=== PATIENT | male | born 1940 | race Caucasian/White ===

== ENCOUNTER 2018-10-10 13:58 | Inpatient (IN) ==
[2018-10-10] MEDS ORDERED: RAPID SEQUENCE INDUCTION BAG ONE (14:04)
[2018-10-10] MEDS ORDERED: PIPERACILLIN/TAZOBACTAM 4.5 GM/120 ML BAG IV ONE (14:21)
[2018-10-10] MEDS ORDERED: PIPERACILL/TAZOBAC CONSULT ACTIVE PRN (14:21)
--- NOTE | 2018-10-10 14:31 | XRay Report ---
XR chest 1V portable HISTORY: Sepsis COMPARISON: None. FINDINGS: No pneumothorax. Partially loculated small left pleural effusion. Right lung is essentially clear. The heart is normal in size. Left upper lobe and basilar densities are noted. IMPRESSION: 1. Partially loculated small left pleural effusion. 2. Left lung densities which may represent atelectasis or pneumonia. Electronically signed by: Devante Jorge M.D. 10/10/2018 2:30 PM
[2018-10-10 14:46] LABS: iSTAT Creatinine 2.9 mg/dl (0.6-1.3); iSTAT Hemoglobin 17.3 g/dl (14.0-18.0); iSTAT Ionized Calcium 1.2 mmol/l (1.12-1.32)
[2018-10-10 14:49] LABS: INR 1.3 (0.9-1.1); Partial Thromboplastin Time 26.3 Seconds (21.0-31.0); Prothrombin Time 12.9 Seconds (9.0-12.0)
[2018-10-10 14:49] LABS: Base Excess VBG -3.4 mEq/L; Oxygen Saturation VBG 62.4 %; pH VBG 7.31 (7.36-7.41)
--- NOTE | 2018-10-10 14:58 | Emergency Department Note ---
Entered by Gillian Purvis acting as a scribe for History of Present Illness General Chief complaint: Fall Source: EMS History of Present Illness Onset (ago): day(s) 5 Pain Consistency: + now resolved and + other (episode ) Quality: + other (fall) Associated symptoms: + other (negative leg pain) Treatments prior to arrival: other (Albuterol ) The patient is a 77 year old male who presents to the Emergency Room with complaints of an episode of a fall that occurred 5 days prior to arrival. Per EMS, the patient fell in his apartment and was unable to get up. Per EMS, the patient was on the floor until his neighbors heard him yelling just prior to arrival and called for help. The patient denies hurting himself. The patient denies leg pain. He denies previous surgeries. Per EMS, the patient received albuterol just prior to arrival. Home Medications Home Medications Medication Instructions Recorded Confirmed Type No Known Home Medications 10/10/18 10/10/18 History Allergies Allergy/AdvReac Type Severity Reaction Status Date / Time No Known Allergies Allergy Unverified 10/10/18 14:52 Past Med/Surg History Medical History Diabetes mellitus (Chronic) Family History Mother Heart attack Social History Feels Safe at Home: Yes Smoking Status: Unknown if ever smoked Hx Alcohol Use: No Hx Substance Use: No Review of Systems See HPI for pertinent positives & negatives. and A total of 10 systems reviewed and were otherwise negative Physical Exam Vital Signs Vital Signs - 24 hr 10/10/18 14:02 10/10/18 14:19 10/10/18 14:30 Temperature Temperature Source Sepsis Recent Fever Within 48 Hours Sepsis Action Taken by Nursing Pulse Rate 105 H 106 H 102 H Pulse Rhythm Pulse Strength Respiratory Rate Respiratory Effort / Characteristics Respiratory Depth Respiratory Pattern Blood Pressure 175/106 H Blood Pressure Mean 129 Blood Pressure Position Pulse Oximetry 100 89 L 96 Oxygen Delivery Method Fraction of Inspired Oxygen 10/10/18 14:33 10/10/18 15:01 10/10/18 15:02 Temperature Temperature Source Sepsis Recent Fever Within 48 Hours Sepsis Action Taken by Nursing Pulse Rate 104 H 101 H 99 H Pulse Rhythm Pulse Strength Respiratory Rate 29 H Respiratory Effort / Characteristics Spontaneous Accessory Muscle Use Labored Short of Breath Respiratory Depth Deep Respiratory Pattern Rapid/Deep Tachypnea Blood Pressure 144/103 H Blood Pressure Mean 116 Blood Pressure Position Pulse Oximetry 100 Oxygen Delivery Method Fraction of Inspired Oxygen 60 10/10/18 15:03 10/10/18 15:15 10/10/18 15:30 Temperature 36.8 C Temperature Source Oral Sepsis Recent Fever Within 48 Hours No Sepsis Action Taken by Nursing No Action Required Pulse Rate 104 H 104 H 99 H Pulse Rhythm Regular Pulse Strength Normal Respiratory Rate 30 H Respiratory Effort / Characteristics Non-Labored Spontaneous Respiratory Depth Normal Respiratory Pattern Regular Blood Pressure 175/106 H 164/131 H Blood Pressure Mean 129 142 Blood Pressure Position Sitting Pulse Oximetry 85 L 99 100 Oxygen Delivery Method BiPAP Fraction of Inspired Oxygen 60 10/10/18 15:31 10/10/18 16:35 Temperature Temperature Source Sepsis Recent Fever Within 48 Hours Sepsis Action Taken by Nursing Pulse Rate 99 H 96 H Pulse Rhythm Pulse Strength Respiratory Rate 26 H Respiratory Effort / Characteristics Respiratory Depth Respiratory Pattern Blood Pressure 122/105 H 162/100 H Blood Pressure Mean 110 Blood Pressure Position Pulse Oximetry 97 94 Oxygen Delivery Method BiPAP Fraction of Inspired Oxygen 60 GENERAL: Patient is awake but slow to answer questions. He appears to be in significant distress. EYES: Pupils are equal round and reactive to light. There is significant ecchymosis in both eyes. ENT: Mucous members are dry. NECK: The neck is nontender and supple. RESPIRATORY: Shallow and ineffective respirations are noted. There are diminished breath sounds noted throughout left greater than right. Scattered rales are noted in all lung [place]. CARDIOVASCULAR: Diminished heart tones are noted. Heart is regular rate and rhythm. There is no definite murmur noted. GASTROINTESTINAL: The abdomen is soft. Bowel sounds are present in all quadrants. Abdomen is nontender MUSCULOSKELETAL/EXTREMITIES: There is no evidence of gross deformity full range of motion is noted in the hips and shoulders SKIN: There is severe edema over all extremities left side greater than right. There is significant venous stasis changes in both lower extremities. Pedal edema was noted bilaterally. NEUROLOGIC: Patient is oriented to person place and time. Strength is symmetric but diminished. Course 1359: Past medical records reviewed. The patient was evaluated in room B1, and a complete history and physical examination were performed. 1525: [facility]. Consultations Consultation #1: [facility] will further evaluate the patient. Time: 15:25 Administered Medications Sodium Chloride (Nss 1000ml) 1,000 mls @ 80 mls/hr IV .[id number] MEMO Stop: 11/09/18 16:50 Last Admin: 10/10/18 17:31 Dose: 80 mls/hr Ampicillin Sodium/Sulbactam Sodium 3,000 mg/ Sodium Chloride 108 mls @ 200 mls/ hr IV Q12H MEMO Stop: 10/17/18 16:59 Last Infusion: 10/10/18 18:21 Dose: 0 mls/hr Admin: 10/10/18 17:31 Dose: 200 mls/hr Discontinued Medications Aspirin (Aspirin Chew) 324 mg PO NOW STA Stop: 10/10/18 18:01 Last Admin: 10/10/18 18:17 Dose: 324 mg Piperacillin Sod/Tazobactam Sod (Zosyn) 4.5 gm in 120 mls @ 240 mls/hr IV NOW ONE Stop: 10/10/18 14:50 Last Admin: 10/10/18 15:20 Dose: 240 mls/hr Sodium Chloride (Nss 1000ml) 1,000 mls @ 999 mls/hr IV .[id number] ONE Stop: 10/10/18 16:11 Last Infusion: 10/10/18 15:20 Dose: 0 mls/hr Admin: 10/10/18 14:15 Dose: 999 mls/hr Furosemide 20 mg/ Syringe 2 mls @ 4 mls/min IV ONE ONE Stop: 10/10/18 17:51 Last Admin: 10/10/18 18:13 Dose: 4 mls/min Miscellaneous () Confirm Administered Dose 1 ea .ROUTE .STK-MED ONE Stop: 10/10/18 14:05 Last Admin: 10/10/18 15:39 Dose: Not Given Medical Decision Making Differential Diagnosis Differential includes acute coronary syndrome, myocardial infarction, CVA, TIA , anemia, infection, pneumonia, UTI, pyelonephritis, poor nutrition, dehydration , electrolyte disturbance,hypoglycemia. Medical Records Attestation: I reviewed the patient's medical records. Home Medications Current Medication List: was personally reviewed by me Laboratory Data Attestation: I reviewed the patient's lab results. Result diagrams: 10/10/18 14:25 10/10/18 14:25 Lab Results 10/10/18 10/10/18 10/10/18 Range/Units 14:25 14:25 14:25 WBC 12.49 H (4.8-10.8) K/uL RBC 5.62 (4.7-6.1) M/uL Hgb 17.5 (14.0-18.0) g/dL POC Hgb (14.0-18.0) g/dl Hct 50.3 (42-52) % POC Hct (42-52) % MCV 89.5 (80-100) fL MCH 31.1 (25-34) pg MCHC 34.8 (32-36) g/dL RDW Std Deviation 51.4 H (36.4-46.3) fL RDW Coeff of Jumana 15.9 H (11.5-14.5) % Plt Count 96 L (130-400) K/uL MPV 12.0 H (7.4-10.4) fL Immature Gran % (Auto) 0.5 % Neut % (Auto) 96.4 % Lymph % (Auto) 1.3 % Piatt % (Auto) 1.8 % Eos % (Auto) 0.0 % Baso % (Auto) 0.0 % Immature Gran # (Auto) 0.06 H (0.00-0.02) K/uL Neut # (Auto) 12.05 H (1.4-6.5) K/uL Lymph # (Auto) 0.16 L (1.2-3.4) K/uL Piatt # (Auto) 0.22 (0.11-0.59) K/uL Eos # (Auto) 0.00 (0-0.5) K/uL Baso # (Auto) 0.00 (0-0.2) K/uL Platelet Estimate Decreased (Normal) ESR (0-14) mm/hr PT 12.9 H (9.0-12.0) Seconds INR 1.3 H (0.9-1.1) APTT 26.3 (21.0-31.0) Seconds PTT Ratio 1.0 VBG pH (7.36-7.41) VBG pCO2 (38-50) mmHg VBG pO2 mmHg VBG HCO3 mmol/L VBG O2 Saturation % VBG Base Excess mEq/L Barometric Pressure mm/Hg POC Sodium (135-144) mEq/L Sodium 144 (136-145) mmol/L POC Potassium (3.3-5.0) mEq/L Potassium 4.1 (3.5-5.1) mmol/L POC Chloride (101-112) mEq/L Chloride 110 H (98-107) mmol/L Carbon Dioxide 22 (21-32) mmol/L POC Total CO2 (24-31) mEq/l Anion Gap 12.0 H (3-11) POC Anion Gap (16-25) mmol/L POC BUN (7-18) mg/dl BUN 60 H (7-18) mg/dl Creatinine 3.23 H (0.6-1.4) mg/dl POC Creatinine (0.6-1.3) mg/dl Est Cr Clr Drug Dosing 22.5 ml/min Est GFR ( Amer) 20.6 Est GFR (Non-Af Amer) 17.8 BUN/Creatinine Ratio 18.6 (10-20) Glucose 109 H (70-99) mg/dl POC Glucose (other) (70-99) mg/dl POC Lactic Acid Nito (0.90-1.70) mmol/L Calcium 8.9 (8.5-10.1) mg/dl POC Ioniz Calcium Doris (1.12-1.32) mmol/l Magnesium 2.3 (1.8-2.4) mg/dl Total Bilirubin 1.2 H (0.2-1) mg/dl AST 98 H (15-37) U/L ALT 52 (12-78) U/L Alkaline Phosphatase 106 (45-117) U/L Total Creatine Kinase 1530 H (39-308) U/L CK-MB (CK-2) 19.7 H (0.5-3.6) ng/ml CK/CKMB % Calc 1.3 (0-3.0) Troponin I 1.110 H* (0-0.045) ng/ml C-Reactive Protein 39.30 H (0-0.29) mg/dl NT-Pro-B Natriuret Pep > 41454 H (0-900) pg/ml Total Protein 7.0 (6.4-8.2) gm/dl Albumin 2.4 L (3.4-5.0) gm/dl Globulin 4.6 H (2.5-4.0) gm/dl Albumin/Globulin Ratio 0.5 L (0.9-2) Amylase 26 (25-115) U/L Lipase 85 (73-393) U/L Procalcitonin (0-0.5) ng/ml Urine Color Urine Appearance (Clear) Urine pH (4.5-7.5) Ur Specific [place] (1.000-1.030) Urine Protein (Negative) Urine Glucose (UA) (Negative) Urine Ketones (Negative) Urine Blood (Negative) Urine Nitrite (Negative) Urine Bilirubin (Negative) Urine Urobilinogen (Negative) Ur Leukocyte Esterase (Negative) Urine WBC (Auto) (0-5) /hpf Urine RBC (Auto) (0-4) /hpf U Hyaline Cast (Auto) (0-5) /lpf U Epithel Cells (Auto) (0-5) /lpf Urine Bacteria (Auto) (Negative) Urine Yeast 10/10/18 10/10/18 10/10/18 Range/Units 14:25 14:25 14:25 WBC (4.8-10.8) K/uL RBC (4.7-6.1) M/uL Hgb (14.0-18.0) g/dL POC Hgb (14.0-18.0) g/dl Hct (42-52) % POC Hct (42-52) % MCV (80-100) fL MCH (25-34) pg MCHC (32-36) g/dL RDW Std Deviation (36.4-46.3) fL RDW Coeff of Jumana (11.5-14.5) % Plt Count (130-400) K/uL MPV (7.4-10.4) fL Immature Gran % (Auto) % Neut % (Auto) % Lymph % (Auto) % Piatt % (Auto) % Eos % (Auto) % Baso % (Auto) % Immature Gran # (Auto) (0.00-0.02) K/uL Neut # (Auto) (1.4-6.5) K/uL Lymph # (Auto) (1.2-3.4) K/uL Piatt # (Auto) (0.11-0.59) K/uL Eos # (Auto) (0-0.5) K/uL Baso # (Auto) (0-0.2) K/uL Platelet Estimate (Normal) ESR 35 H (0-14) mm/hr PT (9.0-12.0) Seconds INR (0.9-1.1) APTT (21.0-31.0) Seconds PTT Ratio VBG pH (7.36-7.41) VBG pCO2 (38-50) mmHg VBG pO2 mmHg VBG HCO3 mmol/L VBG O2 Saturation % VBG Base Excess mEq/L Barometric Pressure mm/Hg POC Sodium (135-144) mEq/L Sodium (136-145) mmol/L POC Potassium (3.3-5.0) mEq/L Potassium (3.5-5.1) mmol/L POC Chloride (101-112) mEq/L Chloride (98-107) mmol/L Carbon Dioxide (21-32) mmol/L POC Total CO2 (24-31) mEq/l Anion Gap (3-11) POC Anion Gap (16-25) mmol/L POC BUN (7-18) mg/dl BUN (7-18) mg/dl Creatinine (0.6-1.4) mg/dl POC Creatinine (0.6-1.3) mg/dl Est Cr Clr Drug Dosing ml/min Est GFR ( Amer) Est GFR (Non-Af Amer) BUN/Creatinine Ratio (10-20) Glucose (70-99) mg/dl POC Glucose (other) (70-99) mg/dl POC Lactic Acid Nito (0.90-1.70) mmol/L Calcium (8.5-10.1) mg/dl POC Ioniz Calcium Doris (1.12-1.32) mmol/l Magnesium Cancelled (1.8-2.4) mg/dl Total Bilirubin (0.2-1) mg/dl AST (15-37) U/L ALT (12-78) U/L Alkaline Phosphatase (45-117) U/L Total Creatine Kinase (39-308) U/L CK-MB (CK-2) Cancelled (0.5-3.6) ng/ml CK/CKMB % Calc Cancelled (0-3.0) Troponin I Cancelled (0-0.045) ng/ml C-Reactive Protein Cancelled (0-0.29) mg/dl NT-Pro-B Natriuret Pep Cancelled (0-900) pg/ml Total Protein (6.4-8.2) gm/dl Albumin (3.4-5.0) gm/dl Globulin (2.5-4.0) gm/dl Albumin/Globulin Ratio (0.9-2) Amylase Cancelled (25-115) U/L Lipase Cancelled (73-393) U/L Procalcitonin 14.92 H (0-0.5) ng/ml Urine Color Urine Appearance (Clear) Urine pH (4.5-7.5) Ur Specific [place] (1.000-1.030) Urine Protein (Negative) Urine Glucose (UA) (Negative) Urine Ketones (Negative) Urine Blood (Negative) Urine Nitrite (Negative) Urine Bilirubin (Negative) Urine Urobilinogen (Negative) Ur Leukocyte Esterase (Negative) Urine WBC (Auto) (0-5) /hpf Urine RBC (Auto) (0-4) /hpf U Hyaline Cast (Auto) (0-5) /lpf U Epithel Cells (Auto) (0-5) /lpf Urine Bacteria (Auto) (Negative) Urine Yeast 10/10/18 10/10/18 10/10/18 Range/Units 14:25 14:25 14:33 WBC (4.8-10.8) K/uL RBC (4.7-6.1) M/uL Hgb (14.0-18.0) g/dL POC Hgb 17.3 (14.0-18.0) g/dl Hct (42-52) % POC Hct 51 (42-52) % MCV (80-100) fL MCH (25-34) pg MCHC (32-36) g/dL RDW Std Deviation (36.4-46.3) fL RDW Coeff of Jumana (11.5-14.5) % Plt Count (130-400) K/uL MPV (7.4-10.4) fL Immature Gran % (Auto) % Neut % (Auto) % Lymph % (Auto) % Piatt % (Auto) % Eos % (Auto) % Baso % (Auto) % Immature Gran # (Auto) (0.00-0.02) K/uL Neut # (Auto) (1.4-6.5) K/uL Lymph # (Auto) (1.2-3.4) K/uL Piatt # (Auto) (0.11-0.59) K/uL Eos # (Auto) (0-0.5) K/uL Baso # (Auto) (0-0.2) K/uL Platelet Estimate (Normal) ESR (0-14) mm/hr PT (9.0-12.0) Seconds INR (0.9-1.1) APTT (21.0-31.0) Seconds PTT Ratio VBG pH (7.36-7.41) VBG pCO2 (38-50) mmHg VBG pO2 mmHg VBG HCO3 mmol/L VBG O2 Saturation % VBG Base Excess mEq/L Barometric Pressure mm/Hg POC Sodium 147 H (135-144) mEq/L Sodium (136-145) mmol/L POC Potassium 4.0 (3.3-5.0) mEq/L Potassium (3.5-5.1) mmol/L POC Chloride 107 (101-112) mEq/L Chloride (98-107) mmol/L Carbon Dioxide (21-32) mmol/L POC Total CO2 22 L (24-31) mEq/l Anion Gap (3-11) POC Anion Gap 23.0 (16-25) mmol/L POC BUN 56 H (7-18) mg/dl BUN (7-18) mg/dl Creatinine (0.6-1.4) mg/dl POC Creatinine 2.9 H (0.6-1.3) mg/dl Est Cr Clr Drug Dosing ml/min Est GFR ( Amer) Est GFR (Non-Af Amer) BUN/Creatinine Ratio (10-20) Glucose (70-99) mg/dl POC Glucose (other) 114 H (70-99) mg/dl POC Lactic Acid Nito 3.75 H (0.90-1.70) mmol/L Calcium (8.5-10.1) mg/dl POC Ioniz Calcium Doris 1.20 (1.12-1.32) mmol/l Magnesium (1.8-2.4) mg/dl Total Bilirubin (0.2-1) mg/dl AST (15-37) U/L ALT (12-78) U/L Alkaline Phosphatase (45-117) U/L Total Creatine Kinase Cancelled (39-308) U/L CK-MB (CK-2) (0.5-3.6) ng/ml CK/CKMB % Calc (0-3.0) Troponin I (0-0.045) ng/ml C-Reactive Protein (0-0.29) mg/dl NT-Pro-B Natriuret Pep (0-900) pg/ml Total Protein (6.4-8.2) gm/dl Albumin (3.4-5.0) gm/dl Globulin (2.5-4.0) gm/dl Albumin/Globulin Ratio (0.9-2) Amylase (25-115) U/L Lipase (73-393) U/L Procalcitonin (0-0.5) ng/ml Urine Color Urine Appearance (Clear) Urine pH (4.5-7.5) Ur Specific [place] (1.000-1.030) Urine Protein (Negative) Urine Glucose (UA) (Negative) Urine Ketones (Negative) Urine Blood (Negative) Urine Nitrite (Negative) Urine Bilirubin (Negative) Urine Urobilinogen (Negative) Ur Leukocyte Esterase (Negative) Urine WBC (Auto) (0-5) /hpf Urine RBC (Auto) (0-4) /hpf U Hyaline Cast (Auto) (0-5) /lpf U Epithel Cells (Auto) (0-5) /lpf Urine Bacteria (Auto) (Negative) Urine Yeast 10/10/18 10/10/18 Range/Units 14:37 14:40 WBC (4.8-10.8) K/uL RBC (4.7-6.1) M/uL Hgb (14.0-18.0) g/dL POC Hgb (14.0-18.0) g/dl Hct (42-52) % POC Hct (42-52) % MCV (80-100) fL MCH (25-34) pg MCHC (32-36) g/dL RDW Std Deviation (36.4-46.3) fL RDW Coeff of Jumana (11.5-14.5) % Plt Count (130-400) K/uL MPV (7.4-10.4) fL Immature Gran % (Auto) % Neut % (Auto) % Lymph % (Auto) % Piatt % (Auto) % Eos % (Auto) % Baso % (Auto) % Immature Gran # (Auto) (0.00-0.02) K/uL Neut # (Auto) (1.4-6.5) K/uL Lymph # (Auto) (1.2-3.4) K/uL Piatt # (Auto) (0.11-0.59) K/uL Eos # (Auto) (0-0.5) K/uL Baso # (Auto) (0-0.2) K/uL Platelet Estimate (Normal) ESR (0-14) mm/hr PT (9.0-12.0) Seconds INR (0.9-1.1) APTT (21.0-31.0) Seconds PTT Ratio VBG pH 7.31 L (7.36-7.41) VBG pCO2 47 (38-50) mmHg VBG pO2 34 mmHg VBG HCO3 23 mmol/L VBG O2 Saturation 62.4 % VBG Base Excess -3.4 mEq/L Barometric Pressure 741.9 mm/Hg POC Sodium (135-144) mEq/L Sodium (136-145) mmol/L POC Potassium (3.3-5.0) mEq/L Potassium (3.5-5.1) mmol/L POC Chloride (101-112) mEq/L Chloride (98-107) mmol/L Carbon Dioxide (21-32) mmol/L POC Total CO2 (24-31) mEq/l Anion Gap (3-11) POC Anion Gap (16-25) mmol/L POC BUN (7-18) mg/dl BUN (7-18) mg/dl Creatinine (0.6-1.4) mg/dl POC Creatinine (0.6-1.3) mg/dl Est Cr Clr Drug Dosing ml/min Est GFR ( Amer) Est GFR (Non-Af Amer) BUN/Creatinine Ratio (10-20) Glucose (70-99) mg/dl POC Glucose (other) (70-99) mg/dl POC Lactic Acid Nito (0.90-1.70) mmol/L Calcium (8.5-10.1) mg/dl POC Ioniz Calcium Doris (1.12-1.32) mmol/l Magnesium (1.8-2.4) mg/dl Total Bilirubin (0.2-1) mg/dl AST (15-37) U/L ALT (12-78) U/L Alkaline Phosphatase (45-117) U/L Total Creatine Kinase (39-308) U/L CK-MB (CK-2) (0.5-3.6) ng/ml CK/CKMB % Calc (0-3.0) Troponin I (0-0.045) ng/ml C-Reactive Protein (0-0.29) mg/dl NT-Pro-B Natriuret Pep (0-900) pg/ml Total Protein (6.4-8.2) gm/dl Albumin (3.4-5.0) gm/dl Globulin (2.5-4.0) gm/dl Albumin/Globulin Ratio (0.9-2) Amylase (25-115) U/L Lipase (73-393) U/L Procalcitonin (0-0.5) ng/ml Urine Color Dark Yellow Urine Appearance Turbid H (Clear) Urine pH 5.0 (4.5-7.5) Ur Specific [place] 1.017 (1.000-1.030) Urine Protein 3+ H (Negative) Urine Glucose (UA) Negative (Negative) Urine Ketones Negative (Negative) Urine Blood 3+ H (Negative) Urine Nitrite Negative (Negative) Urine Bilirubin Negative (Negative) Urine Urobilinogen Negative (Negative) Ur Leukocyte Esterase 3+ H (Negative) Urine WBC (Auto) >30 H (0-5) /hpf Urine RBC (Auto) 5-10 H (0-4) /hpf U Hyaline Cast (Auto) 1-5 (0-5) /lpf U Epithel Cells (Auto) 5-10 H (0-5) /lpf Urine Bacteria (Auto) 3+ H (Negative) Urine Yeast Not Reportable Imaging Data Radiologist's Impression: Radiology results as stated below per my review and the radiologist's interpretation: CT OF THE ABDOMEN AND PELVIS WITHOUT CONTRAST CLINICAL HISTORY: found on floor COMPARISON STUDY: No previous studies for comparison. TECHNIQUE: Axial images of the abdomen and pelvis were obtained without IV contrast. Images were reviewed in the axial, sagittal, and coronal planes. Automated exposure control was utilized for the study. A dose lowering technique was utilized adhering to the principles of ALARA. FINDINGS: Please note that the chest will be reported separately. Evaluation of the abdomen and pelvis is suboptimal on this unenhanced exam. Bilateral pleural effusions are noted with bibasilar opacities. There is left-sided gynecomastia. There is body wall edema, greater on the left. A small amount of ascites is noted. There is a gallstone within the gallbladder. Unenhanced images of the liver, spleen, adrenal glands, right kidney and pancreas are normal. There is moderate left hydroureteronephrosis with dilatation of the left ureter to the level the bladder. A Moreno balloon is present within the bladder which is collapsed. Bladder wall thickening and marked enlargement of the prostate. Moderate left renal atrophy is noted. Exam is compromised by motion artifact. There is no evidence for a bowel obstruction. There is no pneumatosis, free air or portal venous gas. No acute lumbar spine or pelvic fracture is identified. Prominent rectal peritoneal lymph nodes are normal in size. IMPRESSION: 1. Evidence for volume overload with bilateral pleural effusions, body wall edema and small ascites. 2. Suboptimal evaluation of the abdomen and pelvis given the lack of IV contrast. 3. Cholelithiasis. 4. Moderate left hydroureteronephrosis with dilatation of the left ureter to the level of the bladder. Etiology for dilatation not clear on this exam although this may be chronic given moderate left renal atrophy. No ureteral calculi. 5. Moderate nonspecific bladder wall thickening with marked enlargement of the prostate. Electronically signed by: Noe Malik M.D. 10/10/2018 3:[address] OF THE CERVICAL SPINE WITHOUT CONTRAST CLINICAL HISTORY: fall COMPARISON STUDY: Cervical spine CT June 11, 2015. TECHNIQUE: Helical axial images of the cervical spine were obtained without IV contrast. Sagittal and coronal reconstructions were viewed. Automated exposure control was utilized for the study. A dose lowering technique was utilized adhering to the principles of ALARA. FINDINGS: Alignment of the cervical spine is anatomic. Craniocervical junction is intact. There is no acute cervical spine fracture. Facet joints are intact. There is moderate multilevel degenerative disc disease and facet arthrosis. There is anasarca. There is prevertebral edema. Left mastoid air cells are partially opacified. IMPRESSION: 1. No acute cervical spine fracture or subluxation. 2. Prevertebral edema, a nonspecific finding in the setting of anasarca/volume overload. 3. Partially opacified left mastoid air cells. Electronically signed by: Noe Malik M.D. 10/10/2018 3:11 PM XR chest 1V portable HISTORY: Sepsis COMPARISON: None. FINDINGS: No pneumothorax. Partially loculated small left pleural effusion. Right lung is essentially clear. The heart is normal in size. Left upper lobe and basilar densities are noted. IMPRESSION: 1. Partially loculated small left pleural effusion. 2. Left lung densities which may represent atelectasis or pneumonia. Electronically signed by: Devante Jorge M.D. 10/10/2018 2:[address] OF THE HEAD WITHOUT CONTRAST CLINICAL HISTORY: Fall. COMPARISON STUDY: Head CT June 11, 2015. TECHNIQUE: Helical axial images of the head were obtained without IV contrast. Automated exposure control was utilized for the study. A dose lowering technique was utilized adhering to the principles of ALARA. FINDINGS: No acute intracranial hemorrhage, midline shift or mass effect is present. Ventricular system is stable. Basilar cisterns are patent. There are no extra-axial collections. White matter hypodensity suggests small vessel disease. Exam is mildly compromised by artifact. Left scalp edema is noted. There is no calvarial fracture. IMPRESSION: 1. No acute intracranial findings. 2. No calvarial fracture. Electronically signed by: Noe Malik M.D. 10/10/2018 3:[address] chest wo con CT DOSE: 3182.82 mGy.cm HISTORY: Abnormal chest x-ray. TECHNIQUE: Multiaxial CT images of the chest were performed without contrast. A dose lowering technique was utilized adhering to the principles of ALARA. COMPARISON: Chest 10/10/2018. FINDINGS: Small amount of mucoid material within the trachea. A few opacified left lower lobe bronchi. No pneumothorax. Mild emphysema. Linear densities within the left upper lobe as well as bilateral lower lobe consolidation, left greater than right. Moderate to severe body wall edema. Cholelithiasis. Ascites is partially identified. This is better appreciated on the same day chest CT. The heart is mildly enlarged. Small pericardial effusion and moderate bilateral pleural effusions are noted. Normal caliber thoracic aorta. No mediastinal hilar lymphadenopathy. There is a focal 1 cm groundglass nodule within the left upper lobe on image 115. IMPRESSION: 1. Moderate bilateral pleural effusions and a small pericardial effusion. 2. Mild cardiomegaly. 3. Mild emphysema. 4. Bilateral airspace opacities as described above. This favors atelectasis. However, a superimposed left lower lobe pneumonia could also have a similar appearance. 5. Cholelithiasis. 6. Ascites. 7. A 1 cm groundglass nodule within the left upper lobe. Six-month chest CT follow-up is recommended to ensure stability. Electronically signed by: Devante Jorge M.D. 10/10/2018 3:14 PM ECG Data Attestation: I personally reviewed and interpreted this ECG as follows: Indication: weakness Rate (beats per minute): 107 Rhythm: sinus tachycardia Findings: + other (Poor R wave progression); no nonspecific-ST abn and no ectopy Comparison ECG Date: no prior available Blood Pressure Blood Pressure Findings: Elevated blood pressure Blood Pressure Disposition: further management by hospitalist MDM Narrative The patient is a 77-year-old male who presented to the emergency department for an evaluation. The patient was found on his floor in his apartment. Reportedly he was there for approximately 4-5 days. The patient states that he fell backwards and was unable to stand. He had no specific traumatic injury but because of the time spent on the floor had significant dependent edema as well as rhabdomyolysis. The patient was also found to have respiratory distress. This appears to be more consistent with pneumonia as well as pulmonary edema. A Moreno catheter was placed and the patient was found to be in urinary retention. He was treated with IV fluids and IV antibiotics. He was reevaluated multiple times. He was placed on BiPAP because of his respiratory distress. He tolerated this quite well. I discussed the patient's laboratory and radiographic studies with him as well as his family members. His brother came to the emergency department to be with him. Because of his symptoms and his findings I discussed his case with the on-call [facility] hospitalist. They have agreed to evaluate the patient in the emergency department for further management and disposition. Impression & Plan Pulmonary edema, Pneumonia, Urinary retention, Acute pyelonephritis, Acute renal failure, Rhabdomyolysis, Anasarca Critical Care Time I have personally spent greater than 90 minutes of critical care time in the direct management of this patient. This includes bedside care, interpretation of diagnostic studies, and testing, discussion with consultants, patient, and family members, and other required patient management activities. This 90 minutes is in excess of all separately billable procedures. Critical Care Time: Yes Total Critical Care Time: 90 Discharge Plan Visit Data *Final* Discharge Date/Time: 10/10/18 16:35 Chief Complaint: Fall Other Complaint: Hypertension Shortness of Breath/Dyspnea ED Provider: Santiago Hoang Discharge Problem: Pulmonary edema, Pneumonia, Urinary retention, Acute pyelonephritis, Acute renal failure, Rhabdomyolysis, Anasarca Patient Disposition: Admitted As Inpatient Discharge Instructions Interventions: ED Discharge Assessment Last Done: 10/10/18 16:35 The scribe's documentation has been prepared under my direction and personally reviewed by me in its entirety. I confirm that the note above accurately reflects all work, treatment, procedures, and medical decision making performed by me.
[2018-10-10 15:01] LABS: Alanine Aminotransferase 52 U/L (12-78); Albumin Level 2.4 gm/dl (3.4-5.0); Amylase 26 U/L (25-115); Aspartate Aminotransferase 98 U/L (15-37); BUN Creatinine Ratio 18.6 (10-20); Blood Urea Nitrogen 60 mg/dl (7-18); Calcium 8.9 mg/dl (8.5-10.1); Carbon Dioxide 22 mmol/L (21-32); Chloride 110 mmol/L (98-107); Creatinine Clr Calc Pharmacy 22.5 ml/min; Est GFR (African American) 20.6; Est GFR (Non-African American) 17.8; Glucose 109 mg/dl (70-99); Magnesium 2.3 mg/dl (1.8-2.4); Potassium 4.1 mmol/L (3.5-5.1); Sodium 144 mmol/L (136-145)
[2018-10-10 15:01] LABS: Appearance Urine Turbid (Clear); Bacteria Urine Automated 3+ (Negative); Bilirubin Urine Negative (Negative); Blood Urine 3+ (Negative); Color Urine Dark Yellow; Glucose Urine UA Negative (Negative); Ketones Urine Negative (Negative); Leukocyte Esterase Urine 3+ (Negative); Nitrite Urine Negative (Negative); Protein Urine 3+ (Negative); Specific Gravity Urine 1.017 (1.000-1.030); Urobilinogen Urine Negative (Negative); WBC Urine Automated >30 /hpf (0-5)
[2018-10-10 15:03] LABS: Hematocrit (blood only) 50.3 % (42-52); Hemoglobin 17.5 g/dL (14.0-18.0); Immature Granulocytes # (auto) 0.06 K/uL (0.00-0.02); Immature Granulocytes % (auto) 0.5 %; Lymphocytes # (auto) 0.16 K/uL (1.2-3.4); Lymphocytes % (auto) 1.3 %; Mean Corpuscular Hgb Conc 34.8 g/dL (32-36); Mean Corpuscular Volume 89.5 fL (80-100); Monocytes # (auto) 0.22 K/uL (0.11-0.59); Monocytes % (auto) 1.8 %; Neutrophils # (auto) 12.05 K/uL (1.4-6.5); Neutrophils % (auto) 96.4 %; Platelet Count 96 K/uL (130-400); Platelet Estimate Decreased (Normal); RDW Coefficient of Variation 15.9 % (11.5-14.5); RDW Standard Deviation 51.4 fL (36.4-46.3); Red Blood Count 5.62 M/uL (4.7-6.1); White Blood Count 12.49 K/uL (4.8-10.8)
--- NOTE | 2018-10-10 15:06 | CT Scan Report ---
CT OF THE HEAD WITHOUT CONTRAST CLINICAL HISTORY: Fall. COMPARISON STUDY: Head CT June 11, 2015. TECHNIQUE: Helical axial images of the head were obtained without IV contrast. Automated exposure con trol was utilized for the study. A dose lowering technique was utilized adhering to the principles o f ALARA. FINDINGS: No acute intracranial hemorrhage, midline shift or mass effect is present. Ventricular syst em is stable. Basilar cisterns are patent. There are no extra-axial collections. White matter hypoden sity suggests small vessel disease. Exam is mildly compromised by artifact. Left scalp edema is noted . There is no calvarial fracture. IMPRESSION: 1. No acute intracranial findings. 2. No calvarial fracture. Electronically signed by: Noe Malik M.D. 10/10/2018 3:05 PM
[2018-10-10] MEDS ORDERED: SODIUM CHLORIDE 0.9% 1000ML 1,000 ML IV ONE (15:11)
--- NOTE | 2018-10-10 15:12 | CT Scan Report ---
CT OF THE CERVICAL SPINE WITHOUT CONTRAST CLINICAL HISTORY: fall COMPARISON STUDY: Cervical spine CT June 11, 2015. TECHNIQUE: Helical axial images of the cervical spine were obtained without IV contrast. Sagittal a nd coronal reconstructions were viewed. Automated exposure control was utilized for the study. A do se lowering technique was utilized adhering to the principles of ALARA. FINDINGS: Alignment of the cervical spine is anatomic. Craniocervical junction is intact. There is no acute cervical spine fracture. Facet joints are intact. There is moderate multilevel degenerative di sc disease and facet arthrosis. There is anasarca. There is prevertebral edema. Left mastoid air cell s are partially opacified. IMPRESSION: 1. No acute cervical spine fracture or subluxation. 2. Prevertebral edema, a nonspecific finding in the setting of anasarca/volume overload. 3. Partially opacified left mastoid air cells. Electronically signed by: Noe Malik M.D. 10/10/2018 3:11 PM
--- NOTE | 2018-10-10 15:15 | CT Scan Report ---
CT chest wo con CT DOSE: 3182.82 mGy.cm HISTORY: Abnormal chest x-ray. TECHNIQUE: Multiaxial CT images of the chest were performed without contrast. A dose lowering techni que was utilized adhering to the principles of ALARA. COMPARISON: Chest 10/10/2018. FINDINGS: Small amount of mucoid material within the trachea. A few opacified left lower lobe bronchi . No pneumothorax. Mild emphysema. Linear densities within the left upper lobe as well as bilateral l ower lobe consolidation, left greater than right. Moderate to severe body wall edema. Cholelithiasis. Ascites is partially identified. This is better appreciated on the same day chest CT. The heart is m ildly enlarged. Small pericardial effusion and moderate bilateral pleural effusions are noted. Normal caliber thoracic aorta. No mediastinal hilar lymphadenopathy. There is a focal 1 cm groundglass nodu le within the left upper lobe on image 115. IMPRESSION: 1. Moderate bilateral pleural effusions and a small pericardial effusion. 2. Mild cardiomegaly. 3. Mild emphysema. 4. Bilateral airspace opacities as described above. This favors atelectasis. However, a superimposed left lower lobe pneumonia could also have a similar appearance. 5. Cholelithiasis. 6. Ascites. 7. A 1 cm groundglass nodule within the left upper lobe. Six-month chest CT follow-up is recommended to ensure stability. Electronically signed by: Devante Jorge M.D. 10/10/2018 3:14 PM
[2018-10-10 15:16] LABS: Albumin Globulin Ratio 0.5 (0.9-2); Alkaline Phosphatase 106 U/L (45-117); Bilirubin,Total 1.2 mg/dl (0.2-1); Creatine Kinase MB 19.7 ng/ml (0.5-3.6); Globulin 4.6 gm/dl (2.5-4.0); NT Pro B Type Natriuretic Pept > 35000 pg/ml (0-900)
--- NOTE | 2018-10-10 15:20 | CT Scan Report ---
CT OF THE ABDOMEN AND PELVIS WITHOUT CONTRAST CLINICAL HISTORY: found on floor COMPARISON STUDY: No previous studies for comparison. TECHNIQUE: Axial images of the abdomen and pelvis were obtained without IV contrast. Images were revi ewed in the axial, sagittal, and coronal planes. Automated exposure control was utilized for the norma dy. A dose lowering technique was utilized adhering to the principles of ALARA. FINDINGS: Please note that the chest will be reported separately. Evaluation of the abdomen and pelvi s is suboptimal on this unenhanced exam. Bilateral pleural effusions are noted with bibasilar opaciti es. There is left-sided gynecomastia. There is body wall edema, greater on the left. A small amount o f ascites is noted. There is a gallstone within the gallbladder. Unenhanced images of the liver, sple en, adrenal glands, right kidney and pancreas are normal. There is moderate left hydroureteronephrosi s with dilatation of the left ureter to the level the bladder. A Moreno balloon is present within the bladder which is collapsed. Bladder wall thickening and marked enlargement of the prostate. Moderate left renal atrophy is noted. Exam is compromised by motion artifact. There is no evidence for a bowel obstruction. There is no pneumatosis, free air or portal venous gas. No acute lumbar spine or pelvic fracture is identified. Prominent rectal peritoneal lymph nodes are normal in size. IMPRESSION: 1. Evidence for volume overload with bilateral pleural effusions, body wall edema and small ascites. 2. Suboptimal evaluation of the abdomen and pelvis given the lack of IV contrast. 3. Cholelithiasis. 4. Moderate left hydroureteronephrosis with dilatation of the left ureter to the level of the bladder . Etiology for dilatation not clear on this exam although this may be chronic given moderate left leonid al atrophy. No ureteral calculi. 5. Moderate nonspecific bladder wall thickening with marked enlargement of the prostate. Electronically signed by: Noe Malik M.D. 10/10/2018 3:18 PM
[2018-10-10 15:32] LABS: Creatine Kinase 1530 U/L (39-308)
[2018-10-10] MEDS ORDERED: ACETAMINOPHEN 325 MG TAB PO PRN (16:51)
--- NOTE | 2018-10-10 16:52 | History & Physical Report ---
Date of Service October 10, 2018 Assessment & Plan (1) TERE (acute kidney injury): Possibly due to hydronephrosis (see below) vs. pre-renal from no PO intake while he was down. - Gentle IV fluids - Monitor Cr - If Cr improving now that he has a Moreno in and is being moved, no need for nephrology consult (2) Hydronephrosis: CT a/p on 10/10 showed moderate left hydroureteronephrosis with dilatation of the left ureter to the level of the bladder. Unclear cause, though possibly due to being down on the left side? - Urology consult (3) Fall: Patient seems very casual about falling and not being able to get up for 5 days. Prior to the fall, he tells me that he did fine on his own and had no issues with mobility. - PT/OT consults - CM for hopeful placement (4) Pulmonary edema: Imaging (CT chest and CT a/p on 10/10) shows signs of volume overload. BNP is off chart. Patient was in respiratory distress on admission, but did well on BiPap. Patient denies any history of heart disease, CHF, or other heart issues. - Echo - Gentle diuresis (giving with some gentle IV fluids to help flush kidney even though rhabdo is mild) - I&Os, weights - Monitor volume status (5) Elevated troponin: Initial troponin of 1.1 without patient endorsing any chest pain. No EKG on our system. - Stat EKG - Trend troponins & EKGs - Start ASA 81mg - Echo as above (6) Pneumonia: CT chest on 10/10 showed extensive, bilateral pneumonia. Procalcitonin was elevated to 15 on admission. Patient choked on water with the RN, making aspiration a concern. - Unasyn with renal-dosing - Low concern for atypicals, so will hold off on azithromycin - Aspiration precautions - SACK REPAIRER evaluation on Thursday (7) UTI (urinary tract infection): UA on 10/10 showed evidence of infection. - Unasyn as above for pneumonia - Follow up urine culture (8) Dystrophic nail: Toes on both legs are overgrown, and there is keratinization advancing up the dorsum of the foot. - Podiatry consult on Thursday (9) DVT prophylaxis: Heparin BID History of Present Illness Primary Care Provider: NO PCP 77yo M w/ hx of possible DM who presents after being found down after 5 days per patient. Per patient, he fell 5 days ago due to a mechanical fall where he just couldn't stay up. He says he fell backwards, but then denies he struck his head or lost consciousness. He reports that he was able to "wiggle around," but was not able to get up off the ground because he was too weak. As such, he lay there for 5 days. His brother is in the room and agrees with this report. At this time, he is on BiPap and denies any major concerns. Denies any pain anywhere, denies any chest pain, denies nausea, vomiting. Reports he is hungry. Allergies Allergy/AdvReac Type Severity Reaction Status Date / Time No Known Allergies Allergy Unverified 10/10/18 14:52 Home Medications Home Medications Medication Instructions Recorded Confirmed Type No Known Home Medications 10/10/18 10/10/18 History Past Med/Surg History Medical History Diabetes mellitus (Chronic) Family History Mother Heart attack Social History Feels Safe at Home: Yes Smoking Status: Unknown if ever smoked Hx Alcohol Use: No Hx Substance Use: No Review of Systems Constitutional: no fever, no chills and no sweats Eyes: no diplopia Ear, Nose, Mouth, Throat: no ear trauma, no nasal discharge and no dental pain Respiratory: no cough, no chest congestion and no dyspnea Cardiovascular: no chest pain, no dyspnea on exertion, no palpitations and no syncope Gastrointestinal: no abdominal pain, no belching, no constipation, no diarrhea/ loose stools, no blood in stools and no melena Musculoskeletal: no back pain, no joint pain and no muscle weakness Integumentary: no rash, no skin ulcer and no erythema Neurologic: no generalized weakness, no loss of sensation, no numbness and no paresthesia Psychiatric: no depression and no anxiety Endocrine: no fatigue, no polydipsia and no polyphagia Physical Exam 2 Vital Signs (Past 24 Hours): Last Vital Signs Temp 36.8 C 10/10/18 15:03 Pulse 96 H 10/10/18 16:35 Resp 26 H 10/10/18 16:35 BP 162/100 H 10/10/18 16:35 Pulse Ox 94 10/10/18 16:35 Constitutional: WD/WN, vitals as above Eyes: EOM intact bilaterally; no conjunctival abnormality ENMT: external ear and nose normal, oropharynx normal Neck: trachea midline, no thyromegaly normal visual inspection Respiratory: normal respiratory effort, lungs clear to auscultation no respiratory distress Cardiovascular: RRR, no murmur, no edema Gastrointestinal (Abdomen): Inspection/Auscultation: abdomen normal to inspection; abdomen not distended Musculoskeletal: no cyanosis or clubbing, extremities motor strength 5/5 Skin: + erythema (Along much of his left side), + nails discolored and + nails dystrophic (With keratanization up to mid dorsum of foot) Neurologic: moves all extremities and awake Psychiatric: Orientation: alert, oriented to person and cooperative
[2018-10-10] MEDS: AMPICILLIN/SULBACTAM SOD 3,000 MG in 0.9 % SODIUM CHLORIDE 100 ML IV SCH (17:31)
[2018-10-10] MEDS: SODIUM CHLORIDE 0.9% 1000ML 1,000 ML IV SCH (17:31)
[2018-10-10] MEDS ORDERED: FUROSEMIDE 20 MG in SYRINGE 0 ML IV ONE (17:50)
[2018-10-10] MEDS ORDERED: ASPIRIN 81 MG CHEW PO STA (18:00)
[2018-10-10] MEDS ORDERED: ALBUT/IPRATROP 3MG/0.5MG NEB 3 ML VIAL NEB PRN (19:30)
[2018-10-10] MEDS ORDERED: ALBUT/IPRATROP 3MG/0.5MG NEB 3 ML VIAL NEB STA (19:30)
[2018-10-10] MEDS ORDERED: HEPARIN SOD 5,000 UNIT/0.5 ML VIAL SQ SCH (21:00)
[2018-10-10] MEDS: HEPARIN STANDARD DEXTROSE 25,000 UNITS/500 ML IV SCH (21:50)
[2018-10-10] MEDS ORDERED: HEPARIN IV BOLUS 6,000 UNITS in SYRINGE 0 ML IV ONE (22:00)
[2018-10-11] MEDS ORDERED: VANCOMYCIN CONSULT ACTIVE PRN (01:54)
[2018-10-11] MEDS ORDERED: VANCOMYCIN HCL 1,000 MG in SODIUM CHLORIDE 0.9% 250 ML IV SCH (02:00)
[2018-10-11] MEDS ORDERED: VANCOMYCIN HCL 1,750 MG in SODIUM CHLORIDE 0.9% 500 ML IV SCH (02:15)
[2018-10-11 04:26] LABS: Partial Thromboplastin Time 129.8 Seconds (21.0-31.0)
[2018-10-11 04:27] LABS: BUN Creatinine Ratio 21.8 (10-20); Calcium 8.1 mg/dl (8.5-10.1); Est GFR (African American) 23.2; Magnesium 2.1 mg/dl (1.8-2.4); Potassium 3.7 mmol/L (3.5-5.1)
[2018-10-11 04:43] LABS: Hematocrit (blood only) 41.1 % (42-52); Mean Corpuscular Hgb Conc 34.1 g/dL (32-36); Mean Platelet Volume 12.3 fL (7.4-10.4); Platelet Count 82 K/uL (130-400); RDW Coefficient of Variation 15.6 % (11.5-14.5); RDW Standard Deviation 49.5 fL (36.4-46.3); Red Blood Count 4.67 M/uL (4.7-6.1); White Blood Count 12.97 K/uL (4.8-10.8)
[2018-10-11] MEDS: AMPICILLIN/SULBACTAM SOD 3,000 MG in 0.9 % SODIUM CHLORIDE 100 ML IV SCH ×2 (05:35→16:54)
[2018-10-11] MEDS ORDERED: PERFLUTREN LIPID MICROSPHERE (DEFINITY) IV ONE (07:10)
[2018-10-11] MEDS ORDERED: MENTHOL-ZINC OXIDE 360 APPLN/120 GM TUBE EXT PRN (09:02)
--- NOTE | 2018-10-11 09:24 | Urology Consultation ---
Date of Consultation October 11, 2018 Assessment & Plan (1) UTI (urinary tract infection): UA grossly abnormal, UC&S pending. BC prelim positive. Afebrile, some tachycardia. Profound leukocytosis. Continue broad spectrum abx while awaiting sensitivities. (2) Urinary retention: Maintain white catheter for at least 2-3 weeks for maximal drainage. UO adequate at this time, draining cloudy yellow urine. Has not required irrigation. Not a candidate for alpha blockers due to pt condition and risk for repeat falls. (3) Hydronephrosis: TERE with L atrophy kidney with associated L hydronephrosis with tortuous/ dilated L ureter. Related to very prostate and ALMONTE. Likely chronic in nature. Ureteral stenting is not indicated at this time. Concern for rhabdomyolysis also contributing. Agree with hospitalist team to focus on rehydration, and continue white catheter allow for maximal drainage and output monitoring. Kidney function beginning to improve. UO adequate. No surgical intervention required at this time. We will continue to monitor closely with primary service. Thank you for allowing us to participate in the acute care of Mr. Arana. Supervising Physician Co-Signing Physician Notes All the patient's imaging studies notes some labs were reviewed Agree with above assessment History of Present Illness Attending Physician: Mahendra Mckeon Ángel History of Present Illness 77 YO M presented to ED after being found down after 5 days per patient. Reportedly fell backward due to mechanical fall, unable to get up on his own due to weakness. Neighbors heard him calling for help. At time of evaluation, diagnosed with acute kidney failure, pulmonary edema, associated leukocytosis, positive UA for bacteria and RBC. CK also very elevated consistent with ?rhabdomylosis. CT imaging reveals atrophy L kidney with associated dilated/tortuous L ureter leading to thick bladder wall. Urinary catheter placed in ED. No family at bedside at time of evaluation. Alert and oriented to self. Answering some questions appropriately but unclear on details. Denies previous urologic evaluation or concerns. Has never been evaluated by our service before. He denies bother with catheter. Allergies Allergy/AdvReac Type Severity Reaction Status Date / Time No Known Allergies Allergy Unverified 10/10/18 14:52 Home Medications Home Medications Medication Instructions Recorded Confirmed Type No Known Home Medications 10/10/18 10/10/18 History Patient History Medical History Diabetes mellitus (Chronic) Family History Mother Heart attack Social History Current Living Situation: Alone Other Information That Helps Us Care for You: No Feels Safe at Home: Declines to Answer Safety Concerns: Feels Safe At This Time Smoking Status: Former smoker Hx Alcohol Use: No Hx Substance Use: No Beliefs That Will Affect Care: None Communication Ability: Effective Review of Systems Constitutional: no fever and no chills Eyes: no problem reported Ear, Nose, Mouth, Throat: no ear pain Respiratory: no problem reported Cardiovascular: no chest pain Gastrointestinal: no abdominal pain Genitourinary (Male): no dysuria, no urinary hesitancy, no hematuria, no flank pain and no urinary urgency Integumentary: no acne Neurologic: no problem reported Psychiatric: no behavioral changes Endocrine: no polyuria Physical Exam 2 Vital Signs (Past 24 Hours): Last Vital Signs Temp 36.5 C 10/11/18 08:37 Pulse 99 H 10/11/18 08:37 Resp 20 10/11/18 08:37 BP 151/92 H 10/11/18 08:37 Pulse Ox 96 10/11/18 08:37 Constitutional: + ill appearing and + disheveled; no acute distress Eyes: no nystagmus ENMT: Ears: + hearing impairment Neck: trachea midline Respiratory: no respiratory distress and does not use accessory muscles Nasal canula intact Cardiovascular: Vessels: no JVD Gastrointestinal (Abdomen): Percussion/Palpation: abdomen soft Skin: + crusts, + dry skin and + nails dystrophic Neurologic: awake Psychiatric: Affect: + flat affect Genitourinary: Bilateral, diffuse scrotal and perineal swelling/edema. Some creamy/white urethral discharge around white. No ecchymosis, erythema or induration. White cathere draining cloudy yellow urine with mild sediment. Results & Data Laboratory Results Laboratory Results - last 48 hr 10/10/18 10/10/18 10/10/18 14:25 14:25 14:25 WBC 12.49 H RBC 5.62 Hgb 17.5 POC Hgb Hct 50.3 POC Hct MCV 89.5 MCH 31.1 MCHC 34.8 RDW Std Deviation 51.4 H RDW Coeff of Jumana 15.9 H Plt Count 96 L MPV 12.0 H Immature Gran % (Auto) 0.5 Neut % (Auto) 96.4 Lymph % (Auto) 1.3 [place] % (Auto) 1.8 Eos % (Auto) 0.0 Baso % (Auto) 0.0 Immature Gran # (Auto) 0.06 H Neut # (Auto) 12.05 H Lymph # (Auto) 0.16 L [place] # (Auto) 0.22 Eos # (Auto) 0.00 Baso # (Auto) 0.00 Platelet Estimate Decreased ESR PT 12.9 H INR 1.3 H APTT 26.3 PTT Ratio 1.0 VBG pH VBG pCO2 VBG pO2 VBG HCO3 VBG O2 Saturation VBG Base Excess Barometric Pressure POC Sodium Sodium 144 POC Potassium Potassium 4.1 POC Chloride Chloride 110 H Carbon Dioxide 22 POC Total CO2 Anion Gap 12.0 H POC Anion Gap POC BUN BUN 60 H Creatinine 3.23 H POC Creatinine Est Cr Clr Drug Dosing 22.5 Est GFR ( Amer) 20.6 Est GFR (Non-Af Amer) 17.8 BUN/Creatinine Ratio 18.6 Glucose 109 H POC Glucose (other) POC Lactic Acid Nito Calcium 8.9 POC Ioniz Calcium Doris Magnesium 2.3 Total Bilirubin 1.2 H AST 98 H ALT 52 Alkaline Phosphatase 106 Total Creatine Kinase 1530 H CK-MB (CK-2) 19.7 H CK/CKMB % Calc 1.3 Troponin I 1.110 H* C-Reactive Protein 39.30 H NT-Pro-B Natriuret Pep > 96373 H Total Protein 7.0 Albumin 2.4 L Globulin 4.6 H Albumin/Globulin Ratio 0.5 L Amylase 26 Lipase 85 Procalcitonin Urine Color Urine Appearance Urine pH Ur Specific [place] Urine Protein Urine Glucose (UA) Urine Ketones Urine Blood Urine Nitrite Urine Bilirubin Urine Urobilinogen Ur Leukocyte Esterase Urine WBC (Auto) Urine RBC (Auto) U Hyaline Cast (Auto) U Epithel Cells (Auto) Urine Bacteria (Auto) Urine Yeast Stl C. diff Tox B Gene 10/10/18 10/10/18 10/10/18 14:25 14:25 14:25 WBC RBC Hgb POC Hgb Hct POC Hct MCV MCH MCHC RDW Std Deviation RDW Coeff of Jumana Plt Count MPV Immature Gran % (Auto) Neut % (Auto) Lymph % (Auto) [place] % (Auto) Eos % (Auto) Baso % (Auto) Immature Gran # (Auto) Neut # (Auto) Lymph # (Auto) [place] # (Auto) Eos # (Auto) Baso # (Auto) Platelet Estimate ESR 35 H PT INR APTT PTT Ratio VBG pH VBG pCO2 VBG pO2 VBG HCO3 VBG O2 Saturation VBG Base Excess Barometric Pressure POC Sodium Sodium POC Potassium Potassium POC Chloride Chloride Carbon Dioxide POC Total CO2 Anion Gap POC Anion Gap POC BUN BUN Creatinine POC Creatinine Est Cr Clr Drug Dosing Est GFR ( Amer) Est GFR (Non-Af Amer) BUN/Creatinine Ratio Glucose POC Glucose (other) POC Lactic Acid Nito Calcium POC Ioniz Calcium Doris Magnesium Cancelled Total Bilirubin AST ALT Alkaline Phosphatase Total Creatine Kinase CK-MB (CK-2) Cancelled CK/CKMB % Calc Cancelled Troponin I Cancelled C-Reactive Protein Cancelled NT-Pro-B Natriuret Pep Cancelled Total Protein Albumin Globulin Albumin/Globulin Ratio Amylase Cancelled Lipase Cancelled Procalcitonin 14.92 H Urine Color Urine Appearance Urine pH Ur Specific [place] Urine Protein Urine Glucose (UA) Urine Ketones Urine Blood Urine Nitrite Urine Bilirubin Urine Urobilinogen Ur Leukocyte Esterase Urine WBC (Auto) Urine RBC (Auto) U Hyaline Cast (Auto) U Epithel Cells (Auto) Urine Bacteria (Auto) Urine Yeast Stl C. diff Tox B Gene 10/10/18 10/10/18 10/10/18 14:25 14:25 14:33 WBC RBC Hgb POC Hgb 17.3 Hct POC Hct 51 MCV MCH MCHC RDW Std Deviation RDW Coeff of Jumana Plt Count MPV Immature Gran % (Auto) Neut % (Auto) Lymph % (Auto) [place] % (Auto) Eos % (Auto) Baso % (Auto) Immature Gran # (Auto) Neut # (Auto) Lymph # (Auto) [place] # (Auto) Eos # (Auto) Baso # (Auto) Platelet Estimate ESR PT INR APTT PTT Ratio VBG pH VBG pCO2 VBG pO2 VBG HCO3 VBG O2 Saturation VBG Base Excess Barometric Pressure POC Sodium 147 H Sodium POC Potassium 4.0 Potassium POC Chloride 107 Chloride Carbon Dioxide POC Total CO2 22 L Anion Gap POC Anion Gap 23.0 POC BUN 56 H BUN Creatinine POC Creatinine 2.9 H Est Cr Clr Drug Dosing Est GFR ( Amer) Est GFR (Non-Af Amer) BUN/Creatinine Ratio Glucose POC Glucose (other) 114 H POC Lactic Acid Nito 3.75 H Calcium POC Ioniz Calcium Doris 1.20 Magnesium Total Bilirubin AST ALT Alkaline Phosphatase Total Creatine Kinase Cancelled CK-MB (CK-2) CK/CKMB % Calc Troponin I C-Reactive Protein NT-Pro-B Natriuret Pep Total Protein Albumin Globulin Albumin/Globulin Ratio Amylase Lipase Procalcitonin Urine Color Urine Appearance Urine pH Ur Specific [place] Urine Protein Urine Glucose (UA) Urine Ketones Urine Blood Urine Nitrite Urine Bilirubin Urine Urobilinogen Ur Leukocyte Esterase Urine WBC (Auto) Urine RBC (Auto) U Hyaline Cast (Auto) U Epithel Cells (Auto) Urine Bacteria (Auto) Urine Yeast Stl C. diff Tox B Gene 10/10/18 10/10/18 10/10/18 14:37 14:40 19:12 WBC RBC Hgb POC Hgb Hct POC Hct MCV MCH MCHC RDW Std Deviation RDW Coeff of Jumana Plt Count MPV Immature Gran % (Auto) Neut % (Auto) Lymph % (Auto) [place] % (Auto) Eos % (Auto) Baso % (Auto) Immature Gran # (Auto) Neut # (Auto) Lymph # (Auto) [place] # (Auto) Eos # (Auto) Baso # (Auto) Platelet Estimate ESR PT INR APTT PTT Ratio VBG pH 7.31 L VBG pCO2 47 VBG pO2 34 VBG HCO3 23 VBG O2 Saturation 62.4 VBG Base Excess -3.4 Barometric Pressure 741.9 POC Sodium Sodium POC Potassium Potassium POC Chloride Chloride Carbon Dioxide POC Total CO2 Anion Gap POC Anion Gap POC BUN BUN Creatinine POC Creatinine Est Cr Clr Drug Dosing Est GFR ( Amer) Est GFR (Non-Af Amer) BUN/Creatinine Ratio Glucose POC Glucose (other) POC Lactic Acid Nito Calcium POC Ioniz Calcium Doris Magnesium Total Bilirubin AST ALT Alkaline Phosphatase Total Creatine Kinase CK-MB (CK-2) CK/CKMB % Calc Troponin I 2.360 H* C-Reactive Protein NT-Pro-B Natriuret Pep Total Protein Albumin Globulin Albumin/Globulin Ratio Amylase Lipase Procalcitonin Urine Color Dark Yellow Urine Appearance Turbid H Urine pH 5.0 Ur Specific [place] 1.017 Urine Protein 3+ H Urine Glucose (UA) Negative Urine Ketones Negative Urine Blood 3+ H Urine Nitrite Negative Urine Bilirubin Negative Urine Urobilinogen Negative Ur Leukocyte Esterase 3+ H Urine WBC (Auto) >30 H Urine RBC (Auto) 5-10 H U Hyaline Cast (Auto) 1-5 U Epithel Cells (Auto) 5-10 H Urine Bacteria (Auto) 3+ H Urine Yeast Not Reportable Stl C. diff Tox B Gene 10/11/18 10/11/18 10/11/18 01:04 01:25 03:53 WBC 12.97 H RBC 4.67 L Hgb 14.0 D POC Hgb Hct 41.1 L POC Hct MCV 88.0 MCH 30.0 MCHC 34.1 RDW Std Deviation 49.5 H RDW Coeff of Jumana 15.6 H Plt Count 82 L MPV 12.3 H Immature Gran % (Auto) Neut % (Auto) Lymph % (Auto) [place] % (Auto) Eos % (Auto) Baso % (Auto) Immature Gran # (Auto) Neut # (Auto) Lymph # (Auto) [place] # (Auto) Eos # (Auto) Baso # (Auto) Platelet Estimate ESR PT INR APTT PTT Ratio VBG pH VBG pCO2 VBG pO2 VBG HCO3 VBG O2 Saturation VBG Base Excess Barometric Pressure POC Sodium Sodium POC Potassium Potassium POC Chloride Chloride Carbon Dioxide POC Total CO2 Anion Gap POC Anion Gap POC BUN BUN Creatinine POC Creatinine Est Cr Clr Drug Dosing Est GFR ( Amer) Est GFR (Non-Af Amer) BUN/Creatinine Ratio Glucose POC Glucose (other) POC Lactic Acid Nito Calcium POC Ioniz Calcium Doris Magnesium Total Bilirubin AST ALT Alkaline Phosphatase Total Creatine Kinase CK-MB (CK-2) CK/CKMB % Calc Troponin I 3.970 H* C-Reactive Protein NT-Pro-B Natriuret Pep Total Protein Albumin Globulin Albumin/Globulin Ratio Amylase Lipase Procalcitonin Urine Color Urine Appearance Urine pH Ur Specific [place] Urine Protein Urine Glucose (UA) Urine Ketones Urine Blood Urine Nitrite Urine Bilirubin Urine Urobilinogen Ur Leukocyte Esterase Urine WBC (Auto) Urine RBC (Auto) U Hyaline Cast (Auto) U Epithel Cells (Auto) Urine Bacteria (Auto) Urine Yeast Stl C. diff Tox B Gene Neg C.diff Toxin B 10/11/18 10/11/18 03:53 03:53 WBC RBC Hgb POC Hgb Hct POC Hct MCV MCH MCHC RDW Std Deviation RDW Coeff of Jumana Plt Count MPV Immature Gran % (Auto) Neut % (Auto) Lymph % (Auto) [place] % (Auto) Eos % (Auto) Baso % (Auto) Immature Gran # (Auto) Neut # (Auto) Lymph # (Auto) [place] # (Auto) Eos # (Auto) Baso # (Auto) Platelet Estimate ESR PT INR APTT 129.8 H* PTT Ratio 5.0 VBG pH VBG pCO2 VBG pO2 VBG HCO3 VBG O2 Saturation VBG Base Excess Barometric Pressure POC Sodium Sodium 146 H POC Potassium Potassium 3.7 POC Chloride Chloride 115 H Carbon Dioxide 22 POC Total CO2 Anion Gap 9.0 POC Anion Gap POC BUN BUN 64 H Creatinine 2.93 H D POC Creatinine Est Cr Clr Drug Dosing 25.0 Est GFR ( Amer) 23.2 Est GFR (Non-Af Amer) 20.0 BUN/Creatinine Ratio 21.8 H Glucose 138 H POC Glucose (other) POC Lactic Acid Nito Calcium 8.1 L POC Ioniz Calcium Doris Magnesium 2.1 Total Bilirubin AST ALT Alkaline Phosphatase Total Creatine Kinase CK-MB (CK-2) CK/CKMB % Calc Troponin I C-Reactive Protein NT-Pro-B Natriuret Pep Total Protein Albumin Globulin Albumin/Globulin Ratio Amylase Lipase Procalcitonin Urine Color Urine Appearance Urine pH Ur Specific [place] Urine Protein Urine Glucose (UA) Urine Ketones Urine Blood Urine Nitrite Urine Bilirubin Urine Urobilinogen Ur Leukocyte Esterase Urine WBC (Auto) Urine RBC (Auto) U Hyaline Cast (Auto) U Epithel Cells (Auto) Urine Bacteria (Auto) Urine Yeast Stl C. diff Tox B Gene
[2018-10-11] MEDS ORDERED: MENTHOL-ZINC OXIDE 360 APPLN/120 GM TUBE EXT SCH (09:30)
[2018-10-11] MEDS ORDERED: MENTHOL-ZINC OXIDE 360 APPLN/120 GM TUBE EXT ONE (09:45)
[2018-10-11] MEDS: ASPIRIN 81 MG ECTAB PO SCH (11:50)
[2018-10-11 12:31] LABS: Partial Thromboplastin Ratio 2.2
--- NOTE | 2018-10-11 12:36 | Consultation Report ---
DATE OF CONSULTATION: 10/11/2018 HISTORY OF PRESENT ILLNESS: A 77-year-old male seen at bedside due to multiple hyperkeratosis dorsal feet and elongated nails. The patient notes he lives at home alone, was admitted for rehydration and followup as he fell and was unable to get up due to weakness 5 days ago, found to have acute kidney injury secondary to p.o. intake while he was unable to move. The patient notes he has difficulty getting to his feet and has been quite some time since he has had any type of foot care. He had no history of previous foot problems. PAST MEDICAL HISTORY: Diabetes mellitus, pulmonary edema, status post fall, pneumonia, UTI, recent acute kidney injury secondary to p.o. intake per chart. MEDICATIONS: Per chart. ALLERGIES: No known drug allergies. LOWER EXTREMITY VASCULAR: DP and PT nonpalpable secondary to pitting edema, bilateral lower extremities. Digital hair is absent. DERMATOLOGIC: Nails are gryphotic, circular and approximately 20 mm with curling and multiple layers of subungual debris throughout both feet 1 through 5 bilaterally. Dorsal aspect of the foot is a pre-ulcerative area with severe hyperkeratosis and fissuring pre-ulcerative secondary to the amount of keratin buildup dorsally. NEUROLOGIC: Epicritic sensation grossly absent. MUSCULOSKELETAL: Collapsing calcaneal valgus foot type bilaterally. IMPRESSION: 1. Diabetes mellitus 2. Fields grade 0 pre-ulcerative area, dorsal foot bilaterally secondary to severe hyperkeratosis. 3. Painful onychomycosis and onychogryphosis secondary to neglect. PLAN: 1. Debrided the pre-ulcerative area through #12 blade and tissue nippers to a level of partial thickness dorsal aspect of the foot. Recommended Neosporin ointment without dressing with dry sock twice daily. 2. Recommend heel precautions. 3. Debridement of mycotic nails through #12 blade and nail milk powder grinder to a level of tolerance. 4. Continued diabetic precautions. 5. Recommended sooner diabetic palliative footcare for the patient as needed every 2-3 months. Thank you for allowing me to participate in the care of this patient. Reconsult if needed.
[2018-10-11 12:44] LABS: Partial Thromboplastin Time 56.6 Seconds (21.0-31.0)
[2018-10-11] MEDS: NEOMYCIN/POLYMYX/BACITR OINT 15 GM TUBE EXT SCH ×2 (13:42→20:17)
--- NOTE | 2018-10-11 14:20 | Pharmacy Report ---
Pharmacy Abx Initial Consult - Date of Service October 11, 2018 - Pharmacy Dosing Scope Date of Consult: 10/11 Consultation requested by: Dr. Rock Pharmacy is consulted to initiate vancomycin IV dosing therapy, order appropriate labs and adjust drug dose/frequency. - Subjective The patient is a 77 year old M admitted on 10/10/18 15:59. - Objective Height: 5 ft 8 in Weight: 100 kg Vital Signs (Past 12hrs): Vital Signs Temp Pulse Pulse Resp BP BP Pulse Ox 10/11/18 11:48 37.1 C 101 H 18 173/84 H 96 10/11/18 08:37 36.5 C 99 H 20 151/92 H 96 10/11/18 03:33 37.2 C 100 H 16 148/78 H 98 Lab Results (24hrs): Laboratory Tests (24 Hours) 10/11/18 10/11/18 10/10/18 03:53 03:53 14:25 WBC 12.97 H Neut # (Auto) ESR Creatinine 2.93 H D Est Cr Clr Drug Dosing 25.0 Total Creatine Kinase Cancelled C-Reactive Protein Procalcitonin 10/10/18 10/10/18 10/10/18 14:25 14:25 14:25 WBC Neut # (Auto) ESR 35 H Creatinine Est Cr Clr Drug Dosing Total Creatine Kinase C-Reactive Protein Cancelled Procalcitonin 14.92 H 10/10/18 10/10/18 14:25 14:25 WBC 12.49 H Neut # (Auto) 12.05 H ESR Creatinine 3.23 H Est Cr Clr Drug Dosing 22.5 Total Creatine Kinase 1530 H C-Reactive Protein 39.30 H Procalcitonin Micro Results: Microbiology 10/10/18 14:40 Urine,Clean Catch Urine Culture - Preliminary Gram negative bacilli Gram negative bacilli#2 10/10/18 14:25 Blood Blood Culture - Preliminary Gram positive cocci 10/10/18 14:20 Blood Blood Culture - Preliminary Gram positive cocci - Assessment & Plan Assessment 77 year old M admitted after being down x 5 days s/p fall. Blood cultures are positive for gram positive cocci and there is concern for aspiration pneumonia as well as UTI. Vancomycin initiated for the positive blood cultures - of note , lab did not run a PRC since the GPC is in chains. Unasyn initiated for the aspiration pneumonia and possible UTI. Patient also with TERE and SCr has improved just slightly from admission (3.2 -> 2.9) so will need to be cautious with vancomycin dosing Plan Vancomycin IV * Estimated PK Parameters: Vd 0.65 L/kg, Yang 0.025 hr-1, t1/2 27.7 hr * Loading dose: 1750 mg (17.5 mg/kg) was given overnight * Maintenance dose: 1500 mg IV (15 mg/kg) every 30 hours - this will be started @ 1800 today b/c patient was not given a full loading dose * Goal trough level for bacteremia : 15 to 20 mcg/mL * Trough level will most likely be ordered prior to the 3rd dose but will evaluate SCr tomorrow prior to ordering this Unasyn * Not being dosed per pharmacy but dosing is appropriate * Since there is now GNB in the urine, may want to consider changing this to a more susceptible antibiotic or wait until cultures are resulted if patient clinically doing better Pharmacy will continue to follow and will adjust dose/frequency as necessary. Thank you.
[2018-10-11] MEDS: SODIUM CHLORIDE 0.9% 1000ML 1,000 ML IV SCH (14:22)
--- NOTE | 2018-10-11 16:19 | Cardiology Consultation ---
Date of Consultation October 11, 2018 Assessment & Plan (1) Elevated troponin: He has a troponin that is mildly elevated and rising, most recently just over 3. He does not complain of chest discomfort, his electrocardiogram does not show an acute cardiac event. An echocardiogram is pending, but I would be very reluctant to consider invasive evaluation anytime in the near future. We should continue to follow his troponin measurements, and his electrocardiograms and keep him on telemetry. (2) Pulmonary edema: He has evidence of pulmonary edema with a high proBNP, chest x-ray findings and exam findings as well as anasarca. His pulmonary edema may be a consequence of total volume overload, however will need to evaluate his left ventricular function which we can get from the echocardiogram. Further recommendations to follow, in the meantime we need to try to diuresis. History of Present Illness Attending Physician: Mahendra Neal History of Present Illness This is a 77-year-old male who was brought in from home after evidently laying on the floor for 5 days. He is not clear why that happened, apparently his neighbors heard him yelling and then he was brought into the emergency room. He tells me that he does not see physicians and we do not have records, he is very vague about his history. He seems to be unaware that he has significant edema, and he cannot describe why he fell or why he could not get up. He does not have any heart disease that he is aware of, was not taking any medications at home and tells me that he does not have any illnesses requiring him to see physicians. Here he was found to be in acute renal failure, he now has positive blood cultures at he has positive cardiac enzymes From the cardiovascular standpoint he denies loss of consciousness even though he was found on the floor, he denies lightheadedness or dizziness, denies chest discomfort or palpitations. Allergies Allergy/AdvReac Type Severity Reaction Status Date / Time No Known Allergies Allergy Unverified 10/10/18 14:52 Home Medications Home Medications Medication Instructions Recorded Confirmed Type No Known Home Medications 10/10/18 10/10/18 History Patient History Medical History Diabetes mellitus (Chronic) Family History Mother Heart attack Social History Current Living Situation: Alone Other Information That Helps Us Care for You: No Feels Safe at Home: Declines to Answer Safety Concerns: Feels Safe At This Time Smoking Status: Former smoker Hx Alcohol Use: No Hx Substance Use: No Beliefs That Will Affect Care: None Communication Ability: Effective Review of Systems Negative for lightheadedness, dizziness, palpitations, presyncope or syncope despite being found on the floor and unable to get up. No exertional symptoms, no dyspnea on exertion or exertional chest pain. No orthopnea or PND or peripheral edema. No GI complaints, no bleeding. No neurologic complaints such as TIA or stroke symptoms. Other systems negative. Physical Exam 2 Vital Signs (Past 24 Hours): Last Vital Signs Temp 36.9 C 10/11/18 15:29 Pulse 100 H 10/11/18 15:29 Resp 16 10/11/18 15:29 BP 157/83 H 10/11/18 15:29 Pulse Ox 90 10/11/18 15:29 Physical Exam: Constitutional: Alert, cooperative and in no distress. HEENT: Unremarkable Neck: No jugular venous distention, carotid pulses are normal and equal bilaterally without bruits. Pulmonary: Bilateral crackles on auscultation bilaterally. Cardiac: Regular rhythm with no murmur, gallop or rub. Abdomen: Soft, nontender with normal bowel sounds. Extremities: +2 bilateral pretibial edema, significant edema of the left arm. Distal pulses intact. Neurologic: No focal findings. Skin: He has a rash on his lower extremities and his left arm, no ecchymoses or petechiae. Results & Data Diagnostic Findings Telemetry: Sinus rhythm, no significant arrhythmia Electrocardiogram: Sinus rhythm, nonspecific ST-T abnormalities Echo: Pending
[2018-10-11] MEDS ORDERED: FUROSEMIDE 60 MG in SYRINGE 0 ML IV ONE (17:15)
[2018-10-11] MEDS: HEPARIN STANDARD DEXTROSE 25,000 UNITS/500 ML IV SCH (17:45)
[2018-10-11] MEDS ORDERED: VANCOMYCIN HCL 1,500 MG in SODIUM CHLORIDE 0.9% 500 ML IV SCH (18:00)
[2018-10-12] MEDS: SODIUM CHLORIDE 0.9% 1000ML 1,000 ML IV SCH (03:08)
[2018-10-12] MEDS: AMPICILLIN/SULBACTAM SOD 3,000 MG in 0.9 % SODIUM CHLORIDE 100 ML IV SCH ×2 (04:50→18:01)
[2018-10-12 05:07] LABS: Partial Thromboplastin Ratio 2.1
[2018-10-12 05:12] LABS: Creatinine Clr Calc Pharmacy 26.5 ml/min; Est GFR (African American) 26.3; Est GFR (Non-African American) 22.7
[2018-10-12 05:32] LABS: Partial Thromboplastin Time 54.1 Seconds (21.0-31.0)
[2018-10-12] MEDS: NEOMYCIN/POLYMYX/BACITR OINT 15 GM TUBE EXT SCH ×2 (07:48→20:36)
[2018-10-12] MEDS: ASPIRIN 81 MG ECTAB PO SCH (07:48)
--- NOTE | 2018-10-12 08:55 | Hospitalist Progress Note ---
Date of Service October 11, 2018 Assessment & Plan (1) TERE (acute kidney injury): Patient has hyronephrosis. Likely multifactorial with hydronephrosis and fluid overload with patient likely having component of CHF. Will place patient on diuretics. Awaiting echo cardiogram. - Gentle IV fluids for now. Will likely stop in AM. - If Cr improving now that he has a Moreno in and is being moved, no need for nephrology consult (2) Hydronephrosis: CT a/p on 10/10 showed moderate left hydroureteronephrosis with dilatation of the left ureter to the level of the bladder. Unclear cause, though possibly due to being down on the left side? - Urology consult Appreciate input. (3) Fall: Patient seems very casual about falling and not being able to get up for 5 days. Prior to the fall, he tells me that he did fine on his own and had no issues with mobility. - PT/OT consults - CM for hopeful placement (4) Pulmonary edema: Imaging (CT chest and CT a/p on 10/10) shows signs of volume overload. BNP is off chart. Patient was in respiratory distress on admission, but did well on BiPap. Patient denies any history of heart disease, CHF, or other heart issues. - Echo - Gentle diuresis (giving with some gentle IV fluids to help flush kidney even though rhabdo is mild) - I&Os, weights - Monitor volume status As stated above, will start IV diuretics and check his labs in the AM. (5) Elevated troponin: Initial troponin of 1.1 without patient endorsing any chest pain. No EKG on our system. - Stat EKG - troponin is elevated at 3. will continue to trend. Patient is on heparin drip. - Start ASA 81mg - Echo as above (6) Pneumonia: CT chest on 10/10 showed extensive, bilateral pneumonia. Procalcitonin was elevated to 15 on admission. Patient choked on water with the RN, making aspiration a concern. - Unasyn with renal-dosing - Low concern for atypicals, so will hold off on azithromycin - Aspiration precautions - [employer] evaluation ordered/ (7) UTI (urinary tract infection): UA on 10/10 showed evidence of infection. - Unasyn as above for pneumonia - Follow up urine culture (8) Dystrophic nail: Toes on both legs are overgrown, and there is keratinization advancing up the dorsum of the foot. - Podiatry consult completed. Appreciate input (9) DVT prophylaxis: Heparin BID Spent 35 minutes in management of patient. Subjective Patient reports feeling fatigued and weak. Patient appears distraught, however, he sttaes that he is fine. He understands he is in the hospital and is oriented 3. Patient reports that he continues to require oxygen today. He does not know why he fell. He reports being somewhat dehydrated. Constitutional: no sweats Eyes: no blind spots and no diplopia Ear, Nose, Mouth, Throat: no ear trauma Respiratory: + dyspnea; no change in sputum Cardiovascular: + dyspnea; no chest pain Musculoskeletal: no back pain Integumentary: no acne Neurologic: no falls Psychiatric: no hopelessness Endocrine: + fatigue Physical Exam 2 Vital Signs (Past 24 Hours): Last Vital Signs Temp 36.5 C 10/11/18 08:37 Pulse 99 H 10/11/18 08:37 Resp 20 10/11/18 08:37 BP 151/92 10/11/18 08:37 Pulse Ox 96 10/11/18 08:37 Physical Exam: Constitutional: WD/WN, vitals as above Eyes: EOM intact bilaterally; no conjunctival abnormality ENMT: external ear and nose normal, oropharynx normal Neck: trachea midline, no thyromegaly normal visual inspection Respiratory: normal respiratory effort, rales heard at bases, no respiratory distress Cardiovascular: RRR, no murmur, no edema Gastrointestinal (Abdomen): Inspection/Auscultation: abdomen normal to inspection; abdomen not distended Musculoskeletal: no cyanosis or clubbing, extremities motor strength 5/5 Skin: + erythema (Along much of his left side), + nails discolored and + nails dystrophic (With keratanization up to mid dorsum of foot) Neurologic: moves all extremities and awake Psychiatric: Orientation: alert, oriented to person and cooperative
--- NOTE | 2018-10-12 09:08 | Urology Progress Note ---
Date of Service October 12, 2018 Assessment & Plan (1) UTI (urinary tract infection): UC&S prelim +ecoli, sensitive to unasyn. Recommend conversion to PO, treat based upon sensitivities for 10-14d BC prelim positive. Significant pelvic/scrotal edema, elevation ordered. (2) Urinary retention: UO adequate at this time, draining clear yellow. (3) Hydronephrosis: Cr slowly improving. Denies renal colic, afebrile. No indication for ureteral stenting at this time. He will likely benefit from outpatient cystoscopy once recovered from acute illness. CT imaging reveals extremely enlarged prostate vs organized blood clot vs other abnormal bladder pathology. Thank you for allowing us to participate in the acute care of Mr. Arana. We will continue to monitor with primary service. Please seea additional comments per my attending physician, if indicated. Agree with above plan Subjective Pt reports feeling better today. More conversive and appropriate. Offers no new complaints or concerns from standpoint. Tolerating PO diet. Moreno catheter intact, draining well. Tolerating catheter well, denies suprapubic, abdominal or flank pain. Review of Systems All systems reviewed & are unremarkable except as noted in HPI & below Physical Exam 2 Vital Signs (Past 24 Hours): Last Vital Signs Temp 36.5 C 10/12/18 07:45 Pulse 99 H 10/12/18 07:45 Resp 20 10/12/18 07:45 BP 158/101 H 10/12/18 07:48 Pulse Ox 95 10/12/18 07:45 Physical Exam: Alert and oriented to self and place. RRR, NC intact. Abd soft, some edema. Moderate generalized, dependent pelvic and scrotal edema. Minimal weeping. : catheter draining clear yellow. Results & Data Laboratory Results Laboratory Results - last 48 hr 10/10/18 10/10/18 10/10/18 14:25 14:25 14:25 WBC 12.49 H RBC 5.62 Hgb 17.5 POC Hgb Hct 50.3 POC Hct MCV 89.5 MCH 31.1 MCHC 34.8 RDW Std Deviation 51.4 H RDW Coeff of Jumana 15.9 H Plt Count 96 L MPV 12.0 H Immature Gran % (Auto) 0.5 Neut % (Auto) 96.4 Lymph % (Auto) 1.3 [place] % (Auto) 1.8 Eos % (Auto) 0.0 Baso % (Auto) 0.0 Immature Gran # (Auto) 0.06 H Neut # (Auto) 12.05 H Lymph # (Auto) 0.16 L [place] # (Auto) 0.22 Eos # (Auto) 0.00 Baso # (Auto) 0.00 Platelet Estimate Decreased ESR PT 12.9 H INR 1.3 H APTT 26.3 PTT Ratio 1.0 VBG pH VBG pCO2 VBG pO2 VBG HCO3 VBG O2 Saturation VBG Base Excess Barometric Pressure POC Sodium Sodium 144 POC Potassium Potassium 4.1 POC Chloride Chloride 110 H Carbon Dioxide 22 POC Total CO2 Anion Gap 12.0 H POC Anion Gap POC BUN BUN 60 H Creatinine 3.23 H POC Creatinine Est Cr Clr Drug Dosing 22.5 Est GFR ( Amer) 20.6 Est GFR (Non-Af Amer) 17.8 BUN/Creatinine Ratio 18.6 Glucose 109 H POC Glucose (other) POC Lactic Acid Nito Calcium 8.9 POC Ioniz Calcium Doris Magnesium 2.3 Total Bilirubin 1.2 H AST 98 H ALT 52 Alkaline Phosphatase 106 Total Creatine Kinase 1530 H CK-MB (CK-2) 19.7 H CK/CKMB % Calc 1.3 Troponin I 1.110 H* C-Reactive Protein 39.30 H NT-Pro-B Natriuret Pep > 28857 H Total Protein 7.0 Albumin 2.4 L Globulin 4.6 H Albumin/Globulin Ratio 0.5 L Amylase 26 Lipase 85 Procalcitonin Urine Color Urine Appearance Urine pH Ur Specific [place] Urine Protein Urine Glucose (UA) Urine Ketones Urine Blood Urine Nitrite Urine Bilirubin Urine Urobilinogen Ur Leukocyte Esterase Urine WBC (Auto) Urine RBC (Auto) U Hyaline Cast (Auto) U Epithel Cells (Auto) Urine Bacteria (Auto) Urine Yeast Stl C. diff Tox B Gene 10/10/18 10/10/18 10/10/18 14:25 14:25 14:25 WBC RBC Hgb POC Hgb Hct POC Hct MCV MCH MCHC RDW Std Deviation RDW Coeff of Jumana Plt Count MPV Immature Gran % (Auto) Neut % (Auto) Lymph % (Auto) [place] % (Auto) Eos % (Auto) Baso % (Auto) Immature Gran # (Auto) Neut # (Auto) Lymph # (Auto) [place] # (Auto) Eos # (Auto) Baso # (Auto) Platelet Estimate ESR 35 H PT INR APTT PTT Ratio VBG pH VBG pCO2 VBG pO2 VBG HCO3 VBG O2 Saturation VBG Base Excess Barometric Pressure POC Sodium Sodium POC Potassium Potassium POC Chloride Chloride Carbon Dioxide POC Total CO2 Anion Gap POC Anion Gap POC BUN BUN Creatinine POC Creatinine Est Cr Clr Drug Dosing Est GFR ( Amer) Est GFR (Non-Af Amer) BUN/Creatinine Ratio Glucose POC Glucose (other) POC Lactic Acid Nito Calcium POC Ioniz Calcium Doris Magnesium Cancelled Total Bilirubin AST ALT Alkaline Phosphatase Total Creatine Kinase CK-MB (CK-2) Cancelled CK/CKMB % Calc Cancelled Troponin I Cancelled C-Reactive Protein Cancelled NT-Pro-B Natriuret Pep Cancelled Total Protein Albumin Globulin Albumin/Globulin Ratio Amylase Cancelled Lipase Cancelled Procalcitonin 14.92 H Urine Color Urine Appearance Urine pH Ur Specific [place] Urine Protein Urine Glucose (UA) Urine Ketones Urine Blood Urine Nitrite Urine Bilirubin Urine Urobilinogen Ur Leukocyte Esterase Urine WBC (Auto) Urine RBC (Auto) U Hyaline Cast (Auto) U Epithel Cells (Auto) Urine Bacteria (Auto) Urine Yeast Stl C. diff Tox B Gene 10/10/18 10/10/18 10/10/18 14:25 14:25 14:33 WBC RBC Hgb POC Hgb 17.3 Hct POC Hct 51 MCV MCH MCHC RDW Std Deviation RDW Coeff of Jumana Plt Count MPV Immature Gran % (Auto) Neut % (Auto) Lymph % (Auto) [place] % (Auto) Eos % (Auto) Baso % (Auto) Immature Gran # (Auto) Neut # (Auto) Lymph # (Auto) [place] # (Auto) Eos # (Auto) Baso # (Auto) Platelet Estimate ESR PT INR APTT PTT Ratio VBG pH VBG pCO2 VBG pO2 VBG HCO3 VBG O2 Saturation VBG Base Excess Barometric Pressure POC Sodium 147 H Sodium POC Potassium 4.0 Potassium POC Chloride 107 Chloride Carbon Dioxide POC Total CO2 22 L Anion Gap POC Anion Gap 23.0 POC BUN 56 H BUN Creatinine POC Creatinine 2.9 H Est Cr Clr Drug Dosing Est GFR ( Amer) Est GFR (Non-Af Amer) BUN/Creatinine Ratio Glucose POC Glucose (other) 114 H POC Lactic Acid Nito 3.75 H Calcium POC Ioniz Calcium Doris 1.20 Magnesium Total Bilirubin AST ALT Alkaline Phosphatase Total Creatine Kinase Cancelled CK-MB (CK-2) CK/CKMB % Calc Troponin I C-Reactive Protein NT-Pro-B Natriuret Pep Total Protein Albumin Globulin Albumin/Globulin Ratio Amylase Lipase Procalcitonin Urine Color Urine Appearance Urine pH Ur Specific [place] Urine Protein Urine Glucose (UA) Urine Ketones Urine Blood Urine Nitrite Urine Bilirubin Urine Urobilinogen Ur Leukocyte Esterase Urine WBC (Auto) Urine RBC (Auto) U Hyaline Cast (Auto) U Epithel Cells (Auto) Urine Bacteria (Auto) Urine Yeast Stl C. diff Tox B Gene 10/10/18 10/10/18 10/10/18 14:37 14:40 19:12 WBC RBC Hgb POC Hgb Hct POC Hct MCV MCH MCHC RDW Std Deviation RDW Coeff of Jumana Plt Count MPV Immature Gran % (Auto) Neut % (Auto) Lymph % (Auto) [place] % (Auto) Eos % (Auto) Baso % (Auto) Immature Gran # (Auto) Neut # (Auto) Lymph # (Auto) [place] # (Auto) Eos # (Auto) Baso # (Auto) Platelet Estimate ESR PT INR APTT PTT Ratio VBG pH 7.31 L VBG pCO2 47 VBG pO2 34 VBG HCO3 23 VBG O2 Saturation 62.4 VBG Base Excess -3.4 Barometric Pressure 741.9 POC Sodium Sodium POC Potassium Potassium POC Chloride Chloride Carbon Dioxide POC Total CO2 Anion Gap POC Anion Gap POC BUN BUN Creatinine POC Creatinine Est Cr Clr Drug Dosing Est GFR ( Amer) Est GFR (Non-Af Amer) BUN/Creatinine Ratio Glucose POC Glucose (other) POC Lactic Acid Nito Calcium POC Ioniz Calcium Doris Magnesium Total Bilirubin AST ALT Alkaline Phosphatase Total Creatine Kinase CK-MB (CK-2) CK/CKMB % Calc Troponin I 2.360 H* C-Reactive Protein NT-Pro-B Natriuret Pep Total Protein Albumin Globulin Albumin/Globulin Ratio Amylase Lipase Procalcitonin Urine Color Dark Yellow Urine Appearance Turbid H Urine pH 5.0 Ur Specific [place] 1.017 Urine Protein 3+ H Urine Glucose (UA) Negative Urine Ketones Negative Urine Blood 3+ H Urine Nitrite Negative Urine Bilirubin Negative Urine Urobilinogen Negative Ur Leukocyte Esterase 3+ H Urine WBC (Auto) >30 H Urine RBC (Auto) 5-10 H U Hyaline Cast (Auto) 1-5 U Epithel Cells (Auto) 5-10 H Urine Bacteria (Auto) 3+ H Urine Yeast Not Reportable Stl C. diff Tox B Gene 10/11/18 10/11/18 10/11/18 01:04 01:25 03:53 WBC 12.97 H RBC 4.67 L Hgb 14.0 D POC Hgb Hct 41.1 L POC Hct MCV 88.0 MCH 30.0 MCHC 34.1 RDW Std Deviation 49.5 H RDW Coeff of Jumana 15.6 H Plt Count 82 L MPV 12.3 H Immature Gran % (Auto) Neut % (Auto) Lymph % (Auto) [place] % (Auto) Eos % (Auto) Baso % (Auto) Immature Gran # (Auto) Neut # (Auto) Lymph # (Auto) [place] # (Auto) Eos # (Auto) Baso # (Auto) Platelet Estimate ESR PT INR APTT PTT Ratio VBG pH VBG pCO2 VBG pO2 VBG HCO3 VBG O2 Saturation VBG Base Excess Barometric Pressure POC Sodium Sodium POC Potassium Potassium POC Chloride Chloride Carbon Dioxide POC Total CO2 Anion Gap POC Anion Gap POC BUN BUN Creatinine POC Creatinine Est Cr Clr Drug Dosing Est GFR ( Amer) Est GFR (Non-Af Amer) BUN/Creatinine Ratio Glucose POC Glucose (other) POC Lactic Acid Nito Calcium POC Ioniz Calcium Doris Magnesium Total Bilirubin AST ALT Alkaline Phosphatase Total Creatine Kinase CK-MB (CK-2) CK/CKMB % Calc Troponin I 3.970 H* C-Reactive Protein NT-Pro-B Natriuret Pep Total Protein Albumin Globulin Albumin/Globulin Ratio Amylase Lipase Procalcitonin Urine Color Urine Appearance Urine pH Ur Specific [place] Urine Protein Urine Glucose (UA) Urine Ketones Urine Blood Urine Nitrite Urine Bilirubin Urine Urobilinogen Ur Leukocyte Esterase Urine WBC (Auto) Urine RBC (Auto) U Hyaline Cast (Auto) U Epithel Cells (Auto) Urine Bacteria (Auto) Urine Yeast Stl C. diff Tox B Gene Neg C.diff Toxin B 10/11/18 10/11/18 10/11/18 03:53 03:53 11:59 WBC RBC Hgb POC Hgb Hct POC Hct MCV MCH MCHC RDW Std Deviation RDW Coeff of Jumana Plt Count MPV Immature Gran % (Auto) Neut % (Auto) Lymph % (Auto) [place] % (Auto) Eos % (Auto) Baso % (Auto) Immature Gran # (Auto) Neut # (Auto) Lymph # (Auto) [place] # (Auto) Eos # (Auto) Baso # (Auto) Platelet Estimate ESR PT INR APTT 129.8 H* 56.6 H* PTT Ratio 5.0 2.2 VBG pH VBG pCO2 VBG pO2 VBG HCO3 VBG O2 Saturation VBG Base Excess Barometric Pressure POC Sodium Sodium 146 H POC Potassium Potassium 3.7 POC Chloride Chloride 115 H Carbon Dioxide 22 POC Total CO2 Anion Gap 9.0 POC Anion Gap POC BUN BUN 64 H Creatinine 2.93 H D POC Creatinine Est Cr Clr Drug Dosing 25.0 Est GFR ( Amer) 23.2 Est GFR (Non-Af Amer) 20.0 BUN/Creatinine Ratio 21.8 H Glucose 138 H POC Glucose (other) POC Lactic Acid Nito Calcium 8.1 L POC Ioniz Calcium Doris Magnesium 2.1 Total Bilirubin AST ALT Alkaline Phosphatase Total Creatine Kinase CK-MB (CK-2) CK/CKMB % Calc Troponin I C-Reactive Protein NT-Pro-B Natriuret Pep Total Protein Albumin Globulin Albumin/Globulin Ratio Amylase Lipase Procalcitonin Urine Color Urine Appearance Urine pH Ur Specific [place] Urine Protein Urine Glucose (UA) Urine Ketones Urine Blood Urine Nitrite Urine Bilirubin Urine Urobilinogen Ur Leukocyte Esterase Urine WBC (Auto) Urine RBC (Auto) U Hyaline Cast (Auto) U Epithel Cells (Auto) Urine Bacteria (Auto) Urine Yeast Stl C. diff Tox B Gene 10/12/18 10/12/18 04:35 04:35 WBC RBC Hgb POC Hgb Hct POC Hct MCV MCH MCHC RDW Std Deviation RDW Coeff of Jumana Plt Count MPV Immature Gran % (Auto) Neut % (Auto) Lymph % (Auto) [place] % (Auto) Eos % (Auto) Baso % (Auto) Immature Gran # (Auto) Neut # (Auto) Lymph # (Auto) [place] # (Auto) Eos # (Auto) Baso # (Auto) Platelet Estimate ESR PT INR APTT 54.1 H* PTT Ratio 2.1 VBG pH VBG pCO2 VBG pO2 VBG HCO3 VBG O2 Saturation VBG Base Excess Barometric Pressure POC Sodium Sodium POC Potassium Potassium POC Chloride Chloride Carbon Dioxide POC Total CO2 Anion Gap POC Anion Gap POC BUN BUN Creatinine 2.64 H POC Creatinine Est Cr Clr Drug Dosing 26.5 Est GFR ( Amer) 26.3 Est GFR (Non-Af Amer) 22.7 BUN/Creatinine Ratio Glucose POC Glucose (other) POC Lactic Acid Nito Calcium POC Ioniz Calcium Doris Magnesium Total Bilirubin AST ALT Alkaline Phosphatase Total Creatine Kinase CK-MB (CK-2) CK/CKMB % Calc Troponin I C-Reactive Protein NT-Pro-B Natriuret Pep Total Protein Albumin Globulin Albumin/Globulin Ratio Amylase Lipase Procalcitonin Urine Color Urine Appearance Urine pH Ur Specific [place] Urine Protein Urine Glucose (UA) Urine Ketones Urine Blood Urine Nitrite Urine Bilirubin Urine Urobilinogen Ur Leukocyte Esterase Urine WBC (Auto) Urine RBC (Auto) U Hyaline Cast (Auto) U Epithel Cells (Auto) Urine Bacteria (Auto) Urine Yeast Stl C. diff Tox B Gene
[2018-10-12] MEDS ORDERED: POTASSIUM CHLORIDE 10 MEQ TABCR PO STA (09:11)
[2018-10-12 10:20] LABS: BUN Creatinine Ratio 22.7 (10-20); Calcium 7.7 mg/dl (8.5-10.1); Creatinine Clr Calc Pharmacy 25.9 ml/min; Est GFR (African American) 25.6; Est GFR (Non-African American) 22.1; Potassium 3.1 mmol/L (3.5-5.1)
[2018-10-12 10:26] LABS: Phosphorus 3.3 mg/dl (2.5-4.9)
--- NOTE | 2018-10-12 12:58 | Cardiology Progress Note ---
Date of Service October 12, 2018 Assessment & Plan (1) Elevated troponin: He has a troponin that is mildly elevated and is now falling, peak just over 3. He does not complain of chest discomfort, his electrocardiogram does not show an acute cardiac event. An echocardiogram shows severe global hypokinesis consistent with a nonischemic cardiomyopathy not ischemic heart disease. (2) Pulmonary edema: He has evidence of pulmonary edema with a high proBNP, chest x-ray findings and exam findings as well as anasarca. His pulmonary edema may be a consequence of total volume overload, however he does have severe left ventricular dysfunction. Further recommendations to follow, in the meantime we need to try to diuresis. (3) Cardiomyopathy: He has severe left ventricular dysfunction, I do not know how long he has had this. It is conceivable that is related to his acute presentation and may correct quickly. He did make low-grade enzymes but does not have an acute infarction pattern. This may or may not indicate that he has coronary artery disease. We will need to figure out whether he has coronary artery disease or not (catheterization versus stress testing) at some point, but I would not do that this week as he has other issues. I would recommend adding a beta-rebekah , continuing diuresis and see if we can correct his other issues. I will add low-dose carvedilol as he is also hypertensive. Subjective He seems to be feeling well, he has no specific complaints Physical Exam 2 Vital Signs (Past 24 Hours): Last Vital Signs Temp 36.8 C 10/12/18 11:29 Pulse 102 H 10/12/18 11:29 Resp 20 10/12/18 11:29 BP 158/96 H 10/12/18 11:29 Pulse Ox 95 10/12/18 11:29 Physical Exam: Constitutional: Alert, cooperative and in no distress. HEENT: Unremarkable other than very poor dentition Neck: No jugular venous distention, carotid pulses are normal and equal bilaterally without bruits. Pulmonary: Bilateral crackles on auscultation. Cardiac: Regular rhythm with no murmur, gallop or rub. Abdomen: Soft, nontender with normal bowel sounds. Extremities: +2 bilateral pretibial edema, significant edema of the left arm. Distal pulses intact. Neurologic: No focal findings. Skin: He has a rash on his lower extremities and his left arm, no ecchymoses or petechiae. Results & Data Diagnostic Findings Echocardiography: Severe left ventricular dysfunction without wall motion abnormalities. Telemetry: Sinus rhythm, PAT and one 14 beat run of nonsustained ventricular tachycardia overnight
[2018-10-12] MEDS: HEPARIN STANDARD DEXTROSE 25,000 UNITS/500 ML IV SCH (14:47)
[2018-10-12] MEDS: CARVEDILOL 6.25 MG TAB PO SCH (20:36)
[2018-10-13] MEDS: AMPICILLIN/SULBACTAM SOD 3,000 MG in 0.9 % SODIUM CHLORIDE 100 ML IV SCH ×2 (04:58→17:14)
[2018-10-13 05:11] LABS: Partial Thromboplastin Ratio 2.1
[2018-10-13 05:16] LABS: Partial Thromboplastin Time 55.1 Seconds (21.0-31.0)
[2018-10-13 05:17] LABS: Creatinine Clr Calc Pharmacy 32.1 ml/min; Est GFR (African American) 33.1; Est GFR (Non-African American) 28.6
[2018-10-13 05:21] LABS: Prostate Specific Antigen 7.71 ng/ml (0-4)
[2018-10-13] MEDS: ASPIRIN 81 MG ECTAB PO SCH (08:40)
[2018-10-13] MEDS: CARVEDILOL 6.25 MG TAB PO SCH ×2 (08:40→21:18)
[2018-10-13] MEDS: NEOMYCIN/POLYMYX/BACITR OINT 15 GM TUBE EXT SCH ×2 (08:40→21:18)
--- NOTE | 2018-10-13 09:41 | Cardiology Progress Note ---
Date of Service October 13, 2018 Assessment & Plan (1) Elevated troponin: He has a troponin that was mildly elevated, peak just over 3. He does not complain of chest discomfort, his electrocardiogram does not show an acute cardiac event. An echocardiogram shows severe global hypokinesis consistent with a nonischemic cardiomyopathy not ischemic heart disease. (2) Pulmonary edema: He had evidence of pulmonary edema with a high proBNP, chest x-ray findings and exam findings as well as anasarca. His pulmonary edema may be a consequence of total volume overload, however he does have severe left ventricular dysfunction. His creatinine has improved substantially and I would minimize fluids as I believe you are. I would try to create a negative fluid balance as soon as possible, he has many liters of fluid in excess. (3) Cardiomyopathy: He had severe left ventricular dysfunction on echocardiography, I do not know how long he has had this. It is conceivable that is related to his acute presentation and may correct quickly. He did make low-grade enzymes but does not have an acute infarction pattern. This may or may not indicate that he has coronary artery disease. We will need to figure out whether he has coronary artery disease or not (catheterization versus stress testing) at some point, but I would not do that this week as he has other issues. I would recommend increasing his beta-rebekah (I started carvedilol yesterday and will increase today), diuresis and see if we can correct his other issues. I am going to repeat his echo as a limited to evaluate his left ventricular function in the near future but have not scheduled that as yet. Subjective He appears to be feeling well, he is resting in bed, he does not complain of shortness of breath or chest discomfort. He has not tried to get out of bed yet. Physical Exam 2 Vital Signs (Past 24 Hours): Last Vital Signs Temp 36.7 C 10/13/18 07:03 Pulse 77 10/13/18 08:00 Resp 19 10/13/18 07:03 BP 120/71 10/13/18 07:03 Pulse Ox 94 10/13/18 07:03 Physical Exam: Constitutional: Alert, cooperative and in no distress. Pulmonary: Decreased breath sounds at bases bilaterally. Cardiac: Regular rhythm with no murmur, gallop or rub. Abdomen: Soft, nontender with normal bowel sounds. Extremities: +3 bilateral pitting pretibial edema. Results & Data Diagnostic Findings Telemetry: Sinus rhythm, 70-80 bpm
--- NOTE | 2018-10-13 11:13 | Hospitalist Progress Note ---
Date of Service October 12, 2018 Assessment & Plan (1) TERE (acute kidney injury): Patient has hyronephrosis. Likely multifactorial with hydronephrosis and fluid overload with patient likely having component of CHF. Will place patient on diuretics. Echo cardiogram shows signifcant aucte on chronic heart failure. IVF are stopped, cr is improving on diuretcs. will continue. (2) Hydronephrosis: CT a/p on 10/10 showed moderate left hydroureteronephrosis with dilatation of the left ureter to the level of the bladder. Unclear cause, though possibly due to being down on the left side? - Urology consult Appreciate input. (3) Fall: Patient seems very casual about falling and not being able to get up for 5 days. Prior to the fall, he tells me that he did fine on his own and had no issues with mobility. - PT/OT consults - CM for hopeful placement (4) Pulmonary edema: Imaging (CT chest and CT a/p on 10/10) shows signs of volume overload. BNP is off chart. Patient was in respiratory distress on admission, but did well on BiPap. Patient denies any history of heart disease, CHF, or other heart issues. - Echo - Gentle diuresis (giving with some gentle IV fluids to help flush kidney even though rhabdo is mild) - I&Os, weights - Monitor volume status As stated above, will continue IV diuretics and check his labs in the AM. creat is 2.7 on 10/12 (5) Elevated troponin: Initial troponin of 1.1 without patient endorsing any chest pain. No EKG on our system. - Stat EKG - troponin is elevated at 3. will continue to trend. Patient is on heparin drip. Cardio does not believe this to be ischemic, will monitor - Start ASA 81mg - Echo as above (6) Pneumonia: CT chest on 10/10 showed extensive, bilateral pneumonia. Procalcitonin was elevated to 15 on admission. Patient choked on water with the RN, making aspiration a concern. - Unasyn with renal-dosing - Low concern for atypicals, so will hold off on azithromycin - Aspiration precautions - EMAIL MARKETER evaluation ordered/ (7) UTI (urinary tract infection): UA on 10/10 showed evidence of infection. - Unasyn as above for pneumonia - Follow up urine culture (8) Dystrophic nail: Toes on both legs are overgrown, and there is keratinization advancing up the dorsum of the foot. - Podiatry consult completed. Appreciate input (9) DVT prophylaxis: Heparin BID Spent 35 minutes in management of patient. Subjective Patient reports no new symptoms today. He continues to feel week He understands he is in the hospital and is oriented x3. Patient is now off oxygen. He does not know why he fell. Respiratory: + dyspnea; no change in sputum Cardiovascular: + dyspnea; no chest pain Endocrine: + fatigue Physical Exam 2 Vital Signs (Past 24 Hours): Last Vital Signs Temp 36.8 C L 10/12/18 11:29 Pulse 102 10/12/18 11:29 Resp 20 10/12/18 11:29 BP 158/96 H 10/12/18 11:29 Pulse Ox 95 10/12/18 11:29 Physical Exam: Constitutional: WD/WN, vitals as above Eyes: EOM intact bilaterally; no conjunctival abnormality ENMT: external ear and nose normal, oropharynx normal Neck: trachea midline, no thyromegaly normal visual inspection Respiratory: normal respiratory effort, rales heard at bases, no respiratory distress Cardiovascular: RRR, no murmur, no edema Gastrointestinal (Abdomen): Inspection/Auscultation: abdomen normal to inspection; abdomen not distended Musculoskeletal: no cyanosis or clubbing, extremities motor strength 5/5 Skin: + erythema (Along much of his left side), + nails discolored and + nails dystrophic (With keratanization up to mid dorsum of foot) Neurologic: moves all extremities and awake Psychiatric: Orientation: alert, oriented to person and cooperative
[2018-10-13] MEDS: CARVEDILOL 3.125 MG TAB PO SCH ×2 (12:59→21:17)
[2018-10-13] MEDS: HEPARIN STANDARD DEXTROSE 25,000 UNITS/500 ML IV SCH (13:02)
--- NOTE | 2018-10-13 15:57 | Urology Progress Note ---
Date of Service October 13, 2018 Assessment & Plan (1) Hydronephrosis: (2) UTI (urinary tract infection): (3) Urinary retention: UR associated with TERE, hydronephrosis, UTI: Cr improved from 2.7 to 2.18 today with adequate UO PSA 7.71, slightly elevated for his age. Afebrile, VSS UC&S grew out pansensitive E.Coli - Recommend conversion to PO, treat based upon sensitivities for 10-14d Plan of care: Outpatient cystoscopy with voiding trial to be arranged in approx 2-[address]- Moderate L hydro, likely chronic. Will reimage in 2-3 months. Elevated PSA - will recheck in 2-3 months after acute illness resolves. Thank you for allowing us to participate in the care of Mr. Arana. Please reconsult us with any additional questions, concerns or changes in patient status. Subjective Pt resting at bedside, easily arousable and appropriate. Offers no new complaints or concerns from standpoint. Per nursing, having more difficulty with transfer, generalized deconditioning. Tolerating PO diet. White catheter intact, draining well. No issues with catheter. Denies suprapubic, abdominal or flank pain. Review of Systems All systems reviewed & are unremarkable except as noted in HPI & below Physical Exam 2 Vital Signs (Past 24 Hours): Last Vital Signs Temp 36.7 C 10/13/18 15:02 Pulse 75 10/13/18 15:12 Resp 16 10/13/18 15:02 BP 122/76 10/13/18 15:02 Pulse Ox 96 10/13/18 15:02 Physical Exam: A&Ox3 RRR abd soft : white catheter draining clear yellow Results & Data Laboratory Results Laboratory Results - last 48 hr 10/12/18 10/12/18 10/12/18 04:35 04:35 Unknown APTT 54.1 H* PTT Ratio 2.1 Sodium 145 Potassium 3.1 L D Chloride 112 H Carbon Dioxide 27 Anion Gap 6.0 BUN 61 H Creatinine 2.64 H 2.70 H Est Cr Clr Drug Dosing 26.5 25.9 Est GFR ( Amer) 26.3 25.6 Est GFR (Non-Af Amer) 22.7 22.1 BUN/Creatinine Ratio 22.7 H Glucose 215 H Calcium 7.7 L Phosphorus 3.3 Magnesium 2.0 Troponin I 2.000 H* Prostate Specific Ag 10/13/18 10/13/18 04:39 04:39 APTT 55.1 H* PTT Ratio 2.1 Sodium Potassium Chloride Carbon Dioxide Anion Gap BUN Creatinine 2.18 H D Est Cr Clr Drug Dosing 32.1 Est GFR ( Amer) 33.1 Est GFR (Non-Af Amer) 28.6 BUN/Creatinine Ratio Glucose Calcium Phosphorus Magnesium Troponin I Prostate Specific Ag 7.710 H
[2018-10-13] MEDS: HEPARIN SOD 5,000 UNIT/0.5 ML VIAL SQ SCH (21:18)
--- NOTE | 2018-10-13 22:59 | Hospitalist Progress Note ---
Date of Service October 13, 2018 Assessment & Plan (1) TERE (acute kidney injury): Patient has hyronephrosis. Likely multifactorial with hydronephrosis and fluid overload with patient likely having component of CHF. Will place patient on diuretics. Echo cardiogram shows signifcant aucte on chronic heart failure. IVF are stopped, cr is improving on diuretcs. will continue. Creat is now 2.1 (2) Hydronephrosis: CT a/p on 10/10 showed moderate left hydroureteronephrosis with dilatation of the left ureter to the level of the bladder. Unclear cause, though possibly due to being down on the left side? - Urology consult Appreciate input. (3) Fall: Patient seems very casual about falling and not being able to get up for 5 days. Prior to the fall, he tells me that he did fine on his own and had no issues with mobility. - PT/OT consults - CM for hopeful placement (4) Pulmonary edema: Imaging (CT chest and CT a/p on 10/10) shows signs of volume overload. BNP is off chart. Patient was in respiratory distress on admission, but did well on BiPap. Patient denies any history of heart disease, CHF, or other heart issues. - Echo - Gentle diuresis (giving with some gentle IV fluids to help flush kidney even though rhabdo is mild) - I&Os, weights - Monitor volume status As stated above, will continue IV diuretics and check his labs in the AM. creat is 2.1 on 10/13 (5) Elevated troponin: Initial troponin of 1.1 without patient endorsing any chest pain. No EKG on our system. - Stat EKG - troponin peaked at 3.9 d. Patient is off heparin drip. Cardio does not believe this to be ischemic, will monitor - Start ASA 81mg - Echo as above (6) Pneumonia: CT chest on 10/10 showed extensive, bilateral pneumonia. Procalcitonin was elevated to 15 on admission. Patient choked on water with the RN, making aspiration a concern. - Unasyn with renal-dosing - Low concern for atypicals, so will hold off on azithromycin - Aspiration precautions - TREE TOPPER evaluation ordered/ (7) UTI (urinary tract infection): UA on 10/10 showed evidence of infection. - Unasyn as above for pneumonia - Follow up urine culture (8) Dystrophic nail: Toes on both legs are overgrown, and there is keratinization advancing up the dorsum of the foot. - Podiatry consult completed. Appreciate input (9) DVT prophylaxis: Heparin BID Spent 25 minutes in management of patient. Subjective Patient reports no new symptoms today. He continues to feel weak, however he reports improvement with his breathing and swelling. Patient remains off oxygen. He does not know why he fell. Respiratory: + dyspnea; no change in sputum Cardiovascular: + dyspnea; no chest pain Endocrine: + fatigue Physical Exam 2 Vital Signs (Past 24 Hours): Last Vital Signs Temp 36.4 C L 10/13/18 18:54 Pulse 74 10/13/18 18:54 Resp 16 10/13/18 18:54 BP 125/75 10/13/18 18:54 Pulse Ox 97 10/13/18 18:54 Physical Exam: Constitutional: WD/WN, vitals as above Eyes: EOM intact bilaterally; no conjunctival abnormality ENMT: external ear and nose normal, oropharynx normal Neck: trachea midline, no thyromegaly normal visual inspection Respiratory: normal respiratory effort, rales heard at bases, no respiratory distress Cardiovascular: RRR, no murmur, no edema Gastrointestinal (Abdomen): Inspection/Auscultation: abdomen normal to inspection; abdomen not distended Musculoskeletal: no cyanosis or clubbing, extremities motor strength 5/5 Skin: + erythema (Along much of his left side), + nails discolored and + nails dystrophic (With keratanization up to mid dorsum of foot) Neurologic: moves all extremities and awake Psychiatric: Orientation: alert, oriented to person and cooperative
[2018-10-14] MEDS: AMPICILLIN/SULBACTAM SOD 3,000 MG in 0.9 % SODIUM CHLORIDE 100 ML IV SCH ×2 (05:38→17:00)
[2018-10-14 06:51] LABS: Partial Thromboplastin Time 26.3 Seconds (21.0-31.0)
[2018-10-14 07:12] LABS: Creatinine Clr Calc Pharmacy 33.2 ml/min; Est GFR (African American) 34.1; Est GFR (Non-African American) 29.4
[2018-10-14] MEDS: CARVEDILOL 3.125 MG TAB PO SCH (08:26)
[2018-10-14] MEDS: HEPARIN SOD 5,000 UNIT/0.5 ML VIAL SQ SCH ×2 (08:26→21:49)
[2018-10-14] MEDS: CARVEDILOL 6.25 MG TAB PO SCH (08:27)
[2018-10-14] MEDS: ASPIRIN 81 MG ECTAB PO SCH (08:27)
[2018-10-14] MEDS: NEOMYCIN/POLYMYX/BACITR OINT 15 GM TUBE EXT SCH ×2 (08:27→21:50)
--- NOTE | 2018-10-14 09:37 | Cardiology Progress Note ---
Date of Service October 14, 2018 Assessment & Plan (1) Elevated troponin: He has a troponin that was mildly elevated, peak just over 3. He does not complain of chest discomfort, his electrocardiogram does not show an acute cardiac event. An echocardiogram on admission shows severe global hypokinesis consistent with a nonischemic cardiomyopathy not ischemic heart disease. I would not pursue a coronary evaluation at this time. (2) Pulmonary edema: He had evidence of pulmonary edema with a high proBNP, chest x-ray findings and exam findings as well as anasarca. His pulmonary edema may be a consequence of total volume overload, however he did have severe left ventricular dysfunction. His creatinine has improved substantially (although not normalized) and I would minimize fluids as I believe you are. He has not diuresed much since yesterday, I think at this point we should add diuretics as he still has quite a bit of edema. I would try to create a negative fluid balance as soon as possible, he has many liters of fluid in excess. (3) Cardiomyopathy: He had severe left ventricular dysfunction on echocardiography, I do not know how long he has had this. It is conceivable that is related to his acute presentation and may correct quickly. He did make low-grade enzymes but does not have an acute infarction pattern. This may or may not indicate that he has coronary artery disease. We will need to figure out whether he has coronary artery disease or not (catheterization versus stress testing) at some point, but I would not do that this week as he has other issues. I would recommend increasing his beta-rebekah (I will increase today), diuresis and see if we can correct his other issues. I am going to repeat his echo as a limited tomorrow morning to evaluate his left ventricular function. Subjective He is feeling well today, he has no cardiovascular complaints. He denies chest discomfort or shortness of breath. Physical Exam 2 Vital Signs (Past 24 Hours): Last Vital Signs Temp 36.4 C L 10/14/18 07:46 Pulse 73 10/14/18 07:46 Resp 17 10/14/18 07:46 BP 127/78 10/14/18 07:46 Pulse Ox 97 10/14/18 07:46 Physical Exam: Constitutional: Alert, cooperative and in no distress. Pulmonary: Decreased breath sounds at bases bilaterally. Cardiac: Regular rhythm with no murmur, gallop or rub. Abdomen: Soft, nontender with normal bowel sounds. Extremities: +3 bilateral pitting pretibial edema. Results & Data Diagnostic Findings Telemetry: Sinus rhythm with a PVC, 16 beat run of nonsustained ventricular tachycardia overnight
[2018-10-14 11:24] LABS: Mean Corpuscular Hgb Conc 33.3 g/dL (32-36)
[2018-10-14 11:30] LABS: BUN Creatinine Ratio 23.6 (10-20); Creatinine Clr Calc Pharmacy 33.6 ml/min; Est GFR (African American) 34.6; Est GFR (Non-African American) 29.9; Magnesium 1.7 mg/dl (1.8-2.4)
[2018-10-14 11:44] LABS: Hematocrit (blood only) 41.1 % (42-52); Hemoglobin 13.7 g/dL (14.0-18.0); Mean Corpuscular Volume 88.6 fL (80-100); RDW Coefficient of Variation 15.2 % (11.5-14.5); RDW Standard Deviation 49.4 fL (36.4-46.3); Red Blood Count 4.64 M/uL (4.7-6.1); White Blood Count 6.12 K/uL (4.8-10.8)
[2018-10-14 11:46] LABS: Basophils # (auto) 0.03 K/uL (0-0.2); Basophils % (auto) 0.5 %; Eosinophils # (auto) 0.11 K/uL (0-0.5); Eosinophils % (auto) 1.8 %; Immature Granulocytes # (auto) 0.05 K/uL (0.00-0.02); Immature Granulocytes % (auto) 0.8 %; Lymphocytes # (auto) 0.56 K/uL (1.2-3.4); Lymphocytes % (auto) 9.2 %; Monocytes # (auto) 0.53 K/uL (0.11-0.59); Monocytes % (auto) 8.7 %; Neutrophils # (auto) 4.84 K/uL (1.4-6.5); Platelet Count 80 K/uL (130-400); Platelet Estimate Decreased (Normal); Poikilocytosis Present
[2018-10-14] MEDS ORDERED: POTASSIUM CHLORIDE 10 MEQ TABCR PO STA (12:06)
[2018-10-14] MEDS: FUROSEMIDE 40 MG in SYRINGE 0 ML IV SCH ×2 (12:39→17:00)
[2018-10-14] MEDS ORDERED: ONDANSETRON INJ 2 MG/ML 2 ML VIAL ONE (12:41)
--- NOTE | 2018-10-14 15:07 | Fluoroscopy Report ---
VIDEO SWALLOW STUDY CLINICAL HISTORY: Aspiration. COMPARISON STUDY: No priors. Fluoroscopy time: 2.2 minutes. FINDINGS: Fluoroscopic guidance is provided to the Department of Speech Pathology in performing a vid eo swallow study. The patient consumed barium-impregnated pudding, a cracker with paste, nectar thick liquid, and thin barium, and the swallowing mechanism was observed in real-time. Trace pharyngeal pe netration was observed with thin barium. No aspiration was seen with any of the sampled textures. IMPRESSION: 1. Penetration was seen with thin barium. 2. No aspiration was identified with any of the sampled textures. 3. See dedicated speech pathology report for detailed findings and recommendations. Dictated: 10/14/2018 2:46 PM Transcribed: 10/14/2018 3:07 PM Georgie [id number] [email or web address] Electronically signed by: Ankit Richardson M.D. 10/15/2018 8:38 AM
[2018-10-14] MEDS: POTASSIUM CHLORIDE 10 MEQ TABCR PO SCH (21:49)
[2018-10-14] MEDS: CARVEDILOL 12.5 MG TAB PO SCH (21:50)
--- NOTE | 2018-10-14 22:55 | Hospitalist Progress Note ---
Date of Service October 14, 2018 Assessment & Plan (1) Acute on chronic combined systolic and diastolic congestive heart failure: Patient was found to have above diagnosis from echocardiogram. This is likely explaining why patient is edematous. It is likely that patient had this prior to falling. Patient appears to not follow with a provider for decades. Unsure how long patient has had this problem. (2) TERE (acute kidney injury): Patient has hydronephrosis. Likely multifactorial with hydronephrosis and fluid overload with patient likely having component of CHF. Will continue patient on diuretics (it appears this was not given on 10/12 and ) But he was negative in regards to fluid on the , and tolerating room air on the . Echo cardiogram shows signifcant acute on chronic heart failure. IVF are stopped, cr is improving on diuretcs. will continue. Creat is now 2.1 (3) Hydronephrosis: CT a/p on 10/10 showed moderate left hydroureteronephrosis with dilatation of the left ureter to the level of the bladder. Unclear cause, though possibly due to being down on the left side? - Urology consult Appreciate input. (4) Fall: Patient seems very casual about falling and not being able to get up for 5 days. Prior to the fall, he tells me that he did fine on his own and had no issues with mobility. - PT/OT consults - CM for hopeful placement (5) Pulmonary edema: Imaging (CT chest and CT a/p on 10/10) shows signs of volume overload. BNP is off chart. Patient was in respiratory distress on admission, but did well on BiPap. Patient denies any history of heart disease, CHF, or other heart issues. - Echo - Gentle diuresis (giving with some gentle IV fluids to help flush kidney even though rhabdo is mild) - I&Os, weights - Monitor volume status As stated above, will continue IV diuretics and check his labs in the AM. creat is 2.1 on 10/14 (6) Elevated troponin: Initial troponin of 1.1 without patient endorsing any chest pain. No EKG on our system. - Stat EKG - troponin peaked at 3.9 Patient is off heparin drip. Cardio does not believe this to be ischemic, will monitor - Start ASA 81mg - Echo as above (7) Pneumonia: CT chest on 10/10 showed extensive, bilateral pneumonia. Procalcitonin was elevated to 15 on admission. Patient choked on water with the RN, making aspiration a concern. - Unasyn with renal-dosing - Low concern for atypicals, so will hold off on azithromycin - Aspiration precautions - TRIM MACHINE OPERATOR evaluation ordered/ (8) UTI (urinary tract infection): UA on 10/10 showed evidence of infection. - Unasyn as above for pneumonia - Follow up urine culture (9) Dystrophic nail: Toes on both legs are overgrown, and there is keratinization advancing up the dorsum of the foot. - Podiatry consult completed. Appreciate input (10) Traumatic rhabdomyolysis: Patient had a CK above 1000 on admission. Patient likely had this elevation from lying on the ground for 5 days. The volume overload likely protected him from the myoglobin, and from getting dehydrated. (11) DVT prophylaxis: Heparin BID Spent 25 minutes in management of patient. Subjective Patient reports no new symptoms today. His family was in the room today (brother). He continues to feel weak, however he reports improvement with his breathing and swelling. Patient remains off oxygen. He does not know why he fell. Respiratory: + dyspnea; no change in sputum Cardiovascular: + dyspnea; no chest pain Endocrine: + fatigue Physical Exam 2 Vital Signs (Past 24 Hours): Last Vital Signs Temp 36.4 C L 10/14/18 18:45 Pulse 70 10/14/18 21:30 Resp 20 10/14/18 18:45 BP 127/77 10/14/18 18:45 Pulse Ox 97 10/14/18 18:45 Physical Exam: Constitutional: WD/WN, vitals as above Eyes: EOM intact bilaterally; no conjunctival abnormality ENMT: external ear and nose normal, oropharynx normal Neck: trachea midline, no thyromegaly normal visual inspection Respiratory: normal respiratory effort, rales heard at bases, no respiratory distress Cardiovascular: RRR, no murmur, no edema Gastrointestinal (Abdomen): Inspection/Auscultation: abdomen normal to inspection; abdomen not distended Musculoskeletal: no cyanosis or clubbing, extremities motor strength 5/5 Skin: + erythema (Along much of his left side), + nails discolored and + nails dystrophic (With keratanization up to mid dorsum of foot) Neurologic: moves all extremities and awake Psychiatric: Orientation: alert, oriented to person and cooperative
[2018-10-15] MEDS: AMPICILLIN/SULBACTAM SOD 3,000 MG in 0.9 % SODIUM CHLORIDE 100 ML IV SCH ×2 (05:13→16:24)
[2018-10-15] MEDS ORDERED: PROCHLORPERAZINE 5 MG in SYRINGE 4 ML IV PRN (05:32)
[2018-10-15 07:22] LABS: Est GFR (African American) 32.4; Est GFR (Non-African American) 27.9
[2018-10-15] MEDS: CARVEDILOL 12.5 MG TAB PO SCH ×2 (10:20→20:11)
[2018-10-15] MEDS: HEPARIN SOD 5,000 UNIT/0.5 ML VIAL SQ SCH ×2 (10:21→20:11)
[2018-10-15] MEDS: FUROSEMIDE 40 MG in SYRINGE 0 ML IV SCH ×2 (10:21→16:24)
[2018-10-15] MEDS: NEOMYCIN/POLYMYX/BACITR OINT 15 GM TUBE EXT SCH ×2 (10:22→20:10)
[2018-10-15] MEDS: POTASSIUM CHLORIDE 10 MEQ TABCR PO SCH ×2 (10:22→20:11)
[2018-10-15] MEDS: ASPIRIN 81 MG ECTAB PO SCH (10:22)
[2018-10-15 10:30] LABS: Base Excess VBG 1.6 mEq/L; pH VBG 7.44 (7.36-7.41)
--- NOTE | 2018-10-15 15:36 | Cardiology Progress Note ---
Date of Service October 15, 2018 Assessment & Plan (1) Elevated troponin: He has a troponin that was mildly elevated, peak just over 3. He does not complain of chest discomfort, his electrocardiogram does not show an acute cardiac event. An echocardiogram on admission shows severe global hypokinesis consistent with a nonischemic cardiomyopathy not ischemic heart disease. I would not pursue a coronary evaluation at this time. (2) Pulmonary edema: He had evidence of pulmonary edema with a high proBNP, chest x-ray findings and exam findings as well as anasarca. His pulmonary edema may be a consequence of total volume overload, however he did have severe left ventricular dysfunction. His creatinine has improved substantially (although has not normalized) and I would continue to diurese He has not diuresed much since yesterday and still has quite a bit of edema. (3) Cardiomyopathy: He had severe left ventricular dysfunction on echocardiography, I do not know how long he has had this. It is conceivable that is related to his acute presentation and may correct quickly however a limited echo and follow-up did not show much improvement. He did make low-grade enzymes but does not have an acute infarction pattern. This may or may not indicate that he has coronary artery disease. We will need to figure out whether he has coronary artery disease or not (catheterization versus stress testing) at some point, but I would not do that this week as he has other issues. I would recommend continuing with diuresis and see if we can correct his other issues. Subjective He is feeling fairly well today, he has no specific cardiovascular complaints. He denies chest discomfort or shortness of breath. Physical Exam 2 Vital Signs (Past 24 Hours): Last Vital Signs Temp 36.5 C 10/15/18 15:19 Pulse 68 10/15/18 15:19 Resp 18 10/15/18 15:19 BP 116/73 10/15/18 15:19 Pulse Ox 98 10/15/18 15:19 Physical Exam: Constitutional: Alert, cooperative and in no distress. Pulmonary: Decreased breath sounds at bases bilaterally. Cardiac: Regular rhythm with no murmur, gallop or rub. Abdomen: Soft, nontender with normal bowel sounds. Extremities: +2 bilateral pitting pretibial edema. Results & Data Diagnostic Findings Telemetry: Sinus rhythm in the 70s, no significant arrhythmia in the past 24 hours
[2018-10-16] MEDS: AMPICILLIN/SULBACTAM SOD 3,000 MG in 0.9 % SODIUM CHLORIDE 100 ML IV SCH ×2 (03:57→17:06)
[2018-10-16] MEDS: FUROSEMIDE 40 MG in SYRINGE 0 ML IV SCH ×2 (08:11→17:04)
[2018-10-16] MEDS: CARVEDILOL 12.5 MG TAB PO SCH ×2 (08:11→21:50)
[2018-10-16] MEDS: POTASSIUM CHLORIDE 10 MEQ TABCR PO SCH ×2 (08:12→21:51)
[2018-10-16] MEDS: ASPIRIN 81 MG ECTAB PO SCH (08:12)
[2018-10-16] MEDS: NEOMYCIN/POLYMYX/BACITR OINT 15 GM TUBE EXT SCH ×2 (08:12→21:52)
[2018-10-16] MEDS: HEPARIN SOD 5,000 UNIT/0.5 ML VIAL SQ SCH ×2 (08:12→21:50)
--- NOTE | 2018-10-16 09:34 | Hospitalist Progress Note ---
Date of Service October 15, 2018 Assessment & Plan (1) Acute on chronic combined systolic and diastolic congestive heart failure: Patient was found to have above diagnosis from echocardiogram. This is likely explaining why patient is edematous. It is likely that patient had this prior to falling. Patient appears to not follow with a provider for decades. Unsure how long patient has had this problem. Will continue to actively diurese patient. (2) TERE (acute kidney injury): Patient has hydronephrosis. Likely multifactorial with hydronephrosis and fluid overload with patient likely having component of CHF. Will continue patient on diuretics (it appears this was not given on 10/12 and ) But he was negative in regards to fluid on the , and tolerating room air on the . Echo cardiogram shows significant acute on chronic heart failure. IVF are stopped, cr is improving on diuretcs. will continue. Creat is now 2.22 (3) Hydronephrosis: CT a/p on 10/10 showed moderate left hydroureteronephrosis with dilatation of the left ureter to the level of the bladder. Unclear cause, though possibly due to being down on the left side? - Urology consult Appreciate input. (4) Fall: Patient seems very casual about falling and not being able to get up for 5 days. Prior to the fall, he tells me that he did fine on his own and had no issues with mobility. - PT/OT consults - CM for hopeful placement (5) Pulmonary edema: Imaging (CT chest and CT a/p on 10/10) shows signs of volume overload. BNP is off chart. Patient was in respiratory distress on admission, but did well on BiPap. Patient denies any history of heart disease, CHF, or other heart issues. - Echo - Gentle diuresis (giving with some gentle IV fluids to help flush kidney even though rhabdo is mild) - I&Os, weights - Monitor volume status As stated above, will continue IV diuretics and check his labs in the AM. creat is 2.2 on 10/15 (6) Elevated troponin: Initial troponin of 1.1 without patient endorsing any chest pain. No EKG on our system. - Stat EKG - troponin peaked at 3.9 Patient is off heparin drip. Cardio does not believe this to be ischemic, will monitor - Start ASA 81mg - Echo as above (7) Pneumonia: CT chest on 10/10 showed extensive, bilateral pneumonia. Procalcitonin was elevated to 15 on admission. Patient choked on water with the RN, making aspiration a concern. - Unasyn with renal-dosing - Low concern for atypicals, so will hold off on azithromycin - Aspiration precautions - POWERHOUSE ENGINEER evaluation ordered: no straws. (8) UTI (urinary tract infection): UA on 10/10 showed evidence of infection. - Unasyn as above for pneumonia - Follow up urine culture (9) Dystrophic nail: Toes on both legs are overgrown, and there is keratinization advancing up the dorsum of the foot. - Podiatry consult completed. Appreciate input (10) Traumatic rhabdomyolysis: Patient had a CK above 1000 on admission. Patient likely had this elevation from lying on the ground for 5 days. The volume overload likely protected him from the myoglobin, and from getting dehydrated. (11) DVT prophylaxis: Heparin BID Spent 25 minutes in management of patient. Subjective Patient reports no new symptoms today. He continues to feel weak, however he reports improvement with his breathing and swelling. Patient remains off oxygen. Respiratory: + dyspnea; no change in sputum Cardiovascular: + dyspnea; no chest pain Endocrine: + fatigue Physical Exam 2 Vital Signs (Past 24 Hours): Last Vital Signs Temp 36.3 C L 10/15/18 07:47 Pulse 66 10/15/18 07:47 Resp 18 10/15/18 07:47 BP 108/66 10/15/18 07:47 Pulse Ox 95 10/15/18 07:47 Physical Exam: Constitutional: WD/WN, vitals as above Eyes: EOM intact bilaterally; no conjunctival abnormality ENMT: external ear and nose normal, oropharynx normal Neck: trachea midline, no thyromegaly normal visual inspection Respiratory: normal respiratory effort, rales heard at bases, no respiratory distress Cardiovascular: RRR, no murmur, no edema Gastrointestinal (Abdomen): Inspection/Auscultation: abdomen normal to inspection; abdomen not distended Musculoskeletal: no cyanosis or clubbing, extremities motor strength 5/5 Skin: + nails discolored and + nails dystrophic (With keratanization up to mid dorsum of foot) Neurologic: moves all extremities and awake Psychiatric: Orientation: alert, oriented to person and cooperative
[2018-10-16 09:44] LABS: BUN Creatinine Ratio 21.3 (10-20); Calcium 7.5 mg/dl (8.5-10.1); Creatinine Clr Calc Pharmacy 29.5 ml/min; Est GFR (African American) 29.5; Est GFR (Non-African American) 25.4
--- NOTE | 2018-10-16 10:01 | Hospitalist Progress Note ---
Date of Service October 16, 2018 Assessment & Plan (1) Acute on chronic combined systolic and diastolic congestive heart failure: Patient was found to have above diagnosis from echocardiogram. This is likely explaining why patient is edematous. It is likely that patient had this prior to falling. Patient appears to not follow with a provider for decades. Unsure how long patient has had this problem. Will continue to actively diurese patient. Patient continues to be net positive since admission. (2) TERE (acute kidney injury): Patient has hydronephrosis. Likely multifactorial with hydronephrosis and fluid overload with patient likely having component of CHF. Will continue patient on diuretics (it appears this was not given on 10/12 and ) But he was negative in regards to fluid on the , and tolerating room air on the . Echo cardiogram shows significant acute on chronic heart failure. IVF are stopped, cr is improving on diuretcs. will continue. Creat is now 2.4 Fluid restriction will be ordered. (3) Hydronephrosis: CT a/p on 10/10 showed moderate left hydroureteronephrosis with dilatation of the left ureter to the level of the bladder. Unclear cause, though possibly due to being down on the left side? - Urology consult Appreciate input. (4) Fall: Patient seems very casual about falling and not being able to get up for 5 days. Prior to the fall, he tells me that he did fine on his own and had no issues with mobility. - PT/OT consults - CM for hopeful placement (5) Pulmonary edema: Imaging (CT chest and CT a/p on 10/10) shows signs of volume overload. BNP is off chart. Patient was in respiratory distress on admission, but did well on BiPap. Patient denies any history of heart disease, CHF, or other heart issues. - Echo - Gentle diuresis (giving with some gentle IV fluids to help flush kidney even though rhabdo is mild) - I&Os, weights - Monitor volume status As stated above, will continue IV diuretics and check his labs in the AM. creat is 2.4 on 10/16 (6) Elevated troponin: Initial troponin of 1.1 without patient endorsing any chest pain. No EKG on our system. - Stat EKG - troponin peaked at 3.9 Patient is off heparin drip. Cardio does not believe this to be ischemic, will monitor - Start ASA 81mg - Echo as above (7) Pneumonia: CT chest on 10/10 showed extensive, bilateral pneumonia. Procalcitonin was elevated to 15 on admission. Patient choked on water with the RN, making aspiration a concern. - Unasyn with renal-dosing - Low concern for atypicals, so will hold off on azithromycin - Aspiration precautions - JOB COACH/JOB DEVELOPER evaluation ordered: no straws. (8) UTI (urinary tract infection): UA on 10/10 showed evidence of infection. - Unasyn as above for pneumonia - Follow up urine culture (9) Dystrophic nail: Toes on both legs are overgrown, and there is keratinization advancing up the dorsum of the foot. - Podiatry consult completed. Appreciate input (10) Traumatic rhabdomyolysis: Patient had a CK above 1000 on admission. Patient likely had this elevation from lying on the ground for 5 days. The volume overload likely protected him from the myoglobin, and from getting dehydrated. (11) Bilateral pleural effusion: will repeat x-ray today. Will consider consult with Dr. Montes. (12) DVT prophylaxis: Heparin BID Spent 25 minutes in management of patient. Subjective Patient reports no new symptoms today. D/W nurses, it appears patient is drinking large amount of fluids. Patient is a poor historian, again he states he feels mildy better today, depsite being every edematous. Patient remains off oxygen. Respiratory: + dyspnea; no change in sputum Cardiovascular: + dyspnea; no chest pain Endocrine: + fatigue Physical Exam 2 Vital Signs (Past 24 Hours): Last Vital Signs Temp 36.4 C L 10/16/18 08:24 Pulse 69 10/16/18 08:24 Resp 19 10/16/18 08:24 BP 134/78 10/16/18 08:24 Pulse Ox 95 10/16/18 08:24 Physical Exam: Constitutional: WD/WN, vitals as above Eyes: EOM intact bilaterally; no conjunctival abnormality ENMT: external ear and nose normal, oropharynx normal Neck: trachea midline, no thyromegaly normal visual inspection Respiratory: normal respiratory effort, rales heard at bases, no respiratory distress Cardiovascular: RRR, no murmur, no edema Gastrointestinal (Abdomen): Inspection/Auscultation: abdomen normal to inspection; abdomen not distended Musculoskeletal: no cyanosis or clubbing, extremities motor strength 5/5 Skin: + nails discolored and + nails dystrophic (With keratanization up to mid dorsum of foot) Neurologic: moves all extremities and awake Psychiatric: Orientation: alert, oriented to person and cooperative
--- NOTE | 2018-10-16 10:36 | XRay Report ---
XR chest 2V routine CLINICAL HISTORY: pleural effusion COMPARISON STUDY: Chest radiograph and chest CT October 10, 2018. FINDINGS: Moderate cardiomegaly is noted. There is pulmonary vascular congestion. There are moderate bilateral pleural effusions. There is no pneumothorax. Bibasilar opacities persist. IMPRESSION: 1. Moderate bilateral pleural effusions with persistent bibasilar opacities which may reflect atelect asis or consolidation. 2. Pulmonary vascular congestion. Electronically signed by: Noe Malik M.D. 10/16/2018 10:34 AM
--- NOTE | 2018-10-16 22:31 | Consultation Report ---
DATE OF CONSULTATION: 10/16/2018 REASON FOR CONSULTATION: Bilateral pleural effusions. HISTORY OF PRESENT ILLNESS: Pollo Arana is a 77-year-old male who lives alone who apparently fell at home and was on the floor for several days. His neighbors heard him yelling, he was brought to the Emergency Room. He is a very poor historian. 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 He lives alone and has no children. He did present with a high beta natriuretic peptide and it appears he had not only pulmonary edema, but anasarca. He also had some evidence of myocardial infarction. He apparently has diabetes and also had evidence of renal failure with a creatinine of 3.23 upon arrival. There was some evidence of rhabdomyolysis. At any rate, I was asked to see him today about possibly draining his pleural effusions. The patient has 98% saturations on room air. He is a bit evasive and actually states that he did not want to consider having a thoracentesis today. PAST MEDICAL HISTORY: 1. Apparently diabetes. 2. Diastolic and systolic congestive heart failure. 3. Cardiomyopathy. 4. Urinary retention. 5. Acute pyelonephritis. 6. Acute renal failure. 7. Anasarca. 8. Lower extremity wounds. 9. Hydronephrosis. 10. Urinary tract infection. 11. Acute renal insufficiency. 12. Concussion. 13. Diabetes mellitus. PAST FAMILY MEDICAL HISTORY: The patient's mother apparently from myocardial infarction. He has no children. SOCIAL HISTORY: He apparently did smoke in the past, but not now. The patient lives alone. He is retired from the post office. He is originally from [place], but he lives here in [place] now. He has a very poor support system. MEDICATIONS AT HOME: He denies taking medicines at home. ALLERGIES: No known drug allergies. REVIEW OF SYSTEMS: The patient is a very poor historian. I really have trouble getting anything out of him from a review of systems standpoint. He denies any neurologic events, but did fall. He denies syncope. He states he did fall and was unable to get up. He denies chest pain or palpitations. He denies every system which was asked including GI, , visual and auditory symptoms. He has had no chest pain or palpitations. He does complain of pain in his feet and has onychomycosis and has wounds on his feet. PHYSICAL EXAMINATION: GENERAL: This is an elderly male who appears his stated age of 77. HEENT: His extraocular movements were intact. It looks like he has ecchymosis on the left temporoparietal area. Sclerae are anicteric. His tongue is midline. His speech is clear. NECK: Supple. I do not detect tracheal deviation or jugular venous distention. I do not detect carotid bruits or lymphadenopathy. LUNGS: He has decreased breath sounds on both sides, left greater than right, with a few rhonchi, but no wheezing. HEART: He has a regular rate and rhythm of his heart. ABDOMEN: Obese, soft, nontender. He has got some edema of the lower abdominal wall. NEUROLOGIC: He is awake and alert. He is oriented to place, time, and person. He does exhibit some unusual signs of almost some paranoia asking me why I wanted to know certain information. EXTREMITIES: He does have edema of his lower extremities. He has feet which are fairly warm but I cannot palpate pulses. He has 2+ edema. He has dressings in place. He has evidence of onychomycosis of the nails on both feet. He also had some areas of hyperkeratosis in the dorsal aspect of both feet. He also has calcaneovalgus deformities. ASSESSMENT AND PLAN: Bilateral pleural effusions. I think he would probably benefit from a tap but is hard to justify in a patient with 98% saturation on room air. He was not interested in having anything done at this time. We will continue to follow along. TOBIAS
[2018-10-17] MEDS: AMPICILLIN/SULBACTAM SOD 3,000 MG in 0.9 % SODIUM CHLORIDE 100 ML IV SCH (05:20)
[2018-10-17] MEDS: HEPARIN SOD 5,000 UNIT/0.5 ML VIAL SQ SCH ×2 (08:33→21:32)
[2018-10-17] MEDS: CARVEDILOL 12.5 MG TAB PO SCH ×2 (08:33→21:31)
[2018-10-17] MEDS: ASPIRIN 81 MG ECTAB PO SCH (08:33)
[2018-10-17] MEDS: POTASSIUM CHLORIDE 10 MEQ TABCR PO SCH ×2 (08:33→21:31)
[2018-10-17] MEDS: NEOMYCIN/POLYMYX/BACITR OINT 15 GM TUBE EXT SCH ×2 (08:34→21:32)
[2018-10-17] MEDS: FUROSEMIDE 40 MG in SYRINGE 0 ML IV SCH ×2 (10:52→17:13)
--- NOTE | 2018-10-17 23:40 | Hospitalist Progress Note ---
Date of Service October 17, 2018 Assessment & Plan (1) Acute on chronic combined systolic and diastolic congestive heart failure: Patient was found to have above diagnosis from echocardiogram. This is likely explaining why patient is edematous. It is likely that patient had this prior to falling. Patient appears to not follow with a provider for decades. Unsure how long patient has had this problem. Will continue to actively diurese patient. Patient is finally about neutral net gain since admission. Will cotninue diuretics as above. (2) TERE (acute kidney injury): Patient has hydronephrosis. Likely multifactorial with hydronephrosis and fluid overload with patient likely having component of CHF. Will continue patient on diuretics (it appears this was not given on 10/12 and ) But he was negative in regards to fluid on the , and tolerating room air on the . Echo cardiogram shows significant acute on chronic heart failure. IVF are stopped, cr is improving on diuretcs. will continue. Creat is now 2.4 (10/16) Fluid restriction ordered. (3) Hydronephrosis: CT a/p on 10/10 showed moderate left hydroureteronephrosis with dilatation of the left ureter to the level of the bladder. Unclear cause, though possibly due to being down on the left side? - Urology consult Appreciate input. (4) Fall: Patient seems very casual about falling and not being able to get up for 5 days. Prior to the fall, he tells me that he did fine on his own and had no issues with mobility. - PT/OT consults - CM for hopeful placement (5) Pulmonary edema: Imaging (CT chest and CT a/p on 10/10) shows signs of volume overload. BNP is off chart. Patient was in respiratory distress on admission, but did well on BiPap. Patient denies any history of heart disease, CHF, or other heart issues. - Echo - Gentle diuresis (giving with some gentle IV fluids to help flush kidney even though rhabdo is mild) - I&Os, weights - Monitor volume status As stated above, will continue IV diuretics and check his labs in the AM. creat is 2.4 on 10/16 (6) Elevated troponin: Initial troponin of 1.1 without patient endorsing any chest pain. No EKG on our system. - Stat EKG - troponin peaked at 3.9 Patient is off heparin drip. Cardio does not believe this to be ischemic, will monitor - Start ASA 81mg - Echo as above (7) Pneumonia: CT chest on 10/10 showed extensive, bilateral pneumonia. Procalcitonin was elevated to 15 on admission. Patient choked on water with the RN, making aspiration a concern. - Unasyn with renal-dosing - Low concern for atypicals, so will hold off on azithromycin - Aspiration precautions - TERMINAL OPERATIONS MANAGER evaluation ordered: no straws. (8) UTI (urinary tract infection): UA on 10/10 showed evidence of infection. - Unasyn as above for pneumonia - Follow up urine culture (9) Dystrophic nail: Toes on both legs are overgrown, and there is keratinization advancing up the dorsum of the foot. - Podiatry consult completed. Appreciate input (10) Traumatic rhabdomyolysis: Patient had a CK above 1000 on admission. Patient likely had this elevation from lying on the ground for 5 days. The volume overload likely protected him from the myoglobin, and from getting dehydrated. (11) Bilateral pleural effusion: will repeat x-ray today. consulted Dr. Montes. Patient refuses thoracocenthesis. No urgency as patient is tolerating room air. (12) DVT prophylaxis: Heparin BID Spent 25 minutes in management of patient. Subjective Patient reports no new symptoms today. Patient is a poor historian, again he states he feels mildy better today. His swelling does appear to be lower today. Patient remains off oxygen. Respiratory: + dyspnea; no change in sputum Cardiovascular: + dyspnea; no chest pain Endocrine: + fatigue Physical Exam 2 Vital Signs (Past 24 Hours): Last Vital Signs Temp 36.3 C L 10/17/18 23:32 Pulse 70 10/17/18 23:32 Resp 16 10/17/18 23:32 BP 155/89 H 10/17/18 23:32 Pulse Ox 99 10/17/18 23:32 Physical Exam: Constitutional: WD/WN, vitals as above Eyes: EOM intact bilaterally; no conjunctival abnormality ENMT: external ear and nose normal, oropharynx normal Neck: trachea midline, no thyromegaly normal visual inspection Respiratory: normal respiratory effort, rales heard at bases, no respiratory distress Cardiovascular: RRR, no murmur, no edema Gastrointestinal (Abdomen): Inspection/Auscultation: abdomen normal to inspection; abdomen not distended Musculoskeletal: no cyanosis or clubbing, extremities motor strength 5/5 Skin: + nails discolored and + nails dystrophic (With keratanization up to mid dorsum of foot) Neurologic: moves all extremities and awake, edema in all 4 extremities Psychiatric: Orientation: alert, oriented to person and cooperative
[2018-10-18 06:30] LABS: Basophils # (auto) 0.01 K/uL (0-0.2); Basophils % (auto) 0.1 %; Eosinophils # (auto) 0.35 K/uL (0-0.5); Eosinophils % (auto) 4.1 %; Hematocrit (blood only) 43.4 % (42-52); Hemoglobin 14.6 g/dL (14.0-18.0); Immature Granulocytes # (auto) 0.07 K/uL (0.00-0.02); Immature Granulocytes % (auto) 0.8 %; Lymphocytes # (auto) 0.87 K/uL (1.2-3.4); Lymphocytes % (auto) 10.1 %; Mean Corpuscular Hgb Conc 33.6 g/dL (32-36); Mean Corpuscular Volume 89.3 fL (80-100); Mean Platelet Volume 11.3 fL (7.4-10.4); Monocytes # (auto) 0.34 K/uL (0.11-0.59); Neutrophils # (auto) 6.94 K/uL (1.4-6.5); Neutrophils % (auto) 80.9 %; Platelet Count 187 K/uL (130-400); RDW Coefficient of Variation 15.2 % (11.5-14.5); RDW Standard Deviation 48.3 fL (36.4-46.3); Red Blood Count 4.86 M/uL (4.7-6.1); White Blood Count 8.58 K/uL (4.8-10.8)
[2018-10-18 07:07] LABS: Creatinine Clr Calc Pharmacy 29.5 ml/min; Est GFR (African American) 30.2; Est GFR (Non-African American) 26.1; Potassium 4.4 mmol/L (3.5-5.1)
[2018-10-18] MEDS: CARVEDILOL 12.5 MG TAB PO SCH ×2 (07:57→19:58)
[2018-10-18] MEDS: HEPARIN SOD 5,000 UNIT/0.5 ML VIAL SQ SCH ×2 (07:57→19:59)
[2018-10-18] MEDS: ASPIRIN 81 MG ECTAB PO SCH (07:57)
[2018-10-18] MEDS: FUROSEMIDE 40 MG in SYRINGE 0 ML IV SCH ×2 (07:58→17:05)
[2018-10-18] MEDS: POTASSIUM CHLORIDE 10 MEQ TABCR PO SCH ×2 (07:58→19:59)
[2018-10-18] MEDS: NEOMYCIN/POLYMYX/BACITR OINT 15 GM TUBE EXT SCH (07:59)
--- NOTE | 2018-10-18 10:10 | Cardiology Progress Note ---
Date of Service October 18, 2018 Assessment & Plan (1) Elevated troponin: He has a troponin that was mildly elevated, peak just over 3. He does not complain of chest discomfort, his electrocardiogram does not show an acute cardiac event. An echocardiogram on admission shows severe global hypokinesis consistent with a nonischemic cardiomyopathy not ischemic heart disease. I would not pursue a coronary evaluation at this time. We do need to do something to exclude coronary disease as a cause of his cardiomyopathy but I would wait until he is little bit improved and do a stress test rather than catheterization. (2) Pulmonary edema: He had evidence of pulmonary edema with a high proBNP, chest x-ray findings and exam findings as well as anasarca. His pulmonary edema may be a consequence of total volume overload, however he did have severe left ventricular dysfunction. His creatinine has improved substantially (although has not normalized) and I would continue to diurese He still has quite a bit of edema. (3) Cardiomyopathy: He had severe left ventricular dysfunction on echocardiography, I do not know how long he has had this. It is conceivable that is related to his acute presentation and may correct quickly however a limited echo and follow-up did not show much improvement during this hospitalization. He did make low-grade enzymes but does not have an acute infarction pattern. This may or may not indicate that he has coronary artery disease. We will need to figure out whether he has coronary artery disease or not (catheterization versus stress testing) at some point, but I would not do that just yet as he has other issues. I would recommend continuing with diuresis and see if we can correct his other issues. Subjective He looks and feels better today, he is still complaining of weakness but is sitting at the bedside working with physical therapy. No shortness of breath. Physical Exam 2 Vital Signs (Past 24 Hours): Last Vital Signs Temp 36.4 C L 10/18/18 06:42 Pulse 68 10/18/18 06:42 Resp 17 10/18/18 06:42 BP 149/79 H 10/18/18 06:42 Pulse Ox 94 10/18/18 06:42 Physical Exam: Constitutional: Alert, cooperative and in no distress. Pulmonary: Decreased breath sounds at bases bilaterally. Cardiac: Regular rhythm with no murmur, gallop or rub. Abdomen: Soft, nontender with normal bowel sounds. Extremities: +2 bilateral pitting pretibial edema. Results & Data Diagnostic Findings Telemetry: Sinus rhythm, no significant arrhythmia
--- NOTE | 2018-10-18 19:48 | Hospitalist Progress Note ---
Date of Service October 18, 2018 Assessment & Plan (1) Acute on chronic combined systolic and diastolic congestive heart failure: - Echo - EF 25-30% with severe global hypokinesis; large L pleural effusion - Currently at a negative 1.5 L overall and family reports edema looks improved - Continue Lasix 40 mg IV BID - Cardiology following - appreciate input - no invasive cardiac workup warranted at this time (2) TERE (acute kidney injury): - Likely multifactorial between fluid overload/hydronephrosis - Cr improving now with diuretic therapy - currently at 2.3 - unsure of baseline but making good urine and will continue to monitor (3) Hydronephrosis: - Urology following - plan on treated UTI and outpatient cystoscopy and trial of void in 2-3 weeks (4) Fall: - Was down for about 5 days - PT/OT - planning for rehab at [facility] (5) Elevated troponin: - Troponin peaked at 3.9 and no cardiac symptoms - Was initially treated with heparin gtt but since D/C'd - Continue ASA 81 mg daily Present on Admission?: Yes (6) Pneumonia: - Possible aspiration PNA - procalcitonin 15 on admission - Completed course of Unasyn with renal dosing - PROMOTIONS COORDINATOR following - mild/moderate oropharyngeal dysphagia - mech soft diet/no straws/aspiration precautions/ongoing PROMOTIONS COORDINATOR therapy Present on Admission?: Yes (7) UTI (urinary tract infection): - Pansensitive e. coli - Unasyn therapy completed as above Present on Admission?: Yes (8) Dystrophic nail: - Overgrown toe nails and keratinization into dorsum of the foot - Podiatry consulted and appreciate assistance Present on Admission?: Yes (9) Traumatic rhabdomyolysis: - Patient had a CK above 1000 on admission and was on the ground for 5 days Present on Admission?: Yes (10) Bilateral pleural effusion: - Saturations are adequate on RA and no symptoms reported by patient - CT Surg consulted but patient declined thoracentesis at this time Present on Admission?: Yes (11) DVT prophylaxis: Disposition: Planning on [facility] for rehab. Await continued diuresis and oral regimen and hopeful D/C next 1-2 days Subjective Pt reports feeling well today but continues with diffuse swelling and fatigue/ weakness. States he is eating well and no new complaints. Currently at a negative balance with good urine output. Renal function is slowly improving. Breathing adequately on RA. Constitutional: + fatigue and + weakness; no fever and no chills Respiratory: no cough and no dyspnea Cardiovascular: + edema; no chest pain Gastrointestinal: no abdominal pain, no nausea, no vomiting, no constipation and no diarrhea/loose stools Genitourinary (Male): no dysuria Integumentary: no rash Physical Exam 2 Vital Signs (Past 24 Hours): Last Vital Signs Temp 36.6 C 10/18/18 19:20 Pulse 74 10/18/18 19:20 Resp 18 10/18/18 19:20 BP 154/76 H 10/18/18 19:20 Pulse Ox 98 10/18/18 19:20 Constitutional: + not well developed, + not well nourished, no acute distress and not ill appearing Eyes: sclerae not anicteric ENMT: Ears: no hearing impairment Neck: + trachea not midline Respiratory: normal respiratory effort Auscultation: + crackles (R base) Cardiovascular: Rate/Rhythm: regular rate and regular rhythm Extremities: + edema (anasaca - b/l arms/legs) Gastrointestinal (Abdomen): Inspection/Auscultation: normal bowel sounds Percussion/Palpation: abdomen soft; abdomen nontender Skin: chronic venous stasis changes of b/l legs with toes in dressing Neurologic: moves all extremities Psychiatric: A+Ox3, euthymic affect
[2018-10-19] MEDS: ASPIRIN 81 MG ECTAB PO SCH (08:14)
[2018-10-19] MEDS: POTASSIUM CHLORIDE 10 MEQ TABCR PO SCH ×2 (08:14→20:27)
[2018-10-19] MEDS: HEPARIN SOD 5,000 UNIT/0.5 ML VIAL SQ SCH ×2 (08:14→20:27)
[2018-10-19] MEDS: FUROSEMIDE 40 MG in SYRINGE 0 ML IV SCH ×2 (08:14→17:26)
[2018-10-19] MEDS: CARVEDILOL 12.5 MG TAB PO SCH (08:14)
[2018-10-19 09:05] LABS: Calcium 7.9 mg/dl (8.5-10.1); Creatinine Clr Calc Pharmacy 29.7 ml/min; Est GFR (African American) 30.4; Est GFR (Non-African American) 26.2; Potassium 4.3 mmol/L (3.5-5.1)
--- NOTE | 2018-10-19 09:10 | Cardiology Progress Note ---
Date of Service October 19, 2018 Assessment & Plan (1) Elevated troponin: He has a troponin that was mildly elevated, peak just over 3. He does not complain of chest discomfort, his electrocardiogram does not show an acute cardiac event. An echocardiogram on admission shows severe global hypokinesis consistent with a nonischemic cardiomyopathy not ischemic heart disease. I would not pursue a coronary evaluation at this time. We do need to do something to exclude coronary disease as a cause of his cardiomyopathy but I would wait until he is little bit improved and do a stress test rather than catheterization. (2) Pulmonary edema: He had evidence of pulmonary edema with a high proBNP, chest x-ray findings and exam findings as well as anasarca. His pulmonary edema may be a consequence of total volume overload, however he did have severe left ventricular dysfunction. His creatinine had improved substantially (although has not normalized and may be at baseline now) and I would continue to diurese He still has quite a bit of edema. (3) Cardiomyopathy: He had severe left ventricular dysfunction on echocardiography, I do not know how long he has had this. It is conceivable that is related to his acute presentation and may correct quickly however a limited echo and follow-up did not show much improvement during this hospitalization. He did make low-grade enzymes but does not have an acute infarction pattern. This may or may not indicate that he has coronary artery disease. We will need to figure out whether he has coronary artery disease or not (catheterization versus stress testing) at some point, but I would not do that just yet as he has other issues. I would recommend continuing with diuresis and see if we can correct his other issues. I am going to increase his carvedilol today. (4) Hypertension: His blood pressure has been elevated for several days. It might be appropriate to try an KEON inhibitor however I am concerned about his renal insufficiency, if that worsens we want to know whether it is because of diuresis or the KEON inhibitor. I am therefore going to hold off on that and increase his beta-rebekah. Subjective He feels better now than on admission, however he still complains of weakness and he has not been out of bed much. He denies cardiovascular symptoms. Physical Exam 2 Vital Signs (Past 24 Hours): Last Vital Signs Temp 36.7 C 10/19/18 07:42 Pulse 69 10/19/18 07:42 Resp 20 10/19/18 07:42 BP 154/81 H 10/19/18 07:42 Pulse Ox 94 10/19/18 07:42 Physical Exam: Constitutional: Alert, cooperative and in no distress. Pulmonary: Clear to auscultation bilaterally but decreased breath sounds at bases. Cardiac: Regular rhythm with no murmur, gallop or rub. Abdomen: Soft, nontender with normal bowel sounds. Extremities: +2 pretibial edema remains. Skin: Unchanged rash on legs, ecchymoses or petechiae.
--- NOTE | 2018-10-19 09:27 | XRay Report ---
XR chest 1V portable CLINICAL HISTORY: 77 years-old Male presenting with pleural effusions. TECHNIQUE: Portable upright AP view of the chest was obtained. COMPARISON: 10/16/[address] from 10/10/2018. FINDINGS: Cardiac silhouette enlarged. Pulmonary vascular prominence with bronchial wall thickening. Bibasilar hazy opacities slightly increased from prior. Underlying pleural effusions likely increased. No large pneumothorax. Degenerative changes of the thoracic spine. External leads overlie the upper abdomen d egrading evaluation of this region. Oral contrast suspected in the left colon. IMPRESSION: 1. Cardiomegaly with worsening volume overload/congestive change and suspected mild pulmonary edema. 2. Worsening layering bilateral pleural effusions. Electronically signed by: Edd Sorensen M.D. 10/19/2018 9:26 AM
[2018-10-19] MEDS ORDERED: CARVEDILOL 6.25 MG TAB PO ONE (09:45)
--- NOTE | 2018-10-19 15:35 | Hospitalist Progress Note ---
Date of Service October 19, 2018 Assessment & Plan (1) Acute on chronic combined systolic and diastolic congestive heart failure: - Echo - EF 25-30% with severe global hypokinesis; large L pleural effusion - Currently at a negative 4.7 L overall and family and patient reports edema looks improved -- Has been stable from a pulmonary perspective however CXR shows worsening volume overload/congestive changes however denies symptoms and maintaining appropriate O2 saturations on RA - Continue Lasix 40 mg IV BID and monitor Cr - this has stayed rather stable over the past couple days - Carvedilol was increased to 18.75 mg BID; ASA 81 mg daily - Cardiology following - appreciate input - no invasive cardiac workup warranted at this time (2) TERE (acute kidney injury): - Likely multifactorial between fluid overload/hydronephrosis - Cr improving now with diuretic therapy - currently at 2.3 - unsure of baseline but making good urine and will continue to monitor - Unsure if this could be his baseline? Will get AM labs but still is volume + so maybe will improve some? (3) Hydronephrosis: - Urology following - plan on treated UTI and outpatient cystoscopy and trial of void in 2-3 weeks (4) UTI (urinary tract infection): - Pansensitive e. coli - Unasyn therapy completed as above (5) Bilateral pleural effusion: - Saturations are adequate on RA and no symptoms reported by patient however CXR with worsening findings - CT Surg consulted but patient declined thoracentesis at this time Present on Admission?: Yes (6) Pneumonia: - Possible aspiration PNA - procalcitonin 15 on admission - Completed course of Unasyn with renal dosing - MANAGER BUSINESS INFORMATION following - mild/moderate oropharyngeal dysphagia - [facility] soft diet/no straws/aspiration precautions/ongoing MANAGER BUSINESS INFORMATION therapy Present on Admission?: Yes (7) Fall: - Was down for about 5 days - PT/OT - planning for rehab at [facility] Present on Admission?: Yes (8) Traumatic rhabdomyolysis: - Patient had a CK above 1000 on admission and was on the ground for 5 days Present on Admission?: Yes (9) Elevated troponin: - Troponin peaked at 3.9 and no cardiac symptoms - Was initially treated with heparin gtt but since D/C'd - Continue ASA 81 mg daily Present on Admission?: Yes (10) Dystrophic nail: - Overgrown toe nails and keratinization into dorsum of the foot - Podiatry consulted and appreciate assistance Present on Admission?: Yes (11) DVT prophylaxis: Disposition: Planning on [facility] for rehab. Will watch today due to CXR findings but may be able to convert to orals as it may take several days to completely diurese and given the stability of his pulmonary status Subjective Verbalizes no complaints today. States his breathing continues to feel at baseline however CXR supports worsening volume overload; is at a negative balance Cr remaining stable. Unknown baseline Cr Constitutional: + fatigue and + weakness; no fever and no chills Respiratory: no cough and no dyspnea Cardiovascular: + edema; no chest pain and no orthopnea Gastrointestinal: no abdominal pain, no nausea, no vomiting, no constipation and no diarrhea/loose stools Genitourinary (Male): no dysuria Musculoskeletal: no body aches Endocrine: + fatigue Physical Exam 2 Vital Signs (Past 24 Hours): Last Vital Signs Temp 36.4 C L 10/19/18 15:20 Pulse 71 10/19/18 15:20 Resp 18 10/19/18 15:20 BP 138/80 10/19/18 15:20 Pulse Ox 94 10/19/18 15:20 Constitutional: + not well developed, + not well nourished, no acute distress and not ill appearing Eyes: sclerae not anicteric ENMT: Ears: no hearing impairment Neck: trachea midline Respiratory: normal respiratory effort Auscultation: + crackles (R base) Cardiovascular: Rate/Rhythm: regular rate and regular rhythm Extremities: + edema (anasaca - b/l arms/legs) Gastrointestinal (Abdomen): Inspection/Auscultation: normal bowel sounds Percussion/Palpation: abdomen soft; abdomen nontender Neurologic: moves all extremities Psychiatric: A+Ox3, euthymic affect
[2018-10-19] MEDS: CARVEDILOL 6.25 MG TAB PO SCH (20:27)
[2018-10-20 07:44] LABS: BUN Creatinine Ratio 17.3 (10-20); Calcium 7.9 mg/dl (8.5-10.1); Creatinine Clr Calc Pharmacy 30.2 ml/min; Est GFR (African American) 31.7; Est GFR (Non-African American) 27.4; Potassium 4.2 mmol/L (3.5-5.1)
[2018-10-20] MEDS: POTASSIUM CHLORIDE 10 MEQ TABCR PO SCH ×2 (08:52→20:31)
[2018-10-20] MEDS: ASPIRIN 81 MG ECTAB PO SCH (08:52)
[2018-10-20] MEDS: CARVEDILOL 6.25 MG TAB PO SCH ×2 (08:52→20:31)
[2018-10-20] MEDS: FUROSEMIDE 40 MG in SYRINGE 0 ML IV SCH ×2 (08:52→16:34)
[2018-10-20] MEDS: HEPARIN SOD 5,000 UNIT/0.5 ML VIAL SQ SCH ×2 (08:53→20:30)
--- NOTE | 2018-10-20 10:40 | Progress Note ---
DATE: 10/20/2018 Mr. Arana was seen today. He has been in the hospital for 10 days now with multiple issues. I was asked to see him because of pleural effusions, right greater than left. However, the patient was not interested in having a thoracentesis done. We did a chest x-ray yesterday which showed a large amount of colonic gas on the left, but not much fluid on the left, although he has got a fairly sizable right pleural effusion. The patient has multiple issues including rhabdomyolysis after a fall at home and renal insufficiency and congestive heart failure. At this point, as he is not interested, I will continue to follow along. If he starts to require oxygen, I think we can push this a bit more.
--- NOTE | 2018-10-20 15:55 | Hospitalist Progress Note ---
Date of Service October 20, 2018 Assessment & Plan (1) Acute on chronic combined systolic and diastolic congestive heart failure: - Echo - EF 25-30% with severe global hypokinesis; large L pleural effusion - Currently at a negative 8.5 L overall and family and patient reports edema looks improved -- Has been stable from a pulmonary perspective however CXR shows worsening volume overload/congestive changes however denies symptoms and maintaining appropriate O2 saturations on RA - Continue Lasix 40 mg IV BID and monitor Cr - has been diuresing more over the last 3 days - Carvedilol was increased to 18.75 mg BID; ASA 81 mg daily - Cardiology following - appreciate input - no invasive cardiac workup warranted at this time (2) TERE (acute kidney injury): - Likely multifactorial between fluid overload/hydronephrosis - Cr improving now with diuretic therapy - currently at 2.26 - unsure of baseline but making good urine and will continue to monitor and has good diuresis over last 3 days - however we may not be far from his baseline? (3) Hydronephrosis: - Urology following - plan on treated UTI and outpatient cystoscopy and trial of void in 2-3 weeks (4) UTI (urinary tract infection): - Pansensitive e. coli - Unasyn therapy completed as above (5) Bilateral pleural effusion: - Saturations are adequate on RA and no symptoms reported by patient however CXR with worsening findings - CT Surg consulted but patient declined thoracentesis at this time and have signed off unless worsening presentation (6) Pneumonia: - Possible aspiration PNA - procalcitonin 15 on admission - Completed course of Unasyn with renal dosing - BOILING HOUSE OILER following - mild/moderate oropharyngeal dysphagia - [facility]/no straws/aspiration precautions/ongoing BOILING HOUSE OILER therapy (7) Fall: - Was down for about 5 days - PT/OT - planning for rehab at [facility] (8) Traumatic rhabdomyolysis: - Patient had a CK above 1000 on admission and was on the ground for 5 days (9) Elevated troponin: - Troponin peaked at 3.9 and no cardiac symptoms - Was initially treated with heparin gtt but since D/C'd - Continue ASA 81 mg daily (10) Dystrophic nail: - Overgrown toe nails and keratinization into dorsum of the foot - Podiatry consulted and appreciate assistance (11) DVT prophylaxis: Disposition: Planning on [facility] for rehab. Will continue current diuresis and check labs in AM; hopefully can D/C next 1-2 days Subjective Patient is up in bedside chair today. Ate all of his lunch. Verbalizes no complaints and feels that his swelling is a lot better. States his breathing feels at baseline and states he doesn't move much but feels that his breathing is the same as when he is sitting. Constitutional: + fatigue and + weakness; no fever and no chills Ear, Nose, Mouth, Throat: no dry mouth and no sore throat Respiratory: no cough, no dyspnea and no dyspnea on exertion Cardiovascular: + edema; no chest pain and no orthopnea Gastrointestinal: no abdominal pain, no nausea, no vomiting, no constipation and no diarrhea/loose stools Genitourinary (Male): no dysuria Endocrine: + fatigue Physical Exam 2 Vital Signs (Past 24 Hours): Last Vital Signs Temp 36.6 C 10/20/18 11:45 Pulse 62 10/20/18 11:45 Resp 18 10/20/18 11:45 BP 121/70 10/20/18 11:45 Pulse Ox 95 10/20/18 11:45 Constitutional: + not well developed, + not well nourished, no acute distress and not ill appearing Eyes: sclerae not anicteric ENMT: Ears: no hearing impairment Neck: trachea midline Respiratory: normal respiratory effort Auscultation: + diminished lung sounds (bases b/l) Cardiovascular: Rate/Rhythm: regular rate and regular rhythm Extremities: + edema (anasarca - b/l arms legs but improving) Gastrointestinal (Abdomen): Inspection/Auscultation: normal bowel sounds Percussion/Palpation: abdomen soft; abdomen nontender Musculoskeletal: Head/Neck/Chest: normocephalic, head atraumatic and neck supple Neurologic: moves all extremities Psychiatric: A+Ox3, euthymic affect
[2018-10-20] MEDS: MICONAZOLE NITRATE POWDER 43 GM EXT SCH (20:30)
[2018-10-21 07:39] LABS: BUN Creatinine Ratio 15.6 (10-20); Calcium 7.4 mg/dl (8.5-10.1); Creatinine Clr Calc Pharmacy 29.8 ml/min; Est GFR (African American) 35.3; Est GFR (Non-African American) 30.4; Potassium 4.2 mmol/L (3.5-5.1)
[2018-10-21] MEDS: ASPIRIN 81 MG ECTAB PO SCH (08:21)
[2018-10-21] MEDS: FUROSEMIDE 40 MG in SYRINGE 0 ML IV SCH ×2 (08:22→17:12)
[2018-10-21] MEDS: CARVEDILOL 6.25 MG TAB PO SCH ×2 (08:22→21:34)
[2018-10-21] MEDS: POTASSIUM CHLORIDE 10 MEQ TABCR PO SCH ×2 (08:22→21:35)
[2018-10-21] MEDS: HEPARIN SOD 5,000 UNIT/0.5 ML VIAL SQ SCH ×2 (08:22→21:37)
[2018-10-21] MEDS: MICONAZOLE NITRATE POWDER 43 GM EXT SCH ×2 (08:22→21:35)
--- NOTE | 2018-10-21 14:25 | Hospitalist Progress Note ---
Date of Service October 21, 2018 Assessment & Plan (1) Acute on chronic combined systolic and diastolic congestive heart failure: - Echo - EF 25-30% with severe global hypokinesis; large L pleural effusion - Currently at a negative 12.7 L overall -- Has been stable from a pulmonary perspective however CXR shows worsening volume overload/congestive changes however denies symptoms and maintaining appropriate O2 saturations on RA - Continue Lasix 40 mg IV BID and monitor Cr - has been diuresing more over the last few days and may be prudent to get him to a dry weight before transition to [facility] as there is concern for non-compliance and to try and make sure he is at a good baseline - Carvedilol was increased to 18.75 mg BID; ASA 81 daily - Cardiology following - discussed with Dr. Curiel and Megan Evans PA-C - planning to follow in [facility] and consideration for ACEI once renal function stabilized to not skew monitoring with diuresis - no invasive cardiac workup warranted at this time (2) TERE (acute kidney injury): - Likely multifactorial between fluid overload/hydronephrosis - Cr improving now with diuretic therapy - currently at 2.07 - unsure of baseline but making good urine and will continue to monitor and has good diuresis - however we may not be far from his baseline? (3) Hydronephrosis: - Urology following - plan on treating UTI and outpatient cystoscopy and trial of void in 2-3 weeks - Will need Urology F/U (4) UTI (urinary tract infection): - Pansensitive e. coli - Unasyn therapy completed as above (5) Bilateral pleural effusion: - Saturations are adequate on RA and no symptoms reported by patient however CXR with worsening findings - CT Surg consulted but patient declined thoracentesis at this time and have signed off unless worsening presentation (6) Pneumonia: - Possible aspiration PNA - procalcitonin 15 on admission - Completed course of Unasyn with renal dosing - RESEARCH GROUP DIRECTOR following - mild/moderate [facility]roph[facility]/no [facility]/aspiration precautions/ongoing RESEARCH GROUP DIRECTOR therapy (7) Fall: - Was down for about 5 days - PT/OT - planning for rehab at [facility] (8) Traumatic rhabdomyolysis: - Patient had a CK above 1000 on admission and was on the ground for 5 days (9) Elevated troponin: - Troponin peaked at 3.9 and no cardiac symptoms - Was initially treated with heparin gtt but since D/C'd - Continue ASA 81 mg daily (10) Dystrophic nail: - Overgrown toe nails and keratinization into dorsum of the foot - Podiatry consulted and appreciate assistance (11) DVT prophylaxis: Heparin SC Disposition: Planning on [facility] for rehab. Will continue current diuresis and check labs in AM; hopefully can D/C next 1-2 days Subjective Patient verbalizes no complaints today. Edema is drastically improving and continues to diurese very nicely. Currently at a - 12.7 L this admission. Renal function continues to improve and at 2.07 at this time. He reports stable breathing and good appetite. Updated patient and family at bedside today. Constitutional: no fever, no chills and no fatigue Ear, Nose, Mouth, Throat: no dry mouth and no sore throat Respiratory: no cough, no dyspnea and no dyspnea on exertion Cardiovascular: + edema; no chest pain and no orthopnea Gastrointestinal: no abdominal pain, no nausea, no vomiting, no constipation and no diarrhea/loose stools Genitourinary (Male): no dysuria Endocrine: + fatigue Physical Exam 2 Vital Signs (Past 24 Hours): Last Vital Signs Temp 36.4 C L 10/21/18 12:22 Pulse 65 10/21/18 12:22 Resp 16 10/21/18 12:22 BP 122/67 10/21/18 12:22 Pulse Ox 96 10/21/18 12:22 Constitutional: + not well developed, + not well nourished, no acute distress and not ill appearing Eyes: sclerae not anicteric ENMT: Ears: no hearing impairment Neck: trachea midline Respiratory: normal respiratory effort Auscultation: + diminished lung sounds (bases b/l) Cardiovascular: Rate/Rhythm: regular rate and regular rhythm Extremities: + edema (anasarca - b/l arms legs but improving) Gastrointestinal (Abdomen): Inspection/Auscultation: normal bowel sounds Percussion/Palpation: abdomen soft; abdomen nontender Musculoskeletal: Head/Neck/Chest: normocephalic, head atraumatic and neck supple Neurologic: moves all extremities Psychiatric: A+Ox3, euthymic affect
--- NOTE | 2018-10-21 14:26 | Heart Failure Progress Note ---
Date of Service October 21, 2018 Assessment & Plan (1) Cardiomyopathy: He had severe left ventricular dysfunction on echocardiography, I do not know how long he has had this. It is conceivable that is related to his acute presentation and may correct quickly however a limited echo and follow-up did not show much improvement during this hospitalization. He did make low-grade enzymes but does not have an acute infarction pattern. This may or may not indicate that he has coronary artery disease. We will need to figure out whether he has coronary artery disease or not (catheterization versus stress testing) at some point, but I would not do that just yet as he has other issues. I would recommend continuing with diuresis and see if we can correct his other issues. I am going to increase his carvedilol today. (2) Acute on chronic combined systolic and diastolic congestive heart failure: Patient remains hypervolemic on exam. He is diuresing well at 3-4 L per day with a net negative of 12.7 L. His weight is down from 99 kg to 78 kg. I would recommend continued IV diuretics, Lasix 40 mg BID until his creatinine increases. At this point we are not sure what his baseline creatinine is. We discussed daily weights and low sodium diet. He has a bed at [facility] once he is stable for discharge. I would recommend referral to [facility] upon discharge. Patient is not 100% receptive to home nursing at this point but we can continue to discuss. I think it would definitely benefit him. Patient has a history of non-compliance and will definitely require close follow up upon discharge. Will continue to follow along during his stay. Subjective He feels better now than on admission, however he still complains of weakness and fatigue. He has not been out of bed much but is currently sitting in a chair at the bedside. His brother and sister in law are visiting. He denies cardiovascular symptoms. Swelling has improved significantly compared to earlier this week. Physical Exam 2 Vital Signs (Past 24 Hours): Last Vital Signs Temp 36.4 C L 10/21/18 12:22 Pulse 65 10/21/18 12:22 Resp 16 10/21/18 12:22 BP 122/67 10/21/18 12:22 Pulse Ox 96 10/21/18 12:22
--- NOTE | 2018-10-21 14:46 | Cardiology Progress Note ---
Date of Service October 21, 2018 Assessment & Plan (1) Elevated troponin: He has a troponin that was mildly elevated, peak just over 3. He does not complain of chest discomfort, his electrocardiogram does not show an acute cardiac event. An echocardiogram on admission shows severe global hypokinesis consistent with a nonischemic cardiomyopathy not ischemic heart disease. I would not pursue a coronary evaluation at this time. We do need to do something to exclude coronary disease as a cause of his cardiomyopathy but I would wait until he is little bit improved and do a stress test rather than catheterization. (2) Pulmonary edema: He had evidence of pulmonary edema with a high proBNP, chest x-ray findings and exam findings as well as anasarca. His pulmonary edema may be a consequence of total volume overload, however he did have severe left ventricular dysfunction. His creatinine had improved substantially (although has not normalized and may be approaching baseline now) and I would continue to diurese He still has some edema. (3) Cardiomyopathy: He had severe left ventricular dysfunction on echocardiography, I do not know how long he has had this. It is conceivable that is related to his acute presentation and may correct quickly however a limited echo and follow-up did not show much improvement during this hospitalization. He did make low-grade enzymes but does not have an acute infarction pattern. This may or may not indicate that he has coronary artery disease. We will need to figure out whether he has coronary artery disease or not (catheterization versus stress testing) at some point, but I would not do that just yet as he has other issues. I would recommend continuing with diuresis and see if we can correct his other issues. It might be appropriate to try an KEON inhibitor however I am concerned about his renal insufficiency, if that worsens we want to know whether it is because of diuresis or the KEON inhibitor. (4) Hypertension: His blood pressure has been better controlled over the past 24 hours, but still elevated at times. I have not altered his medications, however we should consider going up further on the carvedilol (which we want to do in the long run anyhow) or adding KEON inhibitor as discussed above. I will one over the other tomorrow depending on his kidney function. Subjective He is feeling better, he is sitting at his bedside today. He still has difficulty walking on his own but can walk with assistance in the room. He likes it here in the hospital and would like to stay, he is not sure how much he will like [facility]. Physical Exam 2 Vital Signs (Past 24 Hours): Last Vital Signs Temp 36.4 C L 10/21/18 12:22 Pulse 65 10/21/18 12:22 Resp 16 10/21/18 12:22 BP 122/67 10/21/18 12:22 Pulse Ox 96 10/21/18 12:22 Physical Exam: Constitutional: Alert, cooperative and in no distress. Pulmonary: Clear to auscultation bilaterally but decreased breath sounds at bases. Cardiac: Regular rhythm with no murmur, gallop or rub. Abdomen: Soft, nontender with normal bowel sounds. Extremities: +2 pretibial edema remains. Skin: Unchanged rash on legs, ecchymoses or petechiae. Results & Data Diagnostic Findings Telemetry: Sinus rhythm, rate in the 70s
[2018-10-22 05:58] LABS: Hematocrit (blood only) 39.2 % (42-52); Hemoglobin 12.9 g/dL (14.0-18.0); Mean Corpuscular Hgb Conc 32.9 g/dL (32-36); Mean Corpuscular Volume 89.9 fL (80-100); Mean Platelet Volume 11.4 fL (7.4-10.4); Platelet Count 223 K/uL (130-400); RDW Coefficient of Variation 15.2 % (11.5-14.5); RDW Standard Deviation 48.3 fL (36.4-46.3); Red Blood Count 4.36 M/uL (4.7-6.1); White Blood Count 7.19 K/uL (4.8-10.8)
[2018-10-22 06:26] LABS: BUN Creatinine Ratio 13.2 (10-20); Calcium 7.9 mg/dl (8.5-10.1); Creatinine Clr Calc Pharmacy 26.6 ml/min; Est GFR (African American) 30.7; Est GFR (Non-African American) 26.5; Potassium 4.2 mmol/L (3.5-5.1)
[2018-10-22 07:30] VITALS: TEMP 99.1; O2SAT 93
[2018-10-22] MEDS: ASPIRIN 81 MG ECTAB PO SCH (08:36)
[2018-10-22] MEDS: MICONAZOLE NITRATE POWDER 43 GM EXT SCH (08:36)
[2018-10-22] MEDS: POTASSIUM CHLORIDE 10 MEQ TABCR PO SCH (08:36)
[2018-10-22] MEDS: CARVEDILOL 6.25 MG TAB PO SCH (08:36)
[2018-10-22] MEDS: FUROSEMIDE 40 MG in SYRINGE 0 ML IV SCH (08:37)
[2018-10-22] MEDS: HEPARIN SOD 5,000 UNIT/0.5 ML VIAL SQ SCH ×2 (08:37→08:39)
[2018-10-22 14:13] VITALS: BP 162/91; PULSE 78
--- NOTE | 2018-10-22 17:55 | Discharge Summary ---
Date of Service October 22, 2018 Admission HPI Per Admitting Provider 77yo M w/ hx of possible DM who presents after being found down after 5 days per patient. Per patient, he fell 5 days ago due to a mechanical fall where he just couldn't stay up. He says he fell backwards, but then denies he struck his head or lost consciousness. He reports that he was able to "wiggle around," but was not able to get up off the ground because he was too weak. As such, he lay there for 5 days. His brother is in the room and agrees with this report. At this time, he is on BiPap and denies any major concerns. Denies any pain anywhere, denies any chest pain, denies nausea, vomiting. Reports he is hungry. Principal Diagnosis Acute Combined Systolic/Diastolic CHF Discharge Exam Constitutional no acute distress, not ill appearing and + not well groomed Eyes sclerae not anicteric ENMT Ears: no hearing impairment Mouth: + poor dentition and + chipped teeth Neck trachea midline Respiratory normal respiratory effort Auscultation: + diminished lung sounds (bases b/l) Cardiovascular Rate/Rhythm: regular rate and regular rhythm Extremities: + edema (minimal in b/l arms; continues with some swelling in b/l legs with likely some element of venous insufficiency) Gastrointestinal (Abdomen) Inspection/Auscultation: normal bowel sounds Percussion/Palpation: abdomen soft; abdomen nontender Musculoskeletal Head/Neck/Chest: normocephalic, head atraumatic and neck supple Neurologic moves all extremities Psychiatric A+Ox3, euthymic affect Discharge Data Allergies Allergy/AdvReac Type Severity Reaction Status Date / Time No Known Allergies Allergy Unverified 10/10/18 14:52 Consultations 10/10/18 15:25 ED Decision to Admit Stat 10/10/18 16:51 Consult Case Management - Discharge Planning Routine Consult Podiatry Routine 10/10/18 17:47 Consult Urology Routine 10/11/18 07:55 Consult Cardiology Routine 10/16/18 10:27 Consult Thoracic Surgery Routine Ordered Studies VIDEO SWALLOW STUDY Fluoroscopy time: 2.2 minutes. FINDINGS: Fluoroscopic guidance is provided to the Department of Speech Pathology in performing a video swallow study. The patient consumed barium- impregnated pudding, a cracker with paste, nectar thick liquid, and thin barium , and the swallowing mechanism was observed in real-time. Trace pharyngeal penetration was observed with thin barium. No aspiration was seen with any of the sampled textures. IMPRESSION: 1. Penetration was seen with thin barium. 2. No aspiration was identified with any of the sampled textures. 3. See dedicated speech pathology report for detailed findings and recommendations. CT chest wo con FINDINGS: Small amount of mucoid material within the trachea. A few opacified left lower lobe bronchi. No pneumothorax. Mild emphysema. Linear densities within the left upper lobe as well as bilateral lower lobe consolidation, left greater than right. Moderate to severe body wall edema. Cholelithiasis. Ascites is partially identified. This is better appreciated on the same day chest CT. The heart is mildly enlarged. Small pericardial effusion and moderate bilateral pleural effusions are noted. Normal caliber thoracic aorta. No mediastinal hilar lymphadenopathy. There is a focal 1 cm groundglass nodule within the left upper lobe on image 115. IMPRESSION: 1. Moderate bilateral pleural effusions and a small pericardial effusion. 2. Mild cardiomegaly. 3. Mild emphysema. 4. Bilateral airspace opacities as described above. This favors atelectasis. However, a superimposed left lower lobe pneumonia could also have a similar appearance. 5. Cholelithiasis. 6. Ascites. 7. A 1 cm groundglass nodule within the left upper lobe. Six-month chest CT follow-up is recommended to ensure stability. Hospital Course (1) Acute on chronic combined systolic and diastolic congestive heart failure: - Echo - EF 25-30% with severe global hypokinesis; large L pleural effusion - Currently at a negative 17.1 L overall and lost approx. 47 lbs since admission - current weight 172.26 - Will convert to Lasix 40 mg daily and monitor intake/output and recommend daily weights with logs to take to his F/U with [facility]F Clinic - Carvedilol 18.75 mg BID and ASA 81 mg daily; Cardiology would like to consider ACEI vs Entresto in office pending renal stabilization - Cardiology followed - discussed with Dr. Curiel and Megan Evans PA-C - planning on close CHF F/U (2) TERE (acute kidney injury): - Likely multifactorial between fluid overload/hydronephrosis - Cr improving now with diuretic therapy - currently at 2.3 - unsure of baseline but making good urine/electrolytes stable - This ultimately may be his baseline around 2-2.3 as we have not gotten much better of readings (3) Hydronephrosis: - Urology followed - plan on treating UTI and outpatient cystoscopy and trial of void in 1-2 weeks - Will need Urology F/U ([facility]) (4) UTI (urinary tract infection): - Pansensitive e. coli - Unasyn therapy completed (5) Bilateral pleural effusion: - Saturations are adequate on RA and no symptoms reported by patient however CXR supports decent sized pleural effusions - CT Surg consulted but patient declined thoracentesis at this time and have signed off unless worsening presentation or O2 needs arise could refer to Dr. Montes for thoracentesis (6) Pneumonia: - Possible aspiration PNA - procalcitonin 15 on admission - Completed course of Unasyn with renal dosing - [employer] followed - mild/moderate oropharyngeal dysphagia - [facility] soft diet/no straws/aspiration precautions/ongoing [employer] therapy (7) Fall: - Was down for about 5 days - PT/OT - planning for rehab at [facility] (8) Traumatic rhabdomyolysis: - Patient had a CK above 1000 on admission and was on the ground for 5 days (9) Elevated troponin: - Troponin peaked at 3.9 and no cardiac symptoms - Was initially treated with heparin gtt but since D/C'd - Continue ASA 81 mg daily (10) Dystrophic nail: - Overgrown toe nails and keratinization into dorsum of the foot - Podiatry consulted and appreciate assistance - recommend neosporin to the dorsum of the foot Total Time Total Time Spent Total Time Spent (In Minutes): Greater than 30 minutes Discharge Plan Discharge Items Patient Disposition: Transfer [facility] Fac Reason For Visit: FALL, TERE Discharge Diagnosis: Acute Systolic/Diastolic CHF Discharge Goals: Decrease discomfort, Improve disease control and Increase independence Activity: Resume your previous activity Non-emergency contact: Primary Care Provider Call non-emergency contact if: you have any medication questions, your symptoms worsen and you have a fever Follow-up/Referrals: Jose E Duran, [Primary Care Provider] - (Please, follow up with Dr. Jose E Duran when you return home. *To schedule an appointment, call the office at [phone].) Megan Evans PA-C [Physician] - 10/29/18 10:30 am (Follow up with heart failure program. BRING MEDICATION LIST AND WEIGHT LOG TO APPOINTMENT. ) Diet: Heart Healthy Fluids: 1800ml (7 cups) Addtl Provider Instructions: Acute on chronic combined systolic and diastolic congestive heart failure: - Echo - EF 25-30% with severe global hypokinesis; large L pleural effusion - Currently at a negative 17.1 L balance overall and down 47 lbs since admission - Continue Lasix 40 mg daily and monitor renal function and intake/output - utilizing a 1800 mL restriction here -- May ultimately need to increase this pending monitoring - recommend daily weights and please send the log of weights with him to his follow-up cardiology appointment - currently at 172 lbs - Carvedilol 18.75 mg BID; ASA 81 daily - Cardiology followed - planning to follow in the CHF Clinic with Megan Evans PA-C and will need close F/U appointment - anticipating possibly starting and ACEI but is pending renal function following TERE (acute kidney injury): - Suspect he has chronic kidney disease as well. Unknown baseline creatinine as it was 3+ on admission and stabilizing around 2.0-2.3 but making significant urine and electrolytes are stable [place]one[place]: [place] [facility] [place] - outpatient cystoscopy and trial of void in 1-2 weeks and will need follow-up UTI (urinary tract infection): - Pansensitive e. coli - Unasyn therapy completed Bilateral pleural effusion: - Saturations are adequate on RA and no symptoms reported by patient - CT Surg consulted but patient declined thoracentesis at this time and have signed off unless worsening presentation Pneumonia: - Possible aspiration PNA - procalcitonin 15 on admission - Completed course of Unasyn with renal dosing - [employer] followed - mild/moderate oropharyngeal dysphagia - [facility] soft diet/no straws/aspiration precautions/ongoing [employer] therapy Fall with mild traumatic rhabdomyolysis (resolved): - Was down for about 5 days - PT/OT - planning for rehab at [facility] Dystrophic nail: - Overgrown toe nails and keratinization into dorsum of the foot - Podiatry consulted and performed intervention - recommends neosporin to the dorsum of the food with no dressing and maintain dry socks Prescriptions: New carvedilol 6.25 mg Tablet 18.75 mg PO BID 30 Days Qty: 180 RF: 0 aspirin [Ecotrin Low Strength] 81 mg Tablet,Delayed Release (Dr/Ec) 81 mg PO QAM 30 Days Qty: 30 RF: 0 potassium chloride [Klor-Con M10] 10 mEq Tablet,Er Particles/Crystals 20 meq PO DAILY 30 Days Qty: 60 RF: 0 furosemide [Lasix] 40 mg tablet 40 mg PO DAILY 30 Days Qty: 30 RF: 0 No Action No Known Home Medications RF: 0 Stand-Alone Forms: [facility] Discharge Orders: Discharge Order (Routine); Ordered 10/22/18 Ordered By: Miriam Coulter Skilled Items Patient informed of condition?: Yes DNR: No Discharge Level of Care: Skilled Communicable Disease: No Discharge Prognosis: Stable Admission Data Admit Date/Time: 10/10/18 15:59 Attending Provider: Judd Kincaid Admit Provider: Jean-Claude Duran Primary Care Provider: Jose E Duran Other Providers: Fady Montes ; Pablito Larios ; Garrison Chamorro ; Roxy Gu ; Jean-Claude Duran Service: Medical Other Interventions: Discharge Summary Assessment (RN) Last Done: 10/22/18 14:03 Pending Studies at Discharge: No DC Date/Time DO NOT enter until pt leaves facility: 10/22/18 15:15
== END 2018-10-22 15:15 | DRG 291 ==
LOC: ED 13:58 → 2S 15:59 → SUATTDRO 15:59 → 2S 16:35 → 4W 10-21 14:16

== ENCOUNTER 2018-10-29 08:05 | Inpatient (IN) ==
[2018-10-29] MEDS ORDERED: PANTOprazole 80 MG in DEXTROSE 5% 100 ML IV ONE ×2 (08:34)
[2018-10-29] MEDS ORDERED: PANTOPRAZOLE BOLUS/DRIP 1 EA IV STA (08:34)
[2018-10-29] MEDS ORDERED: SODIUM CHLORIDE 0.9% 250 ML IV PRN (08:36)
[2018-10-29] MEDS ORDERED: cefTRIAXone SODIUM 1,000 MG/50 ML BAG IV STA (08:36)
[2018-10-29] MEDS ORDERED: SODIUM CHLORIDE 0.9% 500 ML IV SCH (08:45)
[2018-10-29] MEDS ORDERED: PANTOprazole 40 MG in DEXTROSE 5% 100 ML IV SCH (08:45)
--- NOTE | 2018-10-29 08:49 | XRay Report ---
XR chest 1V portable CLINICAL HISTORY: GI bleed. COMPARISON STUDY: Chest CT October 10, 2018. Chest radiograph October 27, 2018. FINDINGS: Cardiomediastinal silhouette is stable. There is no pneumothorax. Bibasilar opacities have improved since exam of October 27, 2018. There is mild residual left basilar opacity. No evidence fo r pulmonary edema. There are possible trace bilateral pleural effusions. Incidental note is made of a calcified gallstone. IMPRESSION: 1. Interval improvement in bibasilar opacities. Mild residual left basilar opacity. 2. Trace bilateral pleural effusions. Electronically signed by: Noe Malik M.D. 10/29/2018 8:48 AM
[2018-10-29 09:04] LABS: iSTAT Creatinine 1.9 mg/dl (0.6-1.3); iSTAT Hemoglobin 8.8 g/dl (14.0-18.0); iSTAT Ionized Calcium 1.11 mmol/l (1.12-1.32); iSTAT Potassium 4.3 mEq/L (3.3-5.0)
[2018-10-29 09:10] LABS: Basophils # (auto) 0.06 K/uL (0-0.2); Basophils % (auto) 1.1 %; Eosinophils # (auto) 0.29 K/uL (0-0.5); Eosinophils % (auto) 5.4 %; Hematocrit (blood only) 27.3 % (42-52); Hemoglobin 8.9 g/dL (14.0-18.0); Immature Granulocytes # (auto) 0.01 K/uL (0.00-0.02); Immature Granulocytes % (auto) 0.2 %; Lymphocytes # (auto) 0.84 K/uL (1.2-3.4); Lymphocytes % (auto) 15.6 %; Mean Corpuscular Hgb Conc 32.6 g/dL (32-36); Mean Corpuscular Volume 91.9 fL (80-100); Mean Platelet Volume 10.9 fL (7.4-10.4); Monocytes # (auto) 0.48 K/uL (0.11-0.59); Monocytes % (auto) 8.9 %; Neutrophils # (auto) 3.72 K/uL (1.4-6.5); Neutrophils % (auto) 68.8 %; Platelet Count 164 K/uL (130-400); RDW Coefficient of Variation 15.7 % (11.5-14.5); RDW Standard Deviation 52.8 fL (36.4-46.3); Red Blood Count 2.97 M/uL (4.7-6.1)
[2018-10-29 09:23] LABS: INR 1.1 (0.9-1.1); Partial Thromboplastin Ratio 0.8; Partial Thromboplastin Time 21.1 Seconds (21.0-31.0); Prothrombin Time 10.8 Seconds (9.0-12.0)
[2018-10-29 09:26] LABS: Albumin Level 1.8 gm/dl (3.4-5.0); BUN Creatinine Ratio 29.1 (10-20); Calcium 8.6 mg/dl (8.5-10.1); Creatinine Clr Calc Pharmacy 32.4 ml/min; Est GFR (African American) 38.6; Est GFR (Non-African American) 33.3; Potassium 4.3 mmol/L (3.5-5.1)
[2018-10-29 09:29] LABS: Albumin Globulin Ratio 0.4 (0.9-2); Bilirubin,Total 0.3 mg/dl (0.2-1); Globulin 4.9 gm/dl (2.5-4.0); RBC Morphology Unremarkable; Total Protein 6.7 gm/dl (6.4-8.2)
--- NOTE | 2018-10-29 09:33 | History & Physical Report ---
Date of Service October 29, 2018 Assessment & Plan (1) GI bleed: - Admit to tele for monitoring - Protonix IV 40 mg BID - Received NSS 500 mL in the ER, and was started on protonix gtt. Hold on further fluids for now with poor EF and recently diuresed for significant fluid retention. - Checking lactic acid, troponin and trending H&H q6h. - Heme +, monitor all stools. - Consult GI, Case - Consider cardiology consultation if worsening BRBPR. (2) Altered mental status: - Confusion with place, difficulty with answering ROS although all negative, and cannot tell me the year - Will check CT head noncontrast due to renal function stat to ensure no acute intracranial abnormality. (3) Acute on chronic combined systolic and diastolic congestive heart failure: - Echo completed during last admission- EF 25-30% with severe global hypokinesis; - Noted trace bibasilar pleural effusion but apppears the large left sided pleural effusion is largely resolved compared to last admission. - Appears to be euvolemic currently. No JVD, no edema BLE. - Strict I/Os, daily weights - HOLD Lasix 40 mg daily- got IVF in the ER as above, hold on further fluids at this time as vitals are stable and no further BRPBR. - Was set up with CHF clinic upon last admit - Carvedilol 18.75 mg BID and ASA 81 mg daily; Cardiology would like to consider ACEI vs Entresto in office pending renal stabilization - pt was supposed to have CHF clinic visit today but is here in the ER. (4) Cardiomyopathy: (5) Elevated troponin: - Trend with GI bleed to ensure no type 2 NM, no initial troponin checked, will add on now. - EKG reviewed as above, no acute findings. (6) UTI (urinary tract infection): - Was growing pansensitive E. Coli, treated with course of unasyn, was getting IM ceftriaxone as outpatient at [facility]. - Continue ceftriaxone IV for now, repeat cultures showing pinpoint growth and reincubating. (7) Indwelling White catheter present: - Changed in the ER on 10/27/18, continue for now. (8) Hypertension: - BP 145/70, continue cavedilol. Hold lasix as above. (9) Urinary retention: - treating UTI and outpatient cystoscopy - Will continue white cath at now, plan on outpatinet void trial at later date. - Will need Urology F/U (MNP) (10) Diabetes mellitus: - hx of such, monitor glucose with am labs. - ISS with accuchecks q6h while NPO and achs. (11) CKD (chronic kidney disease): - Likely multifactorial between fluid overload/hydronephrosis from last admission. - Unknown baseline, appears Cr is much better at this point at 1.92. Follow am prp. (12) Dysphagia: - NPO for now, once allowed to eat [facility]/no straws/aspiration precautions as recommended from last admit. (13) DVT prophylaxis: - teds, scds, no chemical prophylaxis due to GI bleed as above. History of Present Illness Chief Complaint: GI bleed, sent from [facility] Primary Care Provider: Jose E Duran, This is a 77 yo M with PMHx of chronic combined systolic and diastolic congestive heart failure with LVEF of 25-30% on 10/15/18, with severe global hypokinesis, nonischemic cardiomyopathy, hx of bilateral pleural effusion, CKD unknown staging, UTI with pansensitive e.coli, indwelling white catheter with hx of dyronephrosis, recent pneumonia, aspiration, and falls. The patient was recently admitted from 10/10/18-10/22/18 for CHF exacerbation as well as fall, positive blood cultures which was due to UTI and pneumonia. Pt was discharged to [facility]. On 10/27/18 the patient presented to the ED for AMS. This improved with thae administration of Narcan, however there were no narcotic listed on med list. He was found to have residual UTI and was discharged on ceftriaxone 1 gm IM daily x 7 days. White catheter was changed on 10/27/18. At that time the patient hgb was 10.1, compared to ~12 during last admission, however I cannot find if a guiac was done in the ER. Today the patients Hgb is 8.9 and was sent due to BRBPR found in the patients brief, by staff at [facility]. Guiac today is heme +. Pt currently does not have abdominal complaints. He denies dizziness, lightheadedness, palpiations, flutter, sob. No fever or chills. Pt asks me if he is in the hospital, and is unable to tell me the year. He responds appropriately to most questions but response is slow. Allergies Allergy/AdvReac Type Severity Reaction Status Date / Time No Known Allergies Allergy Verified 10/29/18 09:24 Home Medications Home Medications Medication Instructions Recorded Confirmed Type aspirin [Ecotrin Low Strength] 81 mg PO QAM 30 Days #30 tab 10/22/18 10/29/18 Rx carvedilol 18.75 mg PO BID 30 Days #180 tab 10/22/18 10/29/18 Rx furosemide [Lasix] 40 mg PO DAILY 30 Days #30 tab 10/22/18 10/29/18 Rx potassium chloride [Klor-Con M10] 20 meq PO DAILY 30 Days #60 tab 10/22/18 10/29/18 Rx acetaminophen 325 mg PO Q6H PRN 10/27/18 10/29/18 History ceftriaxone 1 g IV DAILY 10/29/18 10/29/18 History Past Med/Surg History Medical History CKD (chronic kidney disease) GI bleed (Acute) Altered mental status (Acute) UTI (urinary tract infection) (Acute) Indwelling White catheter present (Acute) Hypertension Bilateral pleural effusion Traumatic rhabdomyolysis (Resolved) Acute on chronic combined systolic and diastolic congestive heart failure Cardiomyopathy DVT prophylaxis Pneumonia (Resolved) Dystrophic nail (Chronic) Hydronephrosis Diabetes mellitus (Chronic) Family History Mother Heart attack Social History Preferred Language: Prydeinig Communication Ability: Effective Nurses Director Required: No Beliefs That Will Affect Care: None Current Living Situation: Halfway Other Information That Helps Us Care for You: No Feels Safe at Home: Yes Safety Concerns: Feels Safe At This Time Smoking Status: Former smoker Hx Alcohol Use: No Hx Substance Use: No Review of Systems Constitutional: no fever, no chills, no sweats and no fatigue Eyes: no diplopia and no worsening vision Ear, Nose, Mouth, Throat: no dizziness, no nasal discharge, no facial pain and no sore throat Respiratory: no cough, no dyspnea and no wheezing Cardiovascular: no chest pain, no palpitations, no lightheadedness and no syncope Gastrointestinal: no nausea, no vomiting and no constipation no diarrhea Genitourinary (Male): no dysuria, no urinary frequency, no urinary hesitancy and no hematuria Musculoskeletal: no back pain, no joint pain, no swelling and no muscle weakness Integumentary: no rash, no lesions and no wounds Neurologic: no gait abnormality, no falls, no numbness, no dizziness and no syncope Psychiatric: no depression and no anxiety Endocrine: no fatigue Physical Exam Vital Signs (Past 24 Hours): Last Vital Signs Temp 36.8 C 10/29/18 08:16 Pulse 75 10/29/18 09:07 Resp 16 10/29/18 09:07 BP 144/80 H 10/29/18 09:07 Pulse Ox 96 10/29/18 09:07 Physical Exam: General: awake, alert, no apparent distress Head: Normocephalic, atraumatic HHENT: PERRL, EOMI, no pharyngeal exudate, mucous membranes moist, + residual food in mouth, + poor dentition Chest: Diminished slightly at bases, on 2L via NC with sats at 96%, no adventitious breath sounds Cardiac: Regular rate and rhythm, + soft SANJUANITA, no JVD, normal peripheral pulses, good capillary refill Abdominal: NABS x 4 quadrants, soft, nontender to palpation, no rebound, guarding or tenderness Extremities: + chronic skin changes, Normal inspection, no peripheral edema or erythema, calfs nontender to palpation Psych: Normal mood and affect Neuro: Awake, oriented to self, asks if he is in the hospital, not able to answer the year, no motor deficits, speech is clear but slow, no peripheral sensory deficits Results & Data Diagnostic Findings XR chest 1V portable CLINICAL HISTORY: GI bleed. COMPARISON STUDY: Chest CT October 10, 2018. Chest radiograph October 27, 2018. FINDINGS: Cardiomediastinal silhouette is stable. There is no pneumothorax. Bibasilar opacities have improved since exam of October 27, 2018. There is mild residual left basilar opacity. No evidence for pulmonary edema. There are possible trace bilateral pleural effusions. Incidental note is made of a c alcified gallstone. IMPRESSION: 1. Interval improvement in bibasilar opacities. Mild residual left basilar opacity. 2. Trace bilateral pleural effusions. ECG Additional Comments: 29-OCT-2018 09:32:45 [facility] Normal sinus rhythm Left axis deviation Possible Anterior infarct , age undetermined Abnormal ECG When compared with ECG of 27-OCT-2018 12:49, No significant change was found Vent. rate 77 BPM IA interval 190 ms QRS duration 88 ms QT/QTc 412/466 ms P-R-T axes 68 -37 60 Code Status & VTE Plan Code Status FULL Supervising Physician Co-Signing Physician Notes Patient seen and examined, discussed with physician home care assistant about patient condition and care plan, agree current care plan, Subjective: Feeling weak, no complaint, review of system is unremarkable Kerry denies fever chills, denies nausea vomiting, denies cough sputum shortness of breath, denies chest pain palpitation Nursing staff report decreased urine output, blood pressure is in borderline low Objective: Vital signs reviewed and stable, Frail looking however conversational, awake alert orientated, Regular rhythm S1-S2, no murmur, that was decreased breathing sounds there was no wheezing rhonchi or crackles, abdomen was soft nontender bowel sounds positive, lower extremity no edema, neurological evaluation of deficits Lab studies: Laboratory Results - last 24 hr 10/29/18 10/29/18 10/29/18 08:49 08:50 08:50 WBC 5.40 RBC 2.97 L Hgb 8.9 L POC Hgb 8.8 L Hct 27.3 L POC Hct 26 L MCV 91.9 MCH 30.0 MCHC 32.6 RDW Std Deviation 52.8 H RDW Coeff of Jumana 15.7 H Plt Count 164 MPV 10.9 H Immature Gran % (Auto) 0.2 Neut % (Auto) 68.8 Lymph % (Auto) 15.6 [place] % (Auto) 8.9 Eos % (Auto) 5.4 Baso % (Auto) 1.1 Immature Gran # (Auto) 0.01 Neut # (Auto) 3.72 Lymph # (Auto) 0.84 L [place] # (Auto) 0.48 Eos # (Auto) 0.29 Baso # (Auto) 0.06 RBC Morphology Unremarkable PT 10.8 INR 1.1 APTT 21.1 PTT Ratio 0.8 POC Sodium 146 H Sodium POC Potassium 4.3 Potassium POC Chloride 104 Chloride Carbon Dioxide POC Total CO2 31 Anion Gap POC Anion Gap 16.0 POC BUN 46 H BUN Creatinine POC Creatinine 1.9 H Est Cr Clr Drug Dosing Est GFR ( Amer) Est GFR (Non-Af Amer) BUN/Creatinine Ratio Glucose POC Glucose (other) 146 H Lactate Calcium POC Ioniz Calcium Doris 1.11 L Magnesium Total Bilirubin AST ALT Alkaline Phosphatase Troponin I Total Protein Albumin Globulin Albumin/Globulin Ratio Blood Type Blood Type Recheck Antibody Screen Crossmatch 10/29/18 10/29/18 10/29/18 08:50 08:50 08:55 WBC RBC Hgb POC Hgb Hct POC Hct MCV MCH MCHC RDW Std Deviation RDW Coeff of Jumana Plt Count MPV Immature Gran % (Auto) Neut % (Auto) Lymph % (Auto) [place] % (Auto) Eos % (Auto) Baso % (Auto) Immature Gran # (Auto) Neut # (Auto) Lymph # (Auto) [place] # (Auto) Eos # (Auto) Baso # (Auto) RBC Morphology PT INR APTT PTT Ratio POC Sodium Sodium 143 POC Potassium Potassium 4.3 POC Chloride Chloride 108 H Carbon Dioxide 31 POC Total CO2 Anion Gap 4.0 POC Anion Gap POC BUN BUN 56 H Creatinine 1.92 H POC Creatinine Est Cr Clr Drug Dosing 32.4 Est GFR ( Amer) 38.6 Est GFR (Non-Af Amer) 33.3 BUN/Creatinine Ratio 29.1 H Glucose 144 H POC Glucose (other) Lactate Calcium 8.6 POC Ioniz Calcium Doris Magnesium Total Bilirubin 0.3 AST 40 H ALT 47 Alkaline Phosphatase 100 Troponin I Total Protein 6.7 Albumin 1.8 L Globulin 4.9 H Albumin/Globulin Ratio 0.4 L Blood Type AB Positive Blood Type Recheck AB Positive Antibody Screen NEGATIVE Crossmatch See Detail 10/29/18 10/29/18 10/29/18 10:45 12:51 12:51 WBC RBC Hgb 8.8 L POC Hgb Hct POC Hct MCV MCH MCHC RDW Std Deviation RDW Coeff of Jumana Plt Count MPV Immature Gran % (Auto) Neut % (Auto) Lymph % (Auto) [place] % (Auto) Eos % (Auto) Baso % (Auto) Immature Gran # (Auto) Neut # (Auto) Lymph # (Auto) [place] # (Auto) Eos # (Auto) Baso # (Auto) RBC Morphology PT INR APTT PTT Ratio POC Sodium Sodium POC Potassium Potassium POC Chloride Chloride Carbon Dioxide POC Total CO2 Anion Gap POC Anion Gap POC BUN BUN Creatinine POC Creatinine Est Cr Clr Drug Dosing Est GFR ( Amer) Est GFR (Non-Af Amer) BUN/Creatinine Ratio Glucose POC Glucose (other) Lactate 1.3 Calcium POC Ioniz Calcium Doris Magnesium Total Bilirubin AST ALT Alkaline Phosphatase Troponin I 0.025 Total Protein Albumin Globulin Albumin/Globulin Ratio Blood Type Blood Type Recheck Antibody Screen Crossmatch 10/29/18 12:51 WBC RBC Hgb POC Hgb Hct POC Hct MCV MCH MCHC RDW Std Deviation RDW Coeff of Jumana Plt Count MPV Immature Gran % (Auto) Neut % (Auto) Lymph % (Auto) [place] % (Auto) Eos % (Auto) Baso % (Auto) Immature Gran # (Auto) Neut # (Auto) Lymph # (Auto) [place] # (Auto) Eos # (Auto) Baso # (Auto) RBC Morphology PT INR APTT PTT Ratio POC Sodium Sodium 143 POC Potassium Potassium 4.1 POC Chloride Chloride 109 H Carbon Dioxide 30 POC Total CO2 Anion Gap 4.0 POC Anion Gap POC BUN BUN 53 H Creatinine 1.86 H POC Creatinine Est Cr Clr Drug Dosing 33.5 Est GFR ( Amer) 40.1 Est GFR (Non-Af Amer) 34.6 BUN/Creatinine Ratio 28.5 H Glucose 153 H POC Glucose (other) Lactate Calcium 8.4 L POC Ioniz Calcium Doris Magnesium 2.4 Total Bilirubin AST ALT Alkaline Phosphatase Troponin I Total Protein Albumin Globulin Albumin/Globulin Ratio Blood Type Blood Type Recheck Antibody Screen Crossmatch Assessment and plan: 77 year-old male with a history of severe CHF and TERE admitted with acute blood loss anemia, heme positive stool and BRBPR. Hemodynamically stable, Continue Protonix 40 mg BID. GI input appreciated, no invasive GI work up at this point. Continue to monitor H&H and for s/sx of overt GIB. If further bleeding, will consider EGD. Keep NPO for now. Patient is awake alert oriented he want to be full code, I discussed with the risk and benefit of blood transfusion, with the patient's bladder bedside, patient consented blood transfusion if needed, will transfuse if hemoglobin less than 8 (1) UTI (urinary tract infection) Encounter type: subsequent encounter Indwelling urinary catheter type: indwelling urethral catheter Urinary tract infection type: catheter-associated UTI Qualified Code(s): T83.511D - Infection and inflammatory reaction due to indwelling urethral catheter, subsequent encounter; N39.0 - Urinary tract infection, site not specified (2) Altered mental status Altered mental status type: delirium Qualified Code(s): R41.0 - Disorientation, unspecified
[2018-10-29] MEDS ORDERED: ACETAMINOPHEN 325 MG TAB PO PRN ×2 (09:47→11:51)
[2018-10-29] MEDS ORDERED: ONDANSETRON INJ 2 MG/ML 2 ML VIAL IV PRN (11:51)
[2018-10-29] MEDS ORDERED: INFLUENZA ADMINISTRATION CHARGE ONE (12:30)
[2018-10-29] MEDS ORDERED: PNEUMOCOCCAL POLYSACCHARIDES 25 MCG/0.5 ML VIAL/SYR IM ONE (12:30)
[2018-10-29] MEDS ORDERED: INFLUENZA VACCINE HIGH DOSE 65+ 0.5 ML SYR IM ONE (12:30)
[2018-10-29] MEDS ORDERED: PNEUMOCOCCAL ADMINISTRATION CHARGE ONE (12:30)
--- NOTE | 2018-10-29 12:31 | CT Scan Report ---
CT head/brain wo con CLINICAL HISTORY: Acute change in mental status COMPARISON STUDY: October 27, 2018 TECHNIQUE: Axial CT of the brain is performed from the vertex to the skull base. IV contrast was not administered for this examination. A dose lowering technique was utilized adhering to the principles of ALARA. CT DOSE: 614.27 mGy.cm FINDINGS: No intra or extra-axial mass lesions are visualized. There is no CT evidence of acute cortical infarc tion. There is no evidence of midline shift. There is no acute hemorrhage. No calvarial fractures ar e visualized. There are patchy white matter hypodensities likely on a small vessel basis. There is no evidence of pathologic ventricular dilatation. There is no evidence of acute sinusitis IMPRESSION: No acute intracranial findings Electronically signed by: Lonnie Recio M.D. 10/29/2018 12:30 PM
[2018-10-29] MEDS ORDERED: SODIUM CHLORIDE 0.45 % 1,000 ML IV SCH (12:45)
[2018-10-29 13:31] LABS: BUN Creatinine Ratio 28.5 (10-20); Calcium 8.4 mg/dl (8.5-10.1); Creatinine Clr Calc Pharmacy 33.5 ml/min; Est GFR (African American) 40.1; Est GFR (Non-African American) 34.6; Magnesium 2.4 mg/dl (1.8-2.4); Potassium 4.1 mmol/L (3.5-5.1)
--- NOTE | 2018-10-29 14:09 | Gastrointestinal Consultation ---
Date of Consultation October 29, 2018 Assessment & Plan (1) Acute blood loss anemia: (2) Bright red blood per rectum: (3) Heme positive stool: Patient is a 77 year-old male with a history of severe CHF and TERE admitted with acute blood loss anemia, heme positive stool and BRBPR. 1. Continue Protonix 40 mg BID. 2. Will hold off on invasive GI work up at this point. 3. Continue to monitor H&H and for s/sx of overt GIB. If further bleeding, will consider EGD. 4. Keep NPO for now. 5. Supportive medical management. Thank you for allowing us to participate in the care of this patient. If you have any questions or concerns, please do not hesitate to contact us. Supervising Physician Co-Signing Physician Notes Agree with HARSHAD Babin as above Abd: Soft, NT, ND, +BS Nursing reports small smear of bright red blood upon transfer to floor, however, no other BM's\ Continue current therapy and supportive care Recommend CT scan of the Abd/pelvis with PO contrast Will follow clinical course and make further recommendations as needed History of Present Illness Reason for Consultation: GI Bleed Requesting Physician: Azul Llanes PA-C Attending Physician: Sajan De León MD, PhD, [facility] History of Present Illness Patient is a 77 year-old male with a complex past medical history significant for severe congestive heart failure (EF 25-30%) admitted to the hospital after he was found to have bright red blood in his undergarment. He was also heme positive on a Guiac test. Patient was supposed to be seen at the CHF clinic this morning but was sent to the ER prior to his appointment. Patient is a rather poor historian but denies any overt GIB symptoms, abdominal pain, nausea, vomiting or abdominal pain. On arrival, he was noted have mild bilateral pleural effusions, normal troponin but signifciant anemia from prior admission. The H&H on 10/18 was noted to be 14.6/43.3 dropped to 10.1/30.7 on 10/27 and now 8.9/27.3. He has had a short PPI ggt but was switched to Protonix 40 mg BID due to concerns for fluid overload. Allergies Allergy/AdvReac Type Severity Reaction Status Date / Time No Known Allergies Allergy Verified 10/29/18 09:24 Home Medications Home Medications Medication Instructions Recorded Confirmed Type aspirin [Ecotrin Low Strength] 81 mg PO QAM 30 Days #30 tab 10/22/18 10/29/18 Rx carvedilol 18.75 mg PO BID 30 Days #180 tab 10/22/18 10/29/18 Rx furosemide [Lasix] 40 mg PO DAILY 30 Days #30 tab 10/22/18 10/29/18 Rx potassium chloride [Klor-Con M10] 20 meq PO DAILY 30 Days #60 tab 10/22/18 10/29/18 Rx acetaminophen 325 mg PO Q6H PRN 10/27/18 10/29/18 History ceftriaxone 1 g IV DAILY 10/29/18 10/29/18 History Patient History Medical History CKD (chronic kidney disease) GI bleed (Acute) Altered mental status (Acute) UTI (urinary tract infection) (Acute) Indwelling Moreno catheter present (Acute) Hypertension Bilateral pleural effusion Traumatic rhabdomyolysis (Resolved) Acute on chronic combined systolic and diastolic congestive heart failure Cardiomyopathy DVT prophylaxis Pneumonia (Resolved) Dystrophic nail (Chronic) Hydronephrosis Diabetes mellitus (Chronic) Family History Mother Heart attack Social History Communication Ability: Unable Beliefs That Will Affect Care: None marital status: Single Current Living Situation: [facility] Other Information That Helps Us Care for You: No Feels Safe at Home: Yes Safety Concerns: Feels Safe At This Time Smoking Status: Former smoker Hx Alcohol Use: No Hx Substance Use: No Review of Systems Unable to obtain a reliable ROS due to altered mental status Physical Exam Vital Signs (Past 24 Hours): Last Vital Signs Temp 36.5 C 10/29/18 12:49 Pulse 73 10/29/18 12:49 Resp 16 10/29/18 12:49 BP 156/63 H 10/29/18 12:49 Pulse Ox 100 10/29/18 12:49 Constitutional: frail appearing Eyes: EOM intact bilaterally Respiratory: Auscultation: + diminished lung sounds (bases) Cardiovascular: Rate/Rhythm: regular rate and regular rhythm Gastrointestinal (Abdomen): Inspection/Auscultation: normal bowel sounds Percussion/Palpation: abdomen soft; abdomen nontender Musculoskeletal: minimal pedal edema Skin: + pallor dry skin Psychiatric: Orientation: alert, oriented to person and oriented to place; + not oriented to time Results & Data Laboratory Results Abnormal lab results 10/29/18 10/29/18 10/29/18 Range/Units 08:49 08:50 08:50 RBC 2.97 L (4.7-6.1) M/uL Hgb 8.9 L (14.0-18.0) g/dL POC Hgb 8.8 L (14.0-18.0) g/dl Hct 27.3 L (42-52) % POC Hct 26 L (42-52) % RDW Std Deviation 52.8 H (36.4-46.3) fL RDW Coeff of Jumana 15.7 H (11.5-14.5) % MPV 10.9 H (7.4-10.4) fL Lymph # (Auto) 0.84 L (1.2-3.4) K/uL POC Sodium 146 H (135-144) mEq/L Chloride 108 H (98-107) mmol/L POC BUN 46 H (7-18) mg/dl BUN 56 H (7-18) mg/dl Creatinine 1.92 H (0.6-1.4) mg/dl POC Creatinine 1.9 H (0.6-1.3) mg/dl BUN/Creatinine Ratio 29.1 H (10-20) Glucose 144 H (70-99) mg/dl POC Glucose (other) 146 H (70-99) mg/dl Calcium (8.5-10.1) mg/dl POC Ioniz Calcium Doris 1.11 L (1.12-1.32) mmol/l AST 40 H (15-37) U/L Albumin 1.8 L (3.4-5.0) gm/dl Globulin 4.9 H (2.5-4.0) gm/dl Albumin/Globulin Ratio 0.4 L (0.9-2) Crossmatch 10/29/18 10/29/18 10/29/18 Range/Units 08:50 12:51 12:51 RBC (4.7-6.1) M/uL Hgb 8.8 L (14.0-18.0) g/dL POC Hgb (14.0-18.0) g/dl Hct (42-52) % POC Hct (42-52) % RDW Std Deviation (36.4-46.3) fL RDW Coeff of Jumana (11.5-14.5) % MPV (7.4-10.4) fL Lymph # (Auto) (1.2-3.4) K/uL POC Sodium (135-144) mEq/L Chloride 109 H (98-107) mmol/L POC BUN (7-18) mg/dl BUN 53 H (7-18) mg/dl Creatinine 1.86 H (0.6-1.4) mg/dl POC Creatinine (0.6-1.3) mg/dl BUN/Creatinine Ratio 28.5 H (10-20) Glucose 153 H (70-99) mg/dl POC Glucose (other) (70-99) mg/dl Calcium 8.4 L (8.5-10.1) mg/dl POC Ioniz Calcium Doris (1.12-1.32) mmol/l AST (15-37) U/L Albumin (3.4-5.0) gm/dl Globulin (2.5-4.0) gm/dl Albumin/Globulin Ratio (0.9-2) Crossmatch See Detail
--- NOTE | 2018-10-29 16:32 | Emergency Department Note ---
Entered by Magan Jauregui acting as a scribe for History of Present Illness General Chief complaint: GI Bleed Source: other (Nursing staff, [facility] Report) History of Present Illness Provider complaint: GI Bleed Onset (ago): minute(s) Location: buttocks Pain Consistency: + other (Blood in diaper noticed this morning) Quality: + other (Blood in diaper) Treatments prior to arrival: none The patient is a 77 year old male who presents to the Emergency Room from [facility] assisted living facility after the staff noticed his diaper was full of blood this morning. Upon arrival to the ED the patient is denying any abdominal pain or knowledge of blood per rectum. The patient was here in the ED two days ago and was diagnosed with a UTI. He was discharged back to [facility] with orders for IM Ceftriaxone. Home Medications Home Medications Medication Instructions Recorded Confirmed Type aspirin [Ecotrin Low Strength] 81 mg PO QAM 30 Days #30 tab 10/22/18 10/29/18 Rx carvedilol 18.75 mg PO BID 30 Days #180 tab 10/22/18 10/29/18 Rx furosemide [Lasix] 40 mg PO DAILY 30 Days #30 tab 10/22/18 10/29/18 Rx potassium chloride [Klor-Con M10] 20 meq PO DAILY 30 Days #60 tab 10/22/18 10/29/18 Rx acetaminophen 325 mg PO Q6H PRN 10/27/18 10/29/18 History ceftriaxone 1 g IV DAILY 10/29/18 10/29/18 History Allergies Allergy/AdvReac Type Severity Reaction Status Date / Time No Known Allergies Allergy Verified 10/29/18 09:24 Past Med/Surg History Medical History CKD (chronic kidney disease) GI bleed (Acute) Altered mental status (Acute) UTI (urinary tract infection) (Acute) Indwelling Moreno catheter present (Acute) Hypertension Bilateral pleural effusion Traumatic rhabdomyolysis (Resolved) Acute on chronic combined systolic and diastolic congestive heart failure Cardiomyopathy DVT prophylaxis Pneumonia (Resolved) Dystrophic nail (Chronic) Hydronephrosis Diabetes mellitus (Chronic) Family History Mother Heart attack Social History Communication Ability: Unable Beliefs That Will Affect Care: None marital status: Single Current Living Situation: Assisted Other Information That Helps Us Care for You: No Feels Safe at Home: Yes Safety Concerns: Feels Safe At This Time Smoking Status: Former smoker Hx Alcohol Use: No Hx Substance Use: No Review of Systems See HPI for pertinent positives & negatives. and A total of 10 systems reviewed and were otherwise negative Physical Exam Vital Signs Vital Signs - 24 hr 10/30/18 19:57 10/30/18 23:26 10/30/18 23:27 Temperature 36.7 C 36.7 C Temperature Source Oral Oral Pulse Rate - Sitting Pulse Rate Pulse Rate [Right Finger] 73 71 Respiratory Rate 18 20 Respiratory Effort / Characteristics Non-Labored Spontaneous Respiratory Depth Normal Respiratory Pattern Regular Blood Pressure - Sitting Blood Pressure [Left Arm] 149/68 H Blood Pressure [Right Arm] 165/78 H Blood Pressure Mean [Left Arm] 95 Blood Pressure Mean [Right Arm] 107 Blood Pressure Position [Left Arm] Sitting Blood Pressure Position [Right Arm] Lying Pulse Oximetry 96 96 Oxygen Delivery Method Room Air Room Air Room Air 10/31/18 02:22 10/31/18 05:13 10/31/18 07:25 Temperature 36.7 C 36.8 C Temperature Source Oral Oral Pulse Rate - Sitting Pulse Rate 69 Pulse Rate [Right Finger] 74 75 Respiratory Rate 22 16 Respiratory Effort / Characteristics Respiratory Depth Respiratory Pattern Blood Pressure - Sitting Blood Pressure [Left Arm] 160/74 H Blood Pressure [Right Arm] 170/79 H Blood Pressure Mean [Left Arm] 102 Blood Pressure Mean [Right Arm] 109 Blood Pressure Position [Left Arm] Lying Blood Pressure Position [Right Arm] Lying Pulse Oximetry 95 93 Oxygen Delivery Method Room Air Room Air 10/31/18 08:00 10/31/18 11:24 10/31/18 11:56 Temperature 36.3 C L Temperature Source Oral Pulse Rate - Sitting 74 Pulse Rate Pulse Rate [Right Finger] 69 Respiratory Rate 16 Respiratory Effort / Characteristics Non-Labored Spontaneous Respiratory Depth Normal Respiratory Pattern Regular Blood Pressure - Sitting 123/65 Blood Pressure [Left Arm] 163/73 H Blood Pressure [Right Arm] Blood Pressure Mean [Left Arm] 103 Blood Pressure Mean [Right Arm] Blood Pressure Position [Left Arm] Lying Blood Pressure Position [Right Arm] Pulse Oximetry 92 93 Oxygen Delivery Method Room Air Room Air 10/31/18 15:25 Temperature 36.4 C L Temperature Source Oral Pulse Rate - Sitting Pulse Rate Pulse Rate [Right Finger] 74 Respiratory Rate 16 Respiratory Effort / Characteristics Respiratory Depth Normal Respiratory Pattern Blood Pressure - Sitting Blood Pressure [Left Arm] Blood Pressure [Right Arm] 161/64 H Blood Pressure Mean [Left Arm] Blood Pressure Mean [Right Arm] 96 Blood Pressure Position [Left Arm] Blood Pressure Position [Right Arm] Sitting Pulse Oximetry 95 Oxygen Delivery Method Room Air Vital signs reviewed. General: Chronically ill-appearing older male, in no significant distress. HEENT: Pale conjunctiva. No scleral icterus, PERRLA, neck supple. Atraumatic. Mucous membranes are dry. Cardiovascular: Regular rate and rhythm, no extra sounds. Pulmonary: Clear to auscultation bilaterally, normal work of breathing. Abdomen: Soft, nontender, nondistended, positive bowel sounds. Musculoskeletal: Atraumatic, no peripheral edema. Neurologic: Patient awake, alert and able to answer some questions appropriately. Pleasantly confused. Follows commands. Skin: Warm, dry, no rash : Moreno catheter in place. RECTAL: Guiac positive melanotic stool. Course 0829: Past medical records reviewed. The patient was evaluated in room B6, and a complete history and physical examination were performed. 0927: I reviewed the patient's case with Azul Brooks - [facility] Hospitalist. She will evaluate the patient for further management. Administered Medications Aspirin (Ecotrin Ectab) 81 mg PO QAM [facility] Stop: 11/29/18 08:59 Last Admin: 10/31/18 07:58 Dose: Not Given Documented by: [id number] Admin: 10/30/18 09:46 Dose: Not Given Documented by: [id number] Carvedilol (Coreg) 18.75 mg PO BID [facility] Stop: 11/28/18 20:59 Last Admin: 10/31/18 07:58 Dose: 18.75 mg Documented by: [id number] Admin: 10/30/18 20:40 Dose: 18.75 mg Documented by: [id number] Admin: 10/30/18 10:17 Dose: Not Given Documented by: [id number] Admin: 10/29/18 19:41 Dose: 18.75 mg Documented by: [id number] Docusate Sodium (Colace) 100 mg PO HS [facility] Stop: 11/29/18 20:59 Last Admin: 10/30/18 20:40 Dose: 100 mg Documented by: [id number] Furosemide (Lasix) 20 mg PO QAM [facility] Stop: 11/30/18 11:59 Last Admin: 10/31/18 13:24 Dose: 20 mg Documented by: [id number] Ceftriaxone Sodium (Rocephin) 1,000 mg in 50 mls @ 100 mls/hr IV DAILY [facility]; Protocol Stop: 11/03/18 08:59 Last Infusion: 10/31/18 08:48 Dose: 0 mls/hr Documented by: [id number] Admin: 10/31/18 07:57 Dose: 100 mls/hr Documented by: [id number] Infusion: 10/30/18 10:37 Dose: 0 mls/hr Documented by: [id number] Admin: 10/30/18 10:03 Dose: 100 mls/hr Documented by: [id number] Pantoprazole Sodium 40 mg/ (Syringe) 10 mls @ 5 mls/min IV BID [facility] Stop: 11/28/18 20:59 Last Admin: 10/31/18 07:57 Dose: 5 mls/min Documented by: [id number] Admin: 10/30/18 20:39 Dose: 5 mls/min Documented by: [id number] Admin: 10/30/18 10:03 Dose: 5 mls/min Documented by: [id number] Admin: 10/29/18 19:42 Dose: 5 mls/min Documented by: [id number] Potassium Chloride (Klor-Con M10) 20 meq PO DAILY [facility] Stop: 11/29/18 08:59 Last Admin: 10/31/18 07:58 Dose: 20 meq Documented by: [id number] Admin: 10/30/18 10:17 Dose: Not Given Documented by: [id number] Sucralfate (Carafate) 1 gm PO QID [facility] Stop: 11/09/18 20:59 Last Admin: 10/31/18 17:18 Dose: 1 gm Documented by: [id number] Admin: 10/31/18 11:54 Dose: 1 gm Documented by: [id number] Admin: 10/31/18 07:58 Dose: 1 gm Documented by: [id number] Admin: 10/30/18 20:40 Dose: 1 gm Documented by: [id number] Discontinued Medications Pantoprazole Sodium (Protonix Bolus/Drip) 0 mls @ 1 mls/hr IV ONE STA Stop: 10/29/18 08:35 Last Admin: 10/29/18 09:13 Dose: Not Given Documented by: [id number] Pantoprazole Sodium 80 mg/ (Dextrose) 120 mls @ 400 mls/hr IV NOW ONE Stop: 10/29/18 08:51 Last Infusion: 10/29/18 09:14 Dose: 0 mls/hr Documented by: [id number] Admin: 10/29/18 08:55 Dose: 400 mls/hr Documented by: [id number] Pantoprazole Sodium 80 mg/ (Dextrose) 100 mls @ 400 mls/hr IV NOW ONE Stop: 10/29/18 08:48 Last Admin: 10/29/18 09:13 Dose: Not Given Documented by: [id number] Sodium Chloride (Nss) 500 mls @ 999 mls/hr IV .Q31M [facility] Stop: 10/29/18 09:15 Last Infusion: 10/29/18 09:38 Dose: 0 mls/hr Documented by: [id number] Admin: 10/29/18 09:07 Dose: 999 mls/hr Documented by: [id number] Pantoprazole Sodium 40 mg/ (Dextrose) 100 mls @ 20 mls/hr IV Q5H [facility] Stop: 11/28/18 08:44 Last Infusion: 10/29/18 12:28 Dose: 0 mls/hr Documented by: [id number] Admin: 10/29/18 09:03 Dose: 20 mls/hr Documented by: [id number] Ceftriaxone Sodium (Rocephin) 1,000 mg in 50 mls @ 100 mls/hr IV NOW STA Stop: 10/29/18 09:05 Last Infusion: 10/29/18 10:17 Dose: 0 mls/hr Documented by: [id number] Admin: 10/29/18 09:35 Dose: 100 mls/hr Documented by: [id number] Sodium Chloride (1/2 Nss) 1,000 mls @ 75 mls/hr IV .[id number] [facility] Stop: 11/28/18 12:44 Last Infusion: 10/29/18 16:24 Dose: 0 mls/hr Documented by: [id number] Admin: 10/29/18 13:24 Dose: 75 mls/hr Documented by: [id number] Sodium Chloride (Nss 1000ml) 1,000 mls @ 50 mls/hr IV .Q20H [facility] Stop: 11/29/18 08:14 Last Admin: 10/31/18 14:53 Dose: Not Given Documented by: [id number] Infusion: 10/31/18 10:00 Dose: 0 mls/hr Documented by: [id number] Infusion: 10/30/18 18:56 Dose: 50 mls/hr Documented by: [id number] Infusion: 10/30/18 10:52 Dose: 0 mls/hr Documented by: [id number] Admin: 10/30/18 10:04 Dose: 50 mls/hr Documented by: [id number] Furosemide 20 mg/ Syringe 2 mls @ 4 mls/min IV 0900 [facility] Stop: 10/30/18 14:00 Last Admin: 10/30/18 14:38 Dose: 4 mls/min Documented by: [id number] Medical Decision Making Differential Diagnosis Differential diagnosis: Etiologies such as esophagitis, variceal bleed, [place]er[place]ave�s, [place] tear, gastritis, peptic ulcer disease, AVM, inflammatory bowel disease, ischemia, diverticulosis, colitis, malignancy, coagulopathy, thrombocytopenia, fissure, hemorrhoid, epistaxis , as well as others were entertained. Medical Records Attestation: I reviewed the patient's medical records. Home Medications Current Medication List: was personally reviewed by me Laboratory Data Attestation: I reviewed the patient's lab results. Result diagrams: 10/31/18 06:46 10/31/18 06:46 Lab Results 10/29/18 10/29/18 10/29/18 Range/Units 08:49 08:50 08:50 WBC 5.40 (4.8-10.8) K/uL RBC 2.97 L (4.7-6.1) M/uL Hgb 8.9 L (14.0-18.0) g/dL POC Hgb 8.8 L (14.0-18.0) g/dl Hct 27.3 L (42-52) % POC Hct 26 L (42-52) % MCV 91.9 (80-100) fL MCH 30.0 (25-34) pg MCHC 32.6 (32-36) g/dL RDW Std Deviation 52.8 H (36.4-46.3) fL RDW Coeff of Jumana 15.7 H (11.5-14.5) % Plt Count 164 (130-400) K/uL MPV 10.9 H (7.4-10.4) fL Immature Gran % (Auto) 0.2 % Neut % (Auto) 68.8 % Lymph % (Auto) 15.6 % [place] % (Auto) 8.9 % Eos % (Auto) 5.4 % Baso % (Auto) 1.1 % Immature Gran # (Auto) 0.01 (0.00-0.02) K/uL Neut # (Auto) 3.72 (1.4-6.5) K/uL Lymph # (Auto) 0.84 L (1.2-3.4) K/uL [place] # (Auto) 0.48 (0.11-0.59) K/uL Eos # (Auto) 0.29 (0-0.5) K/uL Baso # (Auto) 0.06 (0-0.2) K/uL RBC Morphology Unremarkable PT 10.8 (9.0-12.0) Seconds INR 1.1 (0.9-1.1) APTT 21.1 (21.0-31.0) Seconds PTT Ratio 0.8 POC Sodium 146 H (135-144) mEq/L Sodium (136-145) mmol/L POC Potassium 4.3 (3.3-5.0) mEq/L Potassium (3.5-5.1) mmol/L POC Chloride 104 (101-112) mEq/L Chloride (98-107) mmol/L Carbon Dioxide (21-32) mmol/L POC Total CO2 31 (24-31) mEq/l Anion Gap (3-11) POC Anion Gap 16.0 (16-25) mmol/L POC BUN 46 H (7-18) mg/dl BUN (7-18) mg/dl Creatinine (0.6-1.4) mg/dl POC Creatinine 1.9 H (0.6-1.3) mg/dl Est Cr Clr Drug Dosing ml/min Est GFR ( Amer) Est GFR (Non-Af Amer) BUN/Creatinine Ratio (10-20) Glucose (70-99) mg/dl POC Glucose (70-99) POC Glucose (other) 146 H (70-99) mg/dl Lactate (0.4-2.0) mmol/L Calcium (8.5-10.1) mg/dl POC Ioniz Calcium Doris 1.11 L (1.12-1.32) mmol/l Phosphorus (2.5-4.9) mg/dl Magnesium (1.8-2.4) mg/dl Total Bilirubin (0.2-1) mg/dl AST (15-37) U/L ALT (12-78) U/L Alkaline Phosphatase (45-117) U/L Troponin I (0-0.045) ng/ml Total Protein (6.4-8.2) gm/dl Albumin (3.4-5.0) gm/dl Globulin (2.5-4.0) gm/dl Albumin/Globulin Ratio (0.9-2) Blood Type Blood Type Recheck Antibody Screen Crossmatch 10/29/18 10/29/18 10/29/18 Range/Units 08:50 08:50 08:55 WBC (4.8-10.8) K/uL RBC (4.7-6.1) M/uL Hgb (14.0-18.0) g/dL POC Hgb (14.0-18.0) g/dl Hct (42-52) % POC Hct (42-52) % MCV (80-100) fL MCH (25-34) pg MCHC (32-36) g/dL RDW Std Deviation (36.4-46.3) fL RDW Coeff of Jumana (11.5-14.5) % Plt Count (130-400) K/uL MPV (7.4-10.4) fL Immature Gran % (Auto) % Neut % (Auto) % Lymph % (Auto) % [place] % (Auto) % Eos % (Auto) % Baso % (Auto) % Immature Gran # (Auto) (0.00-0.02) K/uL Neut # (Auto) (1.4-6.5) K/uL Lymph # (Auto) (1.2-3.4) K/uL [place] # (Auto) (0.11-0.59) K/uL Eos # (Auto) (0-0.5) K/uL Baso # (Auto) (0-0.2) K/uL RBC Morphology PT (9.0-12.0) Seconds INR (0.9-1.1) APTT (21.0-31.0) Seconds PTT Ratio POC Sodium (135-144) mEq/L Sodium 143 (136-145) mmol/L POC Potassium (3.3-5.0) mEq/L Potassium 4.3 (3.5-5.1) mmol/L POC Chloride (101-112) mEq/L Chloride 108 H (98-107) mmol/L Carbon Dioxide 31 (21-32) mmol/L POC Total CO2 (24-31) mEq/l Anion Gap 4.0 (3-11) POC Anion Gap (16-25) mmol/L POC BUN (7-18) mg/dl BUN 56 H (7-18) mg/dl Creatinine 1.92 H (0.6-1.4) mg/dl POC Creatinine (0.6-1.3) mg/dl Est Cr Clr Drug Dosing 32.4 ml/min Est GFR ( Amer) 38.6 Est GFR (Non-Af Amer) 33.3 BUN/Creatinine Ratio 29.1 H (10-20) Glucose 144 H (70-99) mg/dl POC Glucose (70-99) POC Glucose (other) (70-99) mg/dl Lactate (0.4-2.0) mmol/L Calcium 8.6 (8.5-10.1) mg/dl POC Ioniz Calcium Doris (1.12-1.32) mmol/l Phosphorus (2.5-4.9) mg/dl Magnesium (1.8-2.4) mg/dl Total Bilirubin 0.3 (0.2-1) mg/dl AST 40 H (15-37) U/L ALT 47 (12-78) U/L Alkaline Phosphatase 100 (45-117) U/L Troponin I (0-0.045) ng/ml Total Protein 6.7 (6.4-8.2) gm/dl Albumin 1.8 L (3.4-5.0) gm/dl Globulin 4.9 H (2.5-4.0) gm/dl Albumin/Globulin Ratio 0.4 L (0.9-2) Blood Type AB Positive Blood Type Recheck AB Positive Antibody Screen NEGATIVE Crossmatch See Detail 10/29/18 10/29/18 10/29/18 Range/Units 10:45 12:51 12:51 WBC (4.8-10.8) K/uL RBC (4.7-6.1) M/uL Hgb 8.8 L (14.0-18.0) g/dL POC Hgb (14.0-18.0) g/dl Hct (42-52) % POC Hct (42-52) % MCV (80-100) fL MCH (25-34) pg MCHC (32-36) g/dL RDW Std Deviation (36.4-46.3) fL RDW Coeff of Jumana (11.5-14.5) % Plt Count (130-400) K/uL MPV (7.4-10.4) fL Immature Gran % (Auto) % Neut % (Auto) % Lymph % (Auto) % [place] % (Auto) % Eos % (Auto) % Baso % (Auto) % Immature Gran # (Auto) (0.00-0.02) K/uL Neut # (Auto) (1.4-6.5) K/uL Lymph # (Auto) (1.2-3.4) K/uL [place] # (Auto) (0.11-0.59) K/uL Eos # (Auto) (0-0.5) K/uL Baso # (Auto) (0-0.2) K/uL RBC Morphology PT (9.0-12.0) Seconds INR (0.9-1.1) APTT (21.0-31.0) Seconds PTT Ratio POC Sodium (135-144) mEq/L Sodium (136-145) mmol/L POC Potassium (3.3-5.0) mEq/L Potassium (3.5-5.1) mmol/L POC Chloride (101-112) mEq/L Chloride (98-107) mmol/L Carbon Dioxide (21-32) mmol/L POC Total CO2 (24-31) mEq/l Anion Gap (3-11) POC Anion Gap (16-25) mmol/L POC BUN (7-18) mg/dl BUN (7-18) mg/dl Creatinine (0.6-1.4) mg/dl POC Creatinine (0.6-1.3) mg/dl Est Cr Clr Drug Dosing ml/min Est GFR ( Amer) Est GFR (Non-Af Amer) BUN/Creatinine Ratio (10-20) Glucose (70-99) mg/dl POC Glucose (70-99) POC Glucose (other) (70-99) mg/dl Lactate 1.3 (0.4-2.0) mmol/L Calcium (8.5-10.1) mg/dl POC Ioniz Calcium Doris (1.12-1.32) mmol/l Phosphorus (2.5-4.9) mg/dl Magnesium (1.8-2.4) mg/dl Total Bilirubin (0.2-1) mg/dl AST (15-37) U/L ALT (12-78) U/L Alkaline Phosphatase (45-117) U/L Troponin I 0.025 (0-0.045) ng/ml Total Protein (6.4-8.2) gm/dl Albumin (3.4-5.0) gm/dl Globulin (2.5-4.0) gm/dl Albumin/Globulin Ratio (0.9-2) Blood Type Blood Type Recheck Antibody Screen Crossmatch 10/29/18 10/29/18 10/29/18 Range/Units 12:51 16:14 19:56 WBC (4.8-10.8) K/uL RBC (4.7-6.1) M/uL Hgb 8.0 L (14.0-18.0) g/dL POC Hgb (14.0-18.0) g/dl Hct (42-52) % POC Hct (42-52) % MCV (80-100) fL MCH (25-34) pg MCHC (32-36) g/dL RDW Std Deviation (36.4-46.3) fL RDW Coeff of Jumana (11.5-14.5) % Plt Count (130-400) K/uL MPV (7.4-10.4) fL Immature Gran % (Auto) % Neut % (Auto) % Lymph % (Auto) % [place] % (Auto) % Eos % (Auto) % Baso % (Auto) % Immature Gran # (Auto) (0.00-0.02) K/uL Neut # (Auto) (1.4-6.5) K/uL Lymph # (Auto) (1.2-3.4) K/uL [place] # (Auto) (0.11-0.59) K/uL Eos # (Auto) (0-0.5) K/uL Baso # (Auto) (0-0.2) K/uL RBC Morphology PT (9.0-12.0) Seconds INR (0.9-1.1) APTT (21.0-31.0) Seconds PTT Ratio POC Sodium (135-144) mEq/L Sodium 143 (136-145) mmol/L POC Potassium (3.3-5.0) mEq/L Potassium 4.1 (3.5-5.1) mmol/L POC Chloride (101-112) mEq/L Chloride 109 H (98-107) mmol/L Carbon Dioxide 30 (21-32) mmol/L POC Total CO2 (24-31) mEq/l Anion Gap 4.0 (3-11) POC Anion Gap (16-25) mmol/L POC BUN (7-18) mg/dl BUN 53 H (7-18) mg/dl Creatinine 1.86 H (0.6-1.4) mg/dl POC Creatinine (0.6-1.3) mg/dl Est Cr Clr Drug Dosing 33.5 ml/min Est GFR ( Amer) 40.1 Est GFR (Non-Af Amer) 34.6 BUN/Creatinine Ratio 28.5 H (10-20) Glucose 153 H (70-99) mg/dl POC Glucose 150 H (70-99) POC Glucose (other) (70-99) mg/dl Lactate (0.4-2.0) mmol/L Calcium 8.4 L (8.5-10.1) mg/dl POC Ioniz Calcium Doris (1.12-1.32) mmol/l Phosphorus (2.5-4.9) mg/dl Magnesium 2.4 (1.8-2.4) mg/dl Total Bilirubin (0.2-1) mg/dl AST (15-37) U/L ALT (12-78) U/L Alkaline Phosphatase (45-117) U/L Troponin I (0-0.045) ng/ml Total Protein (6.4-8.2) gm/dl Albumin (3.4-5.0) gm/dl Globulin (2.5-4.0) gm/dl Albumin/Globulin Ratio (0.9-2) Blood Type Blood Type Recheck Antibody Screen Crossmatch 10/29/18 10/29/18 10/30/18 Range/Units 19:56 20:12 07:05 WBC 5.09 (4.8-10.8) K/uL RBC 2.54 L (4.7-6.1) M/uL Hgb 7.7 L (14.0-18.0) g/dL POC Hgb (14.0-18.0) g/dl Hct 23.6 L (42-52) % POC Hct (42-52) % MCV 92.9 (80-100) fL MCH 30.3 (25-34) pg MCHC 32.6 (32-36) g/dL RDW Std Deviation 52.7 H (36.4-46.3) fL RDW Coeff of Jumana 15.8 H (11.5-14.5) % Plt Count 159 (130-400) K/uL MPV 10.6 H (7.4-10.4) fL Immature Gran % (Auto) % Neut % (Auto) % Lymph % (Auto) % [place] % (Auto) % Eos % (Auto) % Baso % (Auto) % Immature Gran # (Auto) (0.00-0.02) K/uL Neut # (Auto) (1.4-6.5) K/uL Lymph # (Auto) (1.2-3.4) K/uL [place] # (Auto) (0.11-0.59) K/uL Eos # (Auto) (0-0.5) K/uL Baso # (Auto) (0-0.2) K/uL RBC Morphology PT (9.0-12.0) Seconds INR (0.9-1.1) APTT (21.0-31.0) Seconds PTT Ratio POC Sodium (135-144) mEq/L Sodium (136-145) mmol/L POC Potassium (3.3-5.0) mEq/L Potassium (3.5-5.1) mmol/L POC Chloride (101-112) mEq/L Chloride (98-107) mmol/L Carbon Dioxide (21-32) mmol/L POC Total CO2 (24-31) mEq/l Anion Gap (3-11) POC Anion Gap (16-25) mmol/L POC BUN (7-18) mg/dl BUN (7-18) mg/dl Creatinine (0.6-1.4) mg/dl POC Creatinine (0.6-1.3) mg/dl Est Cr Clr Drug Dosing ml/min Est GFR ( Amer) Est GFR (Non-Af Amer) BUN/Creatinine Ratio (10-20) Glucose (70-99) mg/dl POC Glucose 216 H (70-99) POC Glucose (other) (70-99) mg/dl Lactate (0.4-2.0) mmol/L Calcium (8.5-10.1) mg/dl POC Ioniz Calcium Doris (1.12-1.32) mmol/l Phosphorus (2.5-4.9) mg/dl Magnesium (1.8-2.4) mg/dl Total Bilirubin (0.2-1) mg/dl AST (15-37) U/L ALT (12-78) U/L Alkaline Phosphatase (45-117) U/L Troponin I 0.021 (0-0.045) ng/ml Total Protein (6.4-8.2) gm/dl Albumin (3.4-5.0) gm/dl Globulin (2.5-4.0) gm/dl Albumin/Globulin Ratio (0.9-2) Blood Type Blood Type Recheck Antibody Screen Crossmatch 10/30/18 10/30/18 10/30/18 Range/Units 07:05 19:53 20:35 WBC (4.8-10.8) K/uL RBC (4.7-6.1) M/uL Hgb 10.4 L (14.0-18.0) g/dL POC Hgb (14.0-18.0) g/dl Hct 31.9 L (42-52) % POC Hct (42-52) % MCV (80-100) fL MCH (25-34) pg MCHC (32-36) g/dL RDW Std Deviation (36.4-46.3) fL RDW Coeff of Jumana (11.5-14.5) % Plt Count (130-400) K/uL MPV (7.4-10.4) fL Immature Gran % (Auto) % Neut % (Auto) % Lymph % (Auto) % [place] % (Auto) % Eos % (Auto) % Baso % (Auto) % Immature Gran # (Auto) (0.00-0.02) K/uL Neut # (Auto) (1.4-6.5) K/uL Lymph # (Auto) (1.2-3.4) K/uL [place] # (Auto) (0.11-0.59) K/uL Eos # (Auto) (0-0.5) K/uL Baso # (Auto) (0-0.2) K/uL RBC Morphology PT (9.0-12.0) Seconds INR (0.9-1.1) APTT (21.0-31.0) Seconds PTT Ratio POC Sodium (135-144) mEq/L Sodium 144 (136-145) mmol/L POC Potassium (3.3-5.0) mEq/L Potassium 3.7 (3.5-5.1) mmol/L POC Chloride (101-112) mEq/L Chloride 109 H (98-107) mmol/L Carbon Dioxide 29 (21-32) mmol/L POC Total CO2 (24-31) mEq/l Anion Gap 6.0 (3-11) POC Anion Gap (16-25) mmol/L POC BUN (7-18) mg/dl BUN 43 H (7-18) mg/dl Creatinine 1.69 H (0.6-1.4) mg/dl POC Creatinine (0.6-1.3) mg/dl Est Cr Clr Drug Dosing 33.7 ml/min Est GFR ( Amer) 45.0 Est GFR (Non-Af Amer) 38.9 BUN/Creatinine Ratio 25.2 H (10-20) Glucose 119 H (70-99) mg/dl POC Glucose 123 H (70-99) POC Glucose (other) (70-99) mg/dl Lactate (0.4-2.0) mmol/L Calcium 8.0 L (8.5-10.1) mg/dl POC Ioniz Calcium Doris (1.12-1.32) mmol/l Phosphorus 3.1 (2.5-4.9) mg/dl Magnesium 2.3 (1.8-2.4) mg/dl Total Bilirubin 0.3 (0.2-1) mg/dl AST 34 (15-37) U/L ALT 40 (12-78) U/L Alkaline Phosphatase 93 (45-117) U/L Troponin I (0-0.045) ng/ml Total Protein 6.3 L (6.4-8.2) gm/dl Albumin 1.7 L (3.4-5.0) gm/dl Globulin 4.6 H (2.5-4.0) gm/dl Albumin/Globulin Ratio 0.4 L (0.9-2) Blood Type Blood Type Recheck Antibody Screen Crossmatch 10/31/18 10/31/18 10/31/18 Range/Units 02:28 05:54 06:46 WBC (4.8-10.8) K/uL RBC (4.7-6.1) M/uL Hgb (14.0-18.0) g/dL POC Hgb (14.0-18.0) g/dl Hct (42-52) % POC Hct (42-52) % MCV (80-100) fL MCH (25-34) pg MCHC (32-36) g/dL RDW Std Deviation (36.4-46.3) fL RDW Coeff of Jumana (11.5-14.5) % Plt Count (130-400) K/uL MPV (7.4-10.4) fL Immature Gran % (Auto) % Neut % (Auto) % Lymph % (Auto) % [place] % (Auto) % Eos % (Auto) % Baso % (Auto) % Immature Gran # (Auto) (0.00-0.02) K/uL Neut # (Auto) (1.4-6.5) K/uL Lymph # (Auto) (1.2-3.4) K/uL [place] # (Auto) (0.11-0.59) K/uL Eos # (Auto) (0-0.5) K/uL Baso # (Auto) (0-0.2) K/uL RBC Morphology PT (9.0-12.0) Seconds INR (0.9-1.1) APTT (21.0-31.0) Seconds PTT Ratio POC Sodium (135-144) mEq/L Sodium 144 (136-145) mmol/L POC Potassium (3.3-5.0) mEq/L Potassium 3.6 (3.5-5.1) mmol/L POC Chloride (101-112) mEq/L Chloride 110 H (98-107) mmol/L Carbon Dioxide 29 (21-32) mmol/L POC Total CO2 (24-31) mEq/l Anion Gap 5.0 (3-11) POC Anion Gap (16-25) mmol/L POC BUN (7-18) mg/dl BUN 35 H (7-18) mg/dl Creatinine 1.65 H (0.6-1.4) mg/dl POC Creatinine (0.6-1.3) mg/dl Est Cr Clr Drug Dosing 35.1 ml/min Est GFR ( Amer) 46.4 Est GFR (Non-Af Amer) 40.0 BUN/Creatinine Ratio 21.2 H (10-20) Glucose 109 H (70-99) mg/dl POC Glucose 106 H 106 H (70-99) POC Glucose (other) (70-99) mg/dl Lactate (0.4-2.0) mmol/L Calcium 8.0 L (8.5-10.1) mg/dl POC Ioniz Calcium Doris (1.12-1.32) mmol/l Phosphorus 3.0 (2.5-4.9) mg/dl Magnesium 2.3 (1.8-2.4) mg/dl Total Bilirubin 0.5 (0.2-1) mg/dl AST 30 (15-37) U/L ALT 34 (12-78) U/L Alkaline Phosphatase 93 (45-117) U/L Troponin I (0-0.045) ng/ml Total Protein 6.7 (6.4-8.2) gm/dl Albumin 1.7 L (3.4-5.0) gm/dl Globulin 5.0 H (2.5-4.0) gm/dl Albumin/Globulin Ratio 0.3 L (0.9-2) Blood Type Blood Type Recheck Antibody Screen Crossmatch 10/31/18 Range/Units 06:46 WBC 5.26 (4.8-10.8) K/uL RBC 3.37 L (4.7-6.1) M/uL Hgb 10.2 L (14.0-18.0) g/dL POC Hgb (14.0-18.0) g/dl Hct 30.9 L (42-52) % POC Hct (42-52) % MCV 91.7 (80-100) fL MCH 30.3 (25-34) pg MCHC 33.0 (32-36) g/dL RDW Std Deviation 51.9 H (36.4-46.3) fL RDW Coeff of Jumana 15.8 H (11.5-14.5) % Plt Count 168 (130-400) K/uL MPV 10.7 H (7.4-10.4) fL Immature Gran % (Auto) % Neut % (Auto) % Lymph % (Auto) % [place] % (Auto) % Eos % (Auto) % Baso % (Auto) % Immature Gran # (Auto) (0.00-0.02) K/uL Neut # (Auto) (1.4-6.5) K/uL Lymph # (Auto) (1.2-3.4) K/uL [place] # (Auto) (0.11-0.59) K/uL Eos # (Auto) (0-0.5) K/uL Baso # (Auto) (0-0.2) K/uL RBC Morphology PT (9.0-12.0) Seconds INR (0.9-1.1) APTT (21.0-31.0) Seconds PTT Ratio POC Sodium (135-144) mEq/L Sodium (136-145) mmol/L POC Potassium (3.3-5.0) mEq/L Potassium (3.5-5.1) mmol/L POC Chloride (101-112) mEq/L Chloride (98-107) mmol/L Carbon Dioxide (21-32) mmol/L POC Total CO2 (24-31) mEq/l Anion Gap (3-11) POC Anion Gap (16-25) mmol/L POC BUN (7-18) mg/dl BUN (7-18) mg/dl Creatinine (0.6-1.4) mg/dl POC Creatinine (0.6-1.3) mg/dl Est Cr Clr Drug Dosing ml/min Est GFR ( Amer) Est GFR (Non-Af Amer) BUN/Creatinine Ratio (10-20) Glucose (70-99) mg/dl POC Glucose (70-99) POC Glucose (other) (70-99) mg/dl Lactate (0.4-2.0) mmol/L Calcium (8.5-10.1) mg/dl POC Ioniz Calcium Doris (1.12-1.32) mmol/l Phosphorus (2.5-4.9) mg/dl Magnesium (1.8-2.4) mg/dl Total Bilirubin (0.2-1) mg/dl AST (15-37) U/L ALT (12-78) U/L Alkaline Phosphatase (45-117) U/L Troponin I (0-0.045) ng/ml Total Protein (6.4-8.2) gm/dl Albumin (3.4-5.0) gm/dl Globulin (2.5-4.0) gm/dl Albumin/Globulin Ratio (0.9-2) Blood Type Blood Type Recheck Antibody Screen Crossmatch Imaging Data Attestation: I personally reviewed and interpreted this imaging study as follows: Radiologist's Impression: XR chest 1V portable CLINICAL HISTORY: GI bleed. COMPARISON STUDY: Chest CT October 10, 2018. Chest radiograph October 27, 2018. FINDINGS: Cardiomediastinal silhouette is stable. There is no pneumothorax. Bibasilar opacities have improved since exam of October 27, 2018. There is mild residual left basilar opacity. No evidence for pulmonary edema. There are possible trace bilateral pleural effusions. Incidental note is made of a calcified gallstone. IMPRESSION: 1. Interval improvement in bibasilar opacities. Mild residual left basilar opacity. 2. Trace bilateral pleural effusions. Electronically signed by: Noe Malik M.D. 10/29/2018 8:48 AM ECG Data Attestation: I personally reviewed and interpreted this ECG as follows: Rate (beats per minute): 77 Rhythm: normal sinus Findings: + other (LAD, poor quality baseline) and + nonspecific-ST abn (inf erior and lateral) Blood Pressure Blood Pressure Findings: Elevated blood pressure Blood Pressure Disposition: elevated BP felt to be situational MDM Narrative This pt was evaluated and appeared to be in no distress. Pt denies any pain at this time. PE reveals a large amount of dark red guaiac positive stool. PT H/H is trending down from most recent visit. Pt was type and crossed for 2 units to hold. Hgb is 8.9 currently. Pt was given IV protonix and NSS. Urine cx from previous visit is sensitive to ceftriaxone, and he did not receive his dose today. This was administered. Pt was d/w the hospitalist for further management. Impression & Plan GI bleed, UTI (urinary tract infection), Indwelling Moreno catheter present, Acute blood loss anemia Discharge Plan Visit Data *Final* Discharge Date/Time: 10/29/18 10:57 Chief Complaint: GI Bleed ED Provider: Marimar Kohli Discharge Problem: GI bleed, UTI (urinary tract infection), Indwelling Moreno catheter present, Acute blood loss anemia Patient Disposition: Admitted As Inpatient Discharge Instructions Interventions: ED Discharge Assessment Last Done: 10/29/18 10:57 The scribe's documentation has been prepared under my direction and personally reviewed by me in its entirety. I confirm that the note above accurately r eflects all work, treatment, procedures, and medical decision making performed by me.
[2018-10-29] MEDS: CARVEDILOL 6.25 MG TAB PO SCH (19:41)
[2018-10-29] MEDS: PANTOprazole 40 MG in SYRINGE 0 ML IV SCH (19:42)
--- NOTE | 2018-10-29 21:26 | CT Scan Report ---
ABDOMEN AND PELVIS CT WITH ORAL CONTRAST CT DOSE: 307.60 mGy.cm HISTORY: Acute GI bleed GI bleed TECHNIQUE: Multiaxial CT images of the abdomen and pelvis were performed following the use of oral co ntrast. A dose lowering technique was utilized adhering to the principles of ALARA. COMPARISON STUDY: CT abdomen and pelvis 10/10/2018. FINDINGS: Small left and trace right pleural effusions, decreased in size from comparison. Left greater than ri ght bibasilar consolidative and groundglass densities suggestive of probable atelectasis. No pneumato sis or pneumoperitoneum. Imaged inferior cardiac chambers are enlarged. Decreased attenuation of the cardiac blood pool suggests anemia. Large gallstone within the gallbladder lumen redemonstrated. No CT evidence of acute cholecystitis. U nenhanced liver, spleen, pancreas and adrenal glands appear unremarkable. Moderate left-sided hydrour eteronephrosis with unchanged left renal atrophy. Urothelial thickening about the left renal pelvis a nd left ureter is noted with dilation of the left ureter extending to the level of the urinary bladde r. Nonspecific bilateral perinephric stranding. No ureteral calculi or obstructive uropathy. Right ki dney is unremarkable. Marked circumferential wall thickening of the bladder with prostamegaly. Air an d suggested debris within the urinary bladder noted. No aortic aneurysm. No small bowel obstruction. Moderate volume of formed stool about the distal colo n and rectum with perirectal inflammation and rectal wall thickening. Terminal ileum and appendix javier ear normal. Tiny fat filled periumbilical hernia. Bilateral gynecomastia. Mild generalized body wall edema. Multilevel facet arthrosis with spondylitic spurring. Grade 1 anterolisthesis L5 on S1 with re mote appearing left L5 pars defect. Lumbar levoscoliosis. IMPRESSION: 1. Constipation with rectal wall thickening and perirectal inflammatory stranding suggestive of sterc oral proctitis. 2. Decreased size of the pleural effusions with decreased body wall edema with resolution of the abdo jaelyn pelvic ascites. 3. Moderate left-sided hydroureteronephrosis with associated urothelial thickening and left renal atr ophy appears unchanged. 4. Prostamegaly with urinary bladder wall thickening and suggestion of urinary bladder debris with sc attered foci of intraluminal air. Correlate with urinalysis. 5. Cholelithiasis without CT evidence of acute cholecystitis. 6. Additional findings as above. Electronically signed by: Aiden Upton M.D. 10/29/2018 9:25 PM
[2018-10-30 07:16] LABS: Hematocrit (blood only) 23.6 % (42-52); Hemoglobin 7.7 g/dL (14.0-18.0); Mean Corpuscular Hgb Conc 32.6 g/dL (32-36); Mean Corpuscular Volume 92.9 fL (80-100); Mean Platelet Volume 10.6 fL (7.4-10.4); Platelet Count 159 K/uL (130-400); RDW Coefficient of Variation 15.8 % (11.5-14.5); RDW Standard Deviation 52.7 fL (36.4-46.3); Red Blood Count 2.54 M/uL (4.7-6.1); White Blood Count 5.09 K/uL (4.8-10.8)
[2018-10-30 07:56] LABS: Albumin Level 1.7 gm/dl (3.4-5.0); BUN Creatinine Ratio 25.2 (10-20); Creatinine Clr Calc Pharmacy 33.7 ml/min; Est GFR (Non-African American) 38.9; Magnesium 2.3 mg/dl (1.8-2.4); Potassium 3.7 mmol/L (3.5-5.1)
[2018-10-30 07:59] LABS: Albumin Globulin Ratio 0.4 (0.9-2); Bilirubin,Total 0.3 mg/dl (0.2-1); Globulin 4.6 gm/dl (2.5-4.0); Phosphorus 3.1 mg/dl (2.5-4.9); Total Protein 6.3 gm/dl (6.4-8.2)
[2018-10-30] MEDS ORDERED: SODIUM CHLORIDE 0.9% 250 ML IV PRN (08:29)
[2018-10-30] MEDS ORDERED: FUROSEMIDE 20 MG in SYRINGE 0 ML IV SCH (09:00)
[2018-10-30] MEDS: ASPIRIN 81 MG ECTAB PO SCH (09:46)
[2018-10-30] MEDS: PANTOprazole 40 MG in SYRINGE 0 ML IV SCH ×2 (10:03→20:39)
[2018-10-30] MEDS: cefTRIAXone SODIUM 1,000 MG/50 ML BAG IV SCH (10:03)
[2018-10-30] MEDS: CARVEDILOL 6.25 MG TAB PO SCH ×3 (10:04→20:40)
[2018-10-30] MEDS: SODIUM CHLORIDE 0.9% 1000ML 1,000 ML IV SCH (10:04)
[2018-10-30] MEDS: POTASSIUM CHLORIDE 10 MEQ TABCR PO SCH ×2 (10:04→10:17)
--- NOTE | 2018-10-30 15:30 | Hospitalist Progress Note ---
Date of Service October 30, 2018 Assessment & Plan (1) GI bleed: (2) Altered mental status: (3) Acute on chronic combined systolic and diastolic congestive heart failure: (4) Cardiomyopathy: (5) Elevated troponin: (6) UTI (urinary tract infection): (7) Indwelling Moreno catheter present: (8) Hypertension: (9) Urinary retention: (10) Diabetes mellitus: (11) CKD (chronic kidney disease): (12) Dysphagia: (13) DVT prophylaxis: 77 year-old male with a history of severe CHF and TERE admitted on October 29, 2018 with acute blood loss anemia, heme positive stool and BRBPR. acute blood loss anemia, heme positive stool and BRBPR. Hemoglobin continues to drop, today's hemoglobin 7.7 from 8, Transfuse 2 units, and Lasix in the middle between her transfusion, Continue Protonix 40 mg BID. GI input appreciated, no invasive GI work up at this point. Continue to monitor H&H and for s/sx of overt GIB. Possible need to consider EGD. Keep NPO for now. Altered mental status upon admission, resolved, Acute on chronic combined systolic and diastolic congestive heart failure: Echo completed during last admission- EF 25-30% with severe global hypokinesis; for fluid overload, Appears to be euvolemic currently. No JVD, no edema BLE. Strict I/Os, daily weights Cardiomyopathy with Elevated troponin: E. coli Uti, Continue ceftriaxone IV, will switch to oral antibiotic after able to tolerate diet Indwelling Moreno catheter present, Changed in the ER on 10/27/18, continue for now. Hypertension, CKD, dysphagia, diabetic, continue current care, Possible choking, speech evaluation was ordered GI prophylaxis is covered, DVT prophylaxis is related to contraindicated, Subjective Generally doing the same, getting blood transfusion, awake alert orientated, still n.p.o., nursing staff report he was coughing possible choking, Constitutional: + fatigue and + weakness; no fever and no chills Ear, Nose, Mouth, Throat: positive dry mouth and no sore throat Respiratory: no cough, no dyspnea and no dyspnea on exertion Cardiovascular: + edema; no chest pain and no orthopnea Gastrointestinal: no abdominal pain, no nausea, no vomiting, no BM Genitourinary (Male): no dysuria Endocrine: + fatigue Physical Exam Vital Signs (Past 24 Hours): Last Vital Signs Temp 36.6 C 10/30/18 15:24 Pulse 71 10/30/18 15:24 Resp 16 10/30/18 15:24 BP 157/71 H 10/30/18 15:24 Pulse Ox 95 10/30/18 15:24 Physical Exam: General: awake, alert, no apparent distress, mild pale, Head: Normocephalic, atraumatic HHENT: PERRL, EOMI, no pharyngeal exudate, mucous membranes moist, + residual food in mouth, + poor dentition Chest: Diminished slightly at bases, no adventitious breath sounds Cardiac: Regular rate and rhythm, + soft SANJUANITA, no JVD, normal peripheral pulses, good capillary refill Abdominal: NABS x 4 quadrants, soft, nontender to palpation, no rebound, guarding or tenderness Extremities: + chronic skin changes, Normal inspection, no peripheral edema or erythema, Neuro: Awake, oriented to self, asks if he is in the hospital, not able to answer the year, no motor deficits, speech is clear but slow, no peripheral sensory deficits Results & Data Laboratory Results Laboratory Results - last 24 hr 10/29/18 10/29/18 10/29/18 08:50 16:14 19:56 WBC RBC Hgb 8.0 L Hct MCV MCH MCHC RDW Std Deviation RDW Coeff of Jumana Plt Count MPV Sodium Potassium Chloride Carbon Dioxide Anion Gap BUN Creatinine Est Cr Clr Drug Dosing Est GFR ( Amer) Est GFR (Non-Af Amer) BUN/Creatinine Ratio Glucose POC Glucose 150 H Calcium Phosphorus Magnesium Total Bilirubin AST ALT Alkaline Phosphatase Troponin I Total Protein Albumin Globulin Albumin/Globulin Ratio Blood Type AB Positive Antibody Screen NEGATIVE Crossmatch See Detail 10/29/18 10/29/18 10/30/18 19:56 20:12 07:05 WBC 5.09 RBC 2.54 L Hgb 7.7 L Hct 23.6 L MCV 92.9 MCH 30.3 MCHC 32.6 RDW Std Deviation 52.7 H RDW Coeff of Jumana 15.8 H Plt Count 159 MPV 10.6 H Sodium Potassium Chloride Carbon Dioxide Anion Gap BUN Creatinine Est Cr Clr Drug Dosing Est GFR ( Amer) Est GFR (Non-Af Amer) BUN/Creatinine Ratio Glucose POC Glucose 216 H Calcium Phosphorus Magnesium Total Bilirubin AST ALT Alkaline Phosphatase Troponin I 0.021 Total Protein Albumin Globulin Albumin/Globulin Ratio Blood Type Antibody Screen Crossmatch 10/30/18 07:05 WBC RBC Hgb Hct MCV MCH MCHC RDW Std Deviation RDW Coeff of Jumana Plt Count MPV Sodium 144 Potassium 3.7 Chloride 109 H Carbon Dioxide 29 Anion Gap 6.0 BUN 43 H Creatinine 1.69 H Est Cr Clr Drug Dosing 33.7 Est GFR ( Amer) 45.0 Est GFR (Non-Af Amer) 38.9 BUN/Creatinine Ratio 25.2 H Glucose 119 H POC Glucose Calcium 8.0 L Phosphorus 3.1 Magnesium 2.3 Total Bilirubin 0.3 AST 34 ALT 40 Alkaline Phosphatase 93 Troponin I Total Protein 6.3 L Albumin 1.7 L Globulin 4.6 H Albumin/Globulin Ratio 0.4 L Blood Type Antibody Screen Crossmatch (1) GI bleed GI bleed type/associated pathology: unspecified gastrointestinal hemorrhage ty pe Qualified Code(s): K92.2 - Gastrointestinal hemorrhage, unspecified (2) Altered mental status Altered mental status type: delirium Qualified Code(s): R41.0 - Disorientation, unspecified (3) UTI (urinary tract infection) Encounter type: subsequent encounter Indwelling urinary catheter type: in dwelling urethral catheter Urinary tract infection type: catheter-associated UTI Qualified Code(s): T83.511D - Infection and inflammatory reaction due to indwelling urethral catheter, subsequent encounter; N39.0 - Urinary tract infection, site not specified
[2018-10-30 20:01] LABS: Hematocrit (blood only) 31.9 % (42-52); Hemoglobin 10.4 g/dL (14.0-18.0)
[2018-10-30] MEDS: SUCRALFATE 1 GM/10 ML UDC PO SCH (20:40)
[2018-10-30] MEDS: DOCUSATE SODIUM 100 MG CAP PO SCH (20:40)
--- NOTE | 2018-10-30 21:03 | Progress Note ---
DATE: 10/30/2018 SUBJECTIVE: I had the pleasure of seeing Pollo Arana today at his bedside. He was resting comfortably, easily awoken. He states that he is not having any abdominal pain. He did have multiple bowel movements yesterday per the patient as well as per nursing staff. He denies any abdominal pain, fevers, chills, melena, hematochezia, or hematemesis at present. He has no further complaints. PHYSICAL EXAMINATION: VITAL SIGNS: Temp 36.7, pulse 72, respirations 16, blood pressure 164/78, pulse ox 96% on room air. GENERAL: Chronic ill appearing, noted pallor. ABDOMEN: Soft, nontender, nondistended. Positive bowel sounds. LABORATORY STUDIES: From today include, he had an H and H 7.[address] scan of the abdomen and pelvis with p.o. contrast from yesterday showed constipation with rectal wall thickening and perirectal inflammatory stranding suggestive of stercoral proctitis, decreased size of pleural effusions, moderate left-sided hydroureteronephrosis with urothelial thickening, and left renal atrophy, prostatomegaly, urinary bladder wall thickening, cholelithiasis without CT evidence of acute cholecystitis. IMPRESSION: A 77-year-old male with severe congestive heart failure, acute kidney injury, admitted for acute blood loss anemia with heme positive stool and bright red blood per rectum. PLAN: I believe the most likely cause of the patient's heme positive stools and bright red blood per rectum is a stercoral ulcer seen on CT imaging. I would not recommend that the patient undergo any invasive workup at this time due to his multiple medical comorbidities. I would continue him on Protonix 40 mg b.i.d. I would also add Carafate 1 g p.o. q.i.d. a.c. and at bedtime to his regimen as well as Colace 100 mg p.o. daily. I would advance his diet as tolerated and continue supportive medical management. Once again, thanks for allowing me to participate in the care of this patient. If you have any further questions, please do not hesitate in contacting me.
[2018-10-31 07:07] LABS: Hematocrit (blood only) 30.9 % (42-52); Hemoglobin 10.2 g/dL (14.0-18.0); Mean Corpuscular Volume 91.7 fL (80-100); Mean Platelet Volume 10.7 fL (7.4-10.4); Platelet Count 168 K/uL (130-400); RDW Coefficient of Variation 15.8 % (11.5-14.5); RDW Standard Deviation 51.9 fL (36.4-46.3); Red Blood Count 3.37 M/uL (4.7-6.1); White Blood Count 5.26 K/uL (4.8-10.8)
[2018-10-31 07:38] LABS: Albumin Level 1.7 gm/dl (3.4-5.0); BUN Creatinine Ratio 21.2 (10-20); Creatinine Clr Calc Pharmacy 35.1 ml/min; Est GFR (African American) 46.4; Magnesium 2.3 mg/dl (1.8-2.4); Potassium 3.6 mmol/L (3.5-5.1)
[2018-10-31 07:41] LABS: Albumin Globulin Ratio 0.3 (0.9-2); Bilirubin,Total 0.5 mg/dl (0.2-1); Total Protein 6.7 gm/dl (6.4-8.2)
[2018-10-31] MEDS: cefTRIAXone SODIUM 1,000 MG/50 ML BAG IV SCH (07:57)
[2018-10-31] MEDS: PANTOprazole 40 MG in SYRINGE 0 ML IV SCH ×2 (07:57→20:54)
[2018-10-31] MEDS: POTASSIUM CHLORIDE 10 MEQ TABCR PO SCH (07:58)
[2018-10-31] MEDS: CARVEDILOL 6.25 MG TAB PO SCH ×2 (07:58→20:55)
[2018-10-31] MEDS: ASPIRIN 81 MG ECTAB PO SCH (07:58)
[2018-10-31] MEDS: SUCRALFATE 1 GM/10 ML UDC PO SCH ×4 (07:58→20:55)
--- NOTE | 2018-10-31 10:03 | Gastroenterology Progress Note ---
Date of Service October 31, 2018 Assessment & Plan (1) Acute blood loss anemia: (2) Bright red blood per rectum: (3) Heme positive stool: Patient is a 77 year-old male who presented with acute blood loss anemia, heme positive stool and BRBPR, most likely secondary to stercoral ulcer of rectum seen on CT imaging. 1) Continue Protonix 40 mg by mouth twice daily 2) Added Carafate 1 g by mouth QID 3) Advance diet as tolerated 4) No overt GI blood loss today, and no plans for invasive workup due to multiple medical comorbidities 5) H/H stable, following transfusion of 2 u PRBC 6) Continue supportive care. Thank you for allowing us to participate in the care of this patient. If you have any questions or concerns, please do not hesitate to contact us. (4) Stercoral ulcer of rectum: Subjective Mr. Arana is sitting up in bed drinking liquids with aid of Speech therapist. He states that he has no abd pain, and denies any vomiting or bright red blood per rectum. He states he is, "feeling a little better." No further complaints Physical Exam Vital Signs (Past 24 Hours): Last Vital Signs Temp 36.8 C 10/31/18 07:25 Pulse 75 10/31/18 07:25 Resp 16 10/31/18 07:25 BP 170/79 H 10/31/18 07:25 Pulse Ox 93 10/31/18 07:25 Constitutional: + ill appearing (Chronic) Gastrointestinal (Abdomen): normal bowel sounds, soft, nontender, no hepatosplenomegaly Inspection/Auscultation: + abdomen distended
[2018-10-31] MEDS ORDERED: HydrALAZINE HCL 20 MG/ML VIAL IV PRN (12:00)
[2018-10-31] MEDS ORDERED: MENTHOL-ZINC OXIDE 360 APPLN/120 GM TUBE EXT PRN (12:45)
[2018-10-31] MEDS: FUROSEMIDE 20 MG TAB PO SCH (13:24)
[2018-10-31] MEDS: SODIUM CHLORIDE 0.9% 1000ML 1,000 ML IV SCH (14:53)
--- NOTE | 2018-10-31 16:05 | Hospitalist Progress Note ---
Date of Service October 31, 2018 Assessment & Plan (1) GI bleed: (2) Altered mental status: (3) Acute on chronic combined systolic and diastolic congestive heart failure: (4) Cardiomyopathy: (5) Elevated troponin: (6) UTI (urinary tract infection): (7) Indwelling Moreno catheter present: (8) Hypertension: (9) Urinary retention: (10) Diabetes mellitus: (11) CKD (chronic kidney disease): (12) Dysphagia: (13) DVT prophylaxis: 77 year-old male with a history of severe CHF and TERE admitted on October 29, 2018 with acute blood loss anemia, heme positive stool and BRBPR. acute blood loss anemia, resolving improving most likely secondary to stercoral ulcer of rectum seen on CT imaging. H/H stable, following transfusion of 2 u PRBC GI input appreciated, Continue Protonix 40 mg by mouth twice daily, Carafate 1 g by mouth QID, Advance diet as tolerated GI no plans for invasive workup due to multiple medical comorbidities Continue supportive care. Altered mental status upon admission, resolved, Acute on chronic combined systolic and diastolic congestive heart failure: Echo completed during last admission- EF 25-30% with severe global hypokinesis; Appears to be euvolemic currently. No JVD, no edema BLE. Strict I/Os, daily weights Cardiomyopathy with Elevated troponin: E. coli Uti, Continue ceftriaxone IV, will switch to oral antibiotic after able to tolerate diet Indwelling Moreno catheter present, Changed in the ER on 10/27/18, continue for now. Hypertension, CKD, dysphagia, diabetic, stable, continue current care, GI prophylaxis is covered, DVT prophylaxis is related to contraindicated Increase activity PTOT, and assistant case manager for discharge plan Subjective Generally doing better, Beach clear him , start clear liquid diet, awake alert orientated Constitutional: + fatigue and + weakness; no fever and no chills Ear, Nose, Mouth, Throat: positive dry mouth and no sore throat Respiratory: no cough, no dyspnea and no dyspnea on exertion Cardiovascular: + edema; no chest pain and no orthopnea Gastrointestinal: no abdominal pain, no nausea, no vomiting, Genitourinary (Male): no dysuria Physical Exam Vital Signs (Past 24 Hours): Last Vital Signs Temp 36.4 C L 10/31/18 15:25 Pulse 74 10/31/18 15:25 Resp 16 10/31/18 15:25 BP 161/64 H 10/31/18 15:25 Pulse Ox 95 10/31/18 15:25 Physical Exam: General: awake, alert, no apparent distress, no more pale, Head: Normocephalic, atraumatic HHENT: PERRL, EOMI, no pharyngeal exudate, mucous membranes moist, + residual food in mouth, + poor dentition Chest: Diminished slightly at bases, no adventitious breath sounds Cardiac: Regular rate and rhythm, + soft SANJUANITA, no JVD, normal peripheral pulses, good capillary refill Abdominal: NABS x 4 quadrants, soft, nontender to palpation, no rebound, guarding or tenderness Extremities: chronic skin changes, Normal inspection, no peripheral edema or erythema, Neuro: Awake, oriented to self, asks if he is in the hospital, not able to answer the year, no motor deficits, speech is clear but slow, no peripheral sensory deficits Results & Data Laboratory Results Laboratory Results - last 24 hr 10/29/18 10/30/18 10/30/18 08:50 19:53 20:35 WBC RBC Hgb 10.4 L Hct 31.9 L MCV MCH MCHC RDW Std Deviation RDW Coeff of Jumana Plt Count MPV Sodium Potassium Chloride Carbon Dioxide Anion Gap BUN Creatinine Est Cr Clr Drug Dosing Est GFR ( Amer) Est GFR (Non-Af Amer) BUN/Creatinine Ratio Glucose POC Glucose 123 H Calcium Phosphorus Magnesium Total Bilirubin AST ALT Alkaline Phosphatase Total Protein Albumin Globulin Albumin/Globulin Ratio Crossmatch See Detail 10/31/18 10/31/18 10/31/18 02:28 05:54 06:46 WBC RBC Hgb Hct MCV MCH MCHC RDW Std Deviation RDW Coeff of Jumana Plt Count MPV Sodium 144 Potassium 3.6 Chloride 110 H Carbon Dioxide 29 Anion Gap 5.0 BUN 35 H Creatinine 1.65 H Est Cr Clr Drug Dosing 35.1 Est GFR ( Amer) 46.4 Est GFR (Non-Af Amer) 40.0 BUN/Creatinine Ratio 21.2 H Glucose 109 H POC Glucose 106 H 106 H Calcium 8.0 L Phosphorus 3.0 Magnesium 2.3 Total Bilirubin 0.5 AST 30 ALT 34 Alkaline Phosphatase 93 Total Protein 6.7 Albumin 1.7 L Globulin 5.0 H Albumin/Globulin Ratio 0.3 L Crossmatch 10/31/18 06:46 WBC 5.26 RBC 3.37 L Hgb 10.2 L Hct 30.9 L MCV 91.7 MCH 30.3 MCHC 33.0 RDW Std Deviation 51.9 H RDW Coeff of Jumana 15.8 H Plt Count 168 MPV 10.7 H Sodium Potassium Chloride Carbon Dioxide Anion Gap BUN Creatinine Est Cr Clr Drug Dosing Est GFR ( Amer) Est GFR (Non-Af Amer) BUN/Creatinine Ratio Glucose POC Glucose Calcium Phosphorus Magnesium Total Bilirubin AST ALT Alkaline Phosphatase Total Protein Albumin Globulin Albumin/Globulin Ratio Crossmatch (1) UTI (urinary tract infection) Encounter type: subsequent encounter Indwelling urinary catheter type: indwelling urethral catheter Urinary tract infection type: catheter-associated UTI Qualified Code(s): T83.511D - Infection and inflammatory reaction due to indwelling urethral catheter, subsequent encounter; N39.0 - Urinary tract infection, site not specified (2) GI bleed GI bleed type/associated pathology: unspecified gastrointestinal hemorrhage type Qualified Code(s): K92.2 - Gastrointestinal hemorrhage, unspecified (3) Altered mental status Altered mental status type: delirium Qualified Code(s): R41.0 - Disorientation, unspecified
[2018-10-31] MEDS: DOCUSATE SODIUM 100 MG CAP PO SCH (20:55)
[2018-11-01 07:25] LABS: Hematocrit (blood only) 31.7 % (42-52); Hemoglobin 10.6 g/dL (14.0-18.0); Mean Corpuscular Hgb Conc 33.4 g/dL (32-36); Mean Corpuscular Volume 92.2 fL (80-100); Mean Platelet Volume 11.3 fL (7.4-10.4); Platelet Count 179 K/uL (130-400); RDW Coefficient of Variation 15.7 % (11.5-14.5); RDW Standard Deviation 51.5 fL (36.4-46.3); Red Blood Count 3.44 M/uL (4.7-6.1); White Blood Count 5.62 K/uL (4.8-10.8)
[2018-11-01] MEDS: POTASSIUM CHLORIDE 10 MEQ TABCR PO SCH (07:40)
[2018-11-01] MEDS: cefTRIAXone SODIUM 1,000 MG/50 ML BAG IV SCH (07:40)
[2018-11-01] MEDS: PANTOprazole 40 MG in SYRINGE 0 ML IV SCH (07:40)
[2018-11-01] MEDS: CARVEDILOL 6.25 MG TAB PO SCH ×2 (07:41→21:26)
[2018-11-01] MEDS: ASPIRIN 81 MG ECTAB PO SCH (07:41)
[2018-11-01] MEDS: SUCRALFATE 1 GM/10 ML UDC PO SCH ×4 (07:41→21:25)
[2018-11-01 08:17] LABS: Albumin Globulin Ratio 0.4 (0.9-2); Albumin Level 1.7 gm/dl (3.4-5.0); BUN Creatinine Ratio 14.8 (10-20); Bilirubin,Total 0.5 mg/dl (0.2-1); Calcium 7.8 mg/dl (8.5-10.1); Creatinine Clr Calc Pharmacy 38.4 ml/min; Est GFR (African American) 51.6; Est GFR (Non-African American) 44.5; Globulin 4.8 gm/dl (2.5-4.0); Magnesium 2.1 mg/dl (1.8-2.4); Potassium 3.3 mmol/L (3.5-5.1); Total Protein 6.5 gm/dl (6.4-8.2)
[2018-11-01] MEDS: FUROSEMIDE 20 MG TAB PO SCH (09:46)
[2018-11-01] MEDS: AMLODIPINE BESYLATE 5 MG TAB PO SCH (09:46)
[2018-11-01] MEDS ORDERED: POTASSIUM CHLORIDE 10 MEQ TABCR PO STA (11:42)
--- NOTE | 2018-11-01 11:48 | Hospitalist Progress Note ---
Date of Service November 01, 2018 Assessment & Plan (1) GI bleed: (2) Altered mental status: (3) Acute on chronic combined systolic and diastolic congestive heart failure: (4) Cardiomyopathy: (5) Elevated troponin: (6) UTI (urinary tract infection): (7) Indwelling Moreno catheter present: (8) Hypertension: (9) Urinary retention: (10) Diabetes mellitus: (11) CKD (chronic kidney disease): (12) Dysphagia: (13) DVT prophylaxis: 77 year-old male with a history of severe CHF and TERE admitted on October 29, 2018 with acute blood loss anemia, heme positive stool and BRBPR. 2 unit of blood transfusion has been stable improving acute blood loss anemia,Continues stable improving most likely secondary to stercoral ulcer of rectum seen on CT imaging. H/H stable, following transfusion of 2 u PRBC GI input appreciated, Continue Protonix 40 mg by mouth twice daily, Carafate 1 g by mouth QID, Advance diet as tolerated, Patient has been tolerate diet fair GI no plans for invasive workup due to multiple medical comorbidities Continue supportive care. Altered mental status upon admission, resolved, Acute on chronic combined systolic and diastolic congestive heart failure: Echo completed during last admission- EF 25-30% with severe global hypokinesis; euvolemic currently. No JVD, no edema BLE. Strict I/Os, daily weights Cardiomyopathy with Elevated troponin: Stable E. coli Uti, Continue ceftriaxone IV, will switch to oral antibiotic Keflex today Indwelling Moreno catheter present, Changed in the ER on 10/27/18, continue for now. Hypertension, CKD, dysphagia, Diet per speech therapy diabetic, stable, continue current care, GI prophylaxis is covered, DVT prophylaxis is related to contraindicated Increase activity PTOT, and patient case manager for discharge plan, Patient from homicide, possible discharge in 1 or 2 days Subjective Continue doing good, tolerate diet, awake alert orientated, Denied bright red blood per rectum, Constitutional: + fatigue and + weakness; no fever and no chills Ear, Nose, Mouth, Throat: positive dry mouth and no sore throat Respiratory: no cough, no dyspnea and no dyspnea on exertion Cardiovascular: + edema; no chest pain and no orthopnea Gastrointestinal: no abdominal pain, no nausea, no vomiting, Genitourinary (Male): no dysuria Physical Exam Vital Signs (Past 24 Hours): Last Vital Signs Temp 36.7 C 03/04/19 07:07 Pulse 69 11/01/18 08:00 Resp 22 11/01/18 07:07 BP 174/85 H 11/01/18 07:07 Pulse Ox 97 11/01/18 07:07 Physical Exam: General: awake, alert, no apparent distress, Looks much better and then 2 days ago Head: Normocephalic, atraumatic HHENT: PERRL, EOMI, no pharyngeal exudate, mucous membranes moist, poor dentition Chest: Diminished slightly at bases, no adventitious breath sounds Cardiac: Regular rate and rhythm, + soft SANJUANITA, no JVD, normal peripheral pulses, good capillary refill Abdominal: NABS x 4 quadrants, soft, nontender to palpation, no rebound, guarding or tenderness Extremities: chronic skin changes, Normal inspection, no peripheral edema or erythema, Neuro: Awake, oriented to self, asks if he is in the hospital, not able to answer the year, no motor deficits, speech is clear but slow, no peripheral sensory deficits Results & Data Laboratory Results Laboratory Results - last 24 hr 10/31/18 11/01/18 11/01/18 20:02 06:47 06:47 WBC 5.62 RBC 3.44 L Hgb 10.6 L Hct 31.7 L MCV 92.2 MCH 30.8 MCHC 33.4 RDW Std Deviation 51.5 H RDW Coeff of Jumana 15.7 H Plt Count 179 MPV 11.3 H Sodium 142 Potassium 3.3 L Chloride 107 Carbon Dioxide 29 Anion Gap 6.0 BUN 22 H Creatinine 1.51 H Est Cr Clr Drug Dosing 38.4 Est GFR ( Amer) 51.6 Est GFR (Non-Af Amer) 44.5 BUN/Creatinine Ratio 14.8 Glucose 115 H POC Glucose 160 H Calcium 7.8 L Magnesium 2.1 Total Bilirubin 0.5 AST 24 ALT 29 Alkaline Phosphatase 85 Total Protein 6.5 Albumin 1.7 L Globulin 4.8 H Albumin/Globulin Ratio 0.4 L 11/01/18 07:16 WBC RBC Hgb Hct MCV MCH MCHC RDW Std Deviation RDW Coeff of Jumana Plt Count MPV Sodium Potassium Chloride Carbon Dioxide Anion Gap BUN Creatinine Est Cr Clr Drug Dosing Est GFR ( Amer) Est GFR (Non-Af Amer) BUN/Creatinine Ratio Glucose POC Glucose 125 H Calcium Magnesium Total Bilirubin AST ALT Alkaline Phosphatase Total Protein Albumin Globulin Albumin/Globulin Ratio (1) UTI (urinary tract infection) Hematuria presence: without hematuria Urinary tract infection type: acute cystitis Qualified Code(s): N30.00 - Acute cystitis without hematuria (2) GI bleed GI bleed type/associated pathology: unspecified gastrointestinal hemorrhage type Qualified Code(s): K92.2 - Gastrointestinal hemorrhage, unspecified (3) Altered mental status Altered mental status type: delirium Qualified Code(s): R41.0 - Disorientation, unspecified
[2018-11-01] MEDS: cephALEXin 500 MG CAP PO SCH ×2 (13:29→13:44)
[2018-11-01] MEDS: cephALEXin 250 MG CAP PO SCH ×3 (14:26→21:25)
[2018-11-01] MEDS ORDERED: GLUCOSE 10 TABS/TUBE PO PRN (20:37)
[2018-11-01] MEDS ORDERED: DEXTROSE 50% 50 ML SYRINGE IV PRN (20:37)
[2018-11-01] MEDS ORDERED: GLUCOSE 40% GEL 15 GM TUBE PO PRN (20:37)
[2018-11-01] MEDS ORDERED: GLUCAGON FOR INJ 1 MG VIAL SQ PRN (20:37)
[2018-11-01] MEDS ORDERED: CARBOHYDRATES FOR HYPOGLYCEMIA PO PRN (20:37)
[2018-11-01] MEDS: DOCUSATE SODIUM 100 MG CAP PO SCH (21:25)
[2018-11-01] MEDS: EUCERIN CR 120 GM JAR EXT SCH (21:25)
[2018-11-01] MEDS: PANTOprazole 40 MG TAB PO SCH (21:26)
[2018-11-01] MEDS: INSULIN ASPART 100 UNITS/ML 3 ML PEN SC SCH (22:00)
[2018-11-02 07:19] LABS: Calcium 7.6 mg/dl (8.5-10.1); Creatinine Clr Calc Pharmacy 39.1 ml/min; Est GFR (African American) 48.1; Est GFR (Non-African American) 41.5; Magnesium 1.8 mg/dl (1.8-2.4); Potassium 3.6 mmol/L (3.5-5.1)
[2018-11-02] MEDS: POTASSIUM CHLORIDE 10 MEQ TABCR PO SCH (08:31)
[2018-11-02] MEDS: AMLODIPINE BESYLATE 5 MG TAB PO SCH (08:31)
[2018-11-02] MEDS: CARVEDILOL 6.25 MG TAB PO SCH (08:31)
[2018-11-02] MEDS: PANTOprazole 40 MG TAB PO SCH (08:31)
[2018-11-02] MEDS: FUROSEMIDE 20 MG TAB PO SCH (08:31)
[2018-11-02] MEDS: SUCRALFATE 1 GM/10 ML UDC PO SCH ×3 (08:31→17:17)
[2018-11-02] MEDS: ASPIRIN 81 MG ECTAB PO SCH (08:31)
[2018-11-02] MEDS: EUCERIN CR 120 GM JAR EXT SCH (08:32)
[2018-11-02] MEDS: cephALEXin 250 MG CAP PO SCH ×3 (08:32→17:17)
[2018-11-02] MEDS: INSULIN ASPART 100 UNITS/ML 3 ML PEN SC SCH ×3 (08:36→17:18)
--- NOTE | 2018-11-02 18:39 | Discharge Summary ---
Date of Service November 02, 2018 Admission HPI Per Admitting Provider This is a 77 yo M with PMHx of chronic combined systolic and diastolic congestive heart failure with LVEF of 25-30% on 10/15/18, with severe global hypokinesis, nonischemic cardiomyopathy, hx of bilateral pleural effusion, CKD unknown staging, UTI with pansensitive e.coli, indwelling white catheter with hx of dyronephrosis, recent pneumonia, aspiration, and falls. The patient was recently admitted from 10/10/18-10/22/18 for CHF exacerbation as well as fall, positive blood cultures which was due to UTI and pneumonia. Pt was discharged to [facility]. On 10/27/18 the patient presented to the ED for AMS. This improved with thae administration of Narcan, however there were no narcotic listed on med list. He was found to have residual UTI and was discharged on ceftriaxone 1 gm IM daily x 7 days. White catheter was changed on 10/27/18. At that time the patient hgb was 10.1, compared to ~12 during last admission, however I cannot find if a guiac was done in the ER. Today the patients Hgb is 8.9 and was sent due to BRBPR found in the patients brief, by staff at [facility]. Guiac today is heme +. Pt currently does not have abdominal complaints. He denies dizziness, lightheadedness, palpiations, flutter, sob. No fever or chills. Pt asks me if he is in the hospital, and is unable to tell me the year. He responds appropriately to most questions but response is slow. Principal Diagnosis no Discharge Data Allergies Allergy/AdvReac Type Severity Reaction Status Date / Time No Known Allergies Allergy Verified 10/29/18 09:24 Consultations 10/29/18 09:30 ED Decision to Admit Stat 10/29/18 11:51 Consult Case Management - Discharge Planning Routine Consult Gastroenterology Routine Ordered Studies 10/29/18 11:51 CT head/brain wo con Stat 10/29/18 16:09 CT abd pelvis oral con only Routine Hospital Course (1) GI bleed: (2) Altered mental status: (3) Acute on chronic combined systolic and diastolic congestive heart failure: (4) Cardiomyopathy: (5) Elevated troponin: (6) UTI (urinary tract infection): (7) Indwelling White catheter present: (8) Hypertension: (9) Urinary retention: (10) Diabetes mellitus: (11) CKD (chronic kidney disease): (12) Dysphagia: (13) DVT prophylaxis: 77 year-old male with a history of severe CHF and TERE admitted on October 29, 2018 with acute blood loss anemia, heme positive stool and BRBPR. 2 unit of blood transfusion has been stable improving acute blood loss anemia,Continues stable improving most likely secondary to stercoral ulcer of rectum seen on CT imaging. H/H stable, following transfusion of 2 u PRBC GI input appreciated, Continue Protonix 40 mg by mouth twice daily, Carafate 1 g by mouth QID, Advance diet as tolerated, Patient has been tolerate diet fair GI no plans for invasive workup due to multiple medical comorbidities Continue supportive care, patient continued to be stable today Altered mental status upon admission, resolved, Acute on chronic combined systolic and diastolic congestive heart failure: Echo completed during last admission- EF 25-30% with severe global hypokinesis; euvolemic currently. No JVD, no edema BLE. Strict I/Os, daily weights Cardiomyopathy with Elevated troponin: Stable E. coli Uti, was on ceftriaxone IV, switched to oral antibiotic Keflex Indwelling White catheter present, Changed in the ER on 10/27/18, continue for now. Hypertension, CKD, dysphagia, Diet per speech therapy diabetic, stable, continue current care, GI prophylaxis is covered, DVT prophylaxis is related to contraindicated pt mneed to Continue Protonix 40 mg by mouth twice daily, Carafate 1 g by mouth QID, pt have Acute on chronic combined systolic and diastolic congestive heart failure: we have decreased lasix from 40 to 20, new medicine includes Amlodipine Subjective upon discharge continue doing good, tolerate diet, awake alert orientated, Denied bright red blood per rectum, Review of system upon discharge constitutional: + fatigue and + weakness; no fever and no chills Ear, Nose, Mouth, Throat: positive dry mouth and no sore throat Respiratory: no cough, no dyspnea and no dyspnea on exertion Cardiovascular: + edema; no chest pain and no orthopnea Gastrointestinal: no abdominal pain, no nausea, no vomiting, Genitourinary (Male): no dysuria Physical Exam at discharge General: awake, alert, no apparent distress, Looks much better and then 2 days ago Head: Normocephalic, atraumatic HHENT: PERRL, EOMI, no pharyngeal exudate, mucous membranes moist, poor dentition Chest: Diminished slightly at bases, no adventitious breath sounds Cardiac: Regular rate and rhythm, + soft SANJUANITA, no JVD, normal peripheral pulses, good capillary refill Abdominal: NABS x 4 quadrants, soft, nontender to palpation, no rebound, guarding or tenderness Extremities: chronic skin changes, Normal inspection, no peripheral edema or erythema, Neuro: Awake, oriented to self, asks if he is in the hospital, not able to answer the year, no motor deficits, speech is clear but slow, no peripheral sensory deficits Lab data at discharge: Laboratory Results - last 24 hr 11/01/18 11/02/18 11/02/18 20:53 06:33 07:58 Sodium 138 Potassium 3.6 Chloride 103 Carbon Dioxide 29 Anion Gap 6.0 BUN 21 H Creatinine 1.60 H Est Cr Clr Drug Dosing 39.1 Est GFR ( Amer) 48.1 Est GFR (Non-Af Amer) 41.5 BUN/Creatinine Ratio 13.0 Glucose 133 H POC Glucose 178 H 130 H Calcium 7.6 L Magnesium 1.8 11/02/18 11/02/18 11:34 16:21 Sodium Potassium Chloride Carbon Dioxide Anion Gap BUN Creatinine Est Cr Clr Drug Dosing Est GFR ( Amer) Est GFR (Non-Af Amer) BUN/Creatinine Ratio Glucose POC Glucose 181 H 219 H Calcium Magnesium Total Time Total Time Spent Total Time Spent (In Minutes): 35 Total Time Includes: Examination of the Patient, Discharge Planning, Medication Reconciliation and Communication With Other Providers Discharge Plan Discharge Items Patient Disposition[facility] Reason For Visit: GI BLEED Discharge Diagnosis: stercoral ulcer of rectum Condition: Fair Discharge Goals: Decrease discomfort, Diagnostic testing, Improve disease control, Improve function, Increase independence, Learn about illness, Specific goals and Therapeutic intervention Activity: Resume your previous activity Non-emergency contact: Primary Care Provider Call non-emergency contact if: you have any medication questions Follow-up/Referrals: Jose E Duran, [Primary Care Provider] - Diet: Heart Healthy Addtl Provider Instructions: you have acute blood loss anemia, most likely secondary to stercoral ulcer of rectum mneed to Continue Protonix 40 mg by mouth twice daily, Carafate 1 g by mouth QID, you have Acute on chronic combined systolic and diastolic congestive heart failure: I have decreased lasix from 40 to 20, new medicine includes Amlodipine Indwelling White catheter present, Changed in the ER on 10/27/18, continue for now. you need to follow up with your primary care physician in 1 week, - take medication as instructed, never overdose or any misuse, or take with alcohol, because misuse of medicine may cause organ damage or , call me, or your primary care physician if have questions of discharge medicaitons. - call your primary care physician, or go to local emergency room if has any fever/chill, chest pain, shortness of breathing, nausea/vomiting/abdominal pain, facial droop/slurry speech/local weakness, or if has any questions. - fall precaution - diet as instructed Prescriptions: New cephalexin 250 mg Capsule 250 mg PO QID 2 Days Qty: 8 RF: 0 amlodipine [Norvasc] 5 mg Tablet 5 mg PO QAM 30 Days Qty: 30 RF: 0 sucralfate 100 mg/mL Suspension 10 ml PO QID 14 Days Qty: 560 RF: 0 pantoprazole 40 mg Tablet,Delayed Release (Dr/Ec) 40 mg PO BID 14 Days Qty: 28 RF: 0 docusate sodium 100 mg Capsule 100 mg PO HS 14 Days Qty: 14 RF: 0 Continued acetaminophen 325 mg Tablet 325 mg PO Q6H PRN (Reason: Pain) RF: 0 carvedilol 6.25 mg Tablet 18.75 mg PO BID 30 Days Qty: 180 RF: 0 aspirin [Ecotrin Low Strength] 81 mg Tablet,Delayed Release (Dr/Ec) 81 mg PO QAM 30 Days Qty: 30 RF: 0 Changed furosemide [Lasix] 40 mg tablet 20 mg PO DAILY 30 Days Qty: 30 RF: 0 potassium chloride [Klor-Con M10] 10 mEq Tablet,Er Particles/Crystals 10 meq PO DAILY 30 Days Qty: 60 RF: 0 Discontinued ceftriaxone 1 gram Recon Soln 1 g IV DAILY RF: 0 Stand-Alone Forms: [facility] Discharge Orders: Discharge Order (Routine); Ordered 11/02/18 Ordered By: Sajan De León Admission Data Admit Date/Time: 10/29/18 09:50 Attending Provider: Sajan De León Admit Provider: Sajan De León Primary Care Provider: Jose E Duran. Other Providers: Mahendra Neal ; Moe Jasmine Service: Medical Other Interventions: Discharge Summary Assessment (RN) Last Done: 11/02/18 13:13 DC Date/Time DO NOT enter until pt leaves facility: 11/02/18 17:51
== END 2018-11-02 17:51 | DRG 393 ==
LOC: ED 08:05 → 2S 09:50 → 4W 11-01 12:49